=== PATIENT | male | born 1965 | race Caucasian/White ===

== ENCOUNTER 2017-03-25 09:40 | Emergency (ER) | payer OTHER ==
[2017-03-25] MEDS ORDERED: HYDROmorphone 1 MG/ML 1 ML SYRINGE IVP STA (10:18)
[2017-03-25] MEDS ORDERED: ACETAMINOPHEN TAB 500 MG TAB PO STA (10:18)
[2017-03-25] MEDS ORDERED: SODIUM CHLORIDE 0.9% 1,000 ML IV STA ×2 (10:18)
[2017-03-25] MEDS ORDERED: ONDANSETRON 4 MG/2 ML VIAL IVP STA (10:18)
[2017-03-25] MEDS ORDERED: AMPICILLIN-SULBACTAM 3 GM in SODIUM CHLORIDE 0.9% 100 ML IVPB STA (10:19)
[2017-03-25] MEDS ORDERED: KETOROLAC 30 MG/ML 1 ML VIAL IVP STA (10:19)
[2017-03-25] MEDS ORDERED: METOCLOPRAMIDE 5 MG/ML 2 ML VIAL IVP STA (10:25)
--- NOTE | 2017-03-25 10:25 | ED ---
General Adult HPI - General Chief complaint: Dental/Oral Stated complaint: Oral Pain Time Seen by Provider: 03/25/17 10:13 Source: patient Mode of arrival: ambulatory Limitations: no limitations - History of Present Illness Initial comments: This 21-year-old white male presents with a complaint of some right lower dental pain for 2 days. He states that his tooth rotted out and fell out 2 days ago. He also has had some chills but has not checked for any fevers. He complains of a headache as well as occasional neck pain. He has had a cough without production. He states that the pain is severe in nature. He denies any urinary symptoms. He denies any abdominal or flank pain. He states that he took an unknown antibiotic that was left over. He states that it started with an a and was 800 mg. He was nauseated yesterday and vomited. No other complaints or modifying factors. - Related Data Home Medications Medication Instructions Recorded Confirmed Lisinopril [Zestril] 5 mg PO DAILY 03/20/14 03/25/17 Atorvastatin [Lipitor] 20 mg PO HS 01/05/16 03/25/17 Insulin Glargine [Lantus] 25 unit SQ BID 01/05/16 03/25/17 Insulin Glulisine [Apidra Solostar] 15 unit SQ AC-TID 01/05/16 03/25/17 Albuterol Inhaler [Ventolin Hfa 2 puff INHALATION RT-QID 03/25/17 03/25/17 Inhaler] Mometasone/Formoterol [Dulera 100 2 puff INHALATION RT-BID 03/25/17 03/25/17 Mcg/5 Mcg Inhaler] Ranitidine HCl 150 mg PO DAILY PRN 03/25/17 03/25/17 Previous Rx's Medication Instructions Recorded Clindamycin [Cleocin] 300 mg PO Q6H #40 capsule 03/25/17 Ondansetron [Zofran ODT] 8 mg PO Q8HR PRN #12 tab 03/25/17 traMADol HCl [Ultram] 50 - 100 mg PO Q6H PRN #15 tab 03/25/17 Allergies Allergy/AdvReac Type Severity Reaction Status Date / Time cephalexin [From Keflex] AdvReac Nausea & Verified 03/25/17 10:27 Vomiting codeine AdvReac Abdominal Verified 03/25/17 10:27 Pain Review of Systems ROS Statement: Those systems with pertinent positive or pertinent negative responses have been documented in the HPI. ROS Other: All systems not noted in ROS Statement are negative. Past Medical History Past Medical History: Diabetes Mellitus, Hyperlipidemia, Hypertension Additional Past Medical History / Comment(s): migraines, closed head injury History of Any Multi-Drug Resistant Organisms: None Reported Past Surgical History: Orthopedic Surgery Additional Past Surgical History / Comment(s): right leg Past Psychological History: No Psychological Hx Reported Smoking Status: Current every day smoker Past Alcohol Use History: None Reported Past Drug Use History: None Reported General Exam - General Exam Comments Initial Comments: GENERAL: The patient is well nourished and well hydrated. VITAL SIGNS: Heart rate, blood pressure, respiratory rate reviewed as recorded in nurse's notes. EYES: Pupils are round and reactive. Extraocular movements are intact. No conjunctival / lid redness or swelling. ENT: There is significant dental decay throughout mouth. There is increased gingival swelling noted on the right lower dentition. There is no drainable abscess noted. There is some mild facial swelling in the right lower jaw. There is no evidence of Tito's angina or obvious abscess. Airway is patent. Throat is clear. NECK: There is some mild tenderness to the bilateral paracervical musculature. No meningeal signs. No swelling or evidence of injury. No subcutaneous emphysema. Trachea is midline. No thyroid mass. HEART: Regular rate and rhythm. Good peripheral pulses. LUNGS/CHEST: Breath sounds clear and equal bilaterally. No rales, rhonchi, or wheezes. No ecchymosis, subcutaneous emphysema, or tenderness. ABDOMEN: Abdomen soft without tenderness. No palpable masses or organomegaly. No peritoneal signs. No abdominal wall swelling or ecchymosis. EXTREMITIES: No extremity tenderness. Normal muscle tone and function. No thoracolumbar tenderness. NEUROLOGIC: Sensation is grossly intact. Cranial nerve exam reveals face is symmetrical, tongue is midline, speech is clear. SKIN: No abrasions or ecchymosis is noted. No induration or masses noted. PSYCHIATRIC: Alert and oriented. Appropriate behavior and judgment. Limitations: no limitations Course Vital Signs 03/25/17 03/25/17 10:06 11:02 Temperature 101.7 F H Pulse Rate 100 105 H Respiratory 20 18 Rate Blood Pressure 168/88 163/90 O2 Sat by Pulse 98 98 Oximetry Medical Decision Making - Medical Decision Making The patient is seen and examined. All diagnostics were reviewed. An IV is started and he is hydrated. He receives Toradol, Unasyn, Tylenol, and Dilaudid. He is feeling improved on recheck. His laboratory is reviewed and does show elevation of his blood sugar but he is a diabetic and takes insulin. He had a negative chest x-ray. This felt that he definitely has a right periapical abscess with some mild right facial swelling. This is likely the focus of his infection. He is not complaining of any further headaches or neck pain on recheck. It is felt as though he is stable for discharge. Return parameters are discussed. It is highly emphasized that he follow-up with a dentist as soon as possible. - Lab Data Result diagrams: 03/25/17 10:42 03/25/17 10:42 Lab Results 03/25/17 03/25/17 Range/Units 10:42 10:42 WBC 5.5 (3.8-10.6) k/uL RBC 4.44 (4.30-5.90) m/uL Hgb 14.1 (13.0-17.5) gm/dL Hct 40.8 (39.0-53.0) % MCV 92.0 (80.0-100.0) fL MCH 31.8 (25.0-35.0) pg MCHC 34.6 (31.0-37.0) g/dL RDW 13.1 (11.5-15.5) % Plt Count 164 (150-450) k/uL Neutrophils % 80 % Lymphocytes % 12 % Monocytes % 6 % Eosinophils % 1 % Basophils % 0 % Neutrophils # 4.4 (1.3-7.7) k/uL Lymphocytes # 0.7 L (1.0-4.8) k/uL Monocytes # 0.3 (0-1.0) k/uL Eosinophils # 0.1 (0-0.7) k/uL Basophils # 0.0 (0-0.2) k/uL Sodium 137 (137-145) mmol/L Potassium 4.7 (3.5-5.1) mmol/L Chloride 106 (98-107) mmol/L Carbon Dioxide 19 L (22-30) mmol/L Anion Gap 12 mmol/L BUN 17 (9-20) mg/dL Creatinine 0.91 (0.66-1.25) mg/dL Est GFR (MDRD) Af Amer >60 (>60 ml/min/1.73 sqM) Est GFR (MDRD) Non-Af >60 (>60 ml/min/1.73 sqM) Glucose 238 H (74-99) mg/dL Calcium 8.9 (8.4-10.2) mg/dL Disposition Clinical Impression: Fever, Hypertension, Dental caries, Dental abscess, Headache, Nausea and vomiting Disposition: HOME SELF-CARE Condition: Good Instructions: Dental Abscess (ED), Dental Caries (ED), Hypertension (ED) Additional Instructions: Please take Tylenol and/or Motrin as needed for pain or fever. Please follow- up with a dentist as soon as possible. Prescriptions: Clindamycin [Cleocin] 300 mg PO Q6H #40 capsule Ondansetron [Zofran ODT] 8 mg PO Q8HR PRN #12 tab PRN Reason: Nausea traMADol HCl [Ultram] 50 - 100 mg PO Q6H PRN #15 tab PRN Reason: Pain Referrals: Alexy Evangelista MD [Primary Care Provider] - 1-2 days Time of Disposition: 12:58
[2017-03-25 11:13] LABS: Basophils % (A) 0 %; CH 31.3; CHCM 34.2; Eosinophils # (A) 0.1 k/uL (0-0.7); Eosinophils % (A) 1 %; HCT 40.8 % (39.0-53.0); HDW 2.39; HGB 14.1 gm/dL (13.0-17.5); Luc # (Auto) 0.08; Luc % (Auto) 2; Lymphocytes # (A) 0.7 k/uL (1.0-4.8); Lymphocytes % (A) 12 %; MCH 31.8 pg (25.0-35.0); MCHC 34.6 g/dL (31.0-37.0); Mean Platelet Volume 7.8; Monocytes # (A) 0.3 k/uL (0-1.0); Monocytes % (A) 6 %; Neutrophils # (A) 4.4 k/uL (1.3-7.7); Neutrophils % (A) 80 %; RBC 4.44 m/uL (4.30-5.90); RDW 13.1 % (11.5-15.5); WBC 5.5 k/uL (3.8-10.6); WBC (Perox) 5.42
[2017-03-25 11:21] LABS: Anion Gap 12 mmol/L; Blood Urea Nitrogen 17 mg/dL (9-20); Calcium 8.9 mg/dL (8.4-10.2); Carbon Dioxide 19 mmol/L (22-30); Chloride 106 mmol/L (98-107); Glucose 238 mg/dL (74-99); Non-African American GFR(MDRD) >60 (>60 ml/min/1.73 sqM); Potassium 4.7 mmol/L (3.5-5.1); Sodium 137 mmol/L (137-145)
--- NOTE | 2017-03-25 11:31 | XR ---
EXAMINATION TYPE: XR chest 2V DATE OF EXAM: 03/25/2017 COMPARISON: Chest x-ray September 20, 2012 HISTORY: Weakness per order. New fever and lethargy. TECHNIQUE: Frontal and lateral views of the chest are obtained. FINDINGS: There is no focal air space opacity, pleural effusion, or pneumothorax seen. The cardiac silhouette size is within normal limits. Fracture deformity right posterior ninth rib is favored old. IMPRESSION: No suspicious acute pulmonary process.
[2017-03-25 13:25] VITALS: BP 114/62; PULSE 62; RESP 14; TEMP 97.7
== END 2017-03-25 13:31 | disposition home or self-care (01) ==
LOC: EC 09:40
DX: K02.9 Dental caries, unspecified (principal); K04.7 Periapical abscess without sinus; R51 Headache; R11.2 Nausea with vomiting, unspecified; I10 Essential (primary) hypertension; R50.9 Fever, unspecified; E11.9 Type 2 diabetes mellitus without complications; E78.5 Hyperlipidemia, unspecified; F17.200 Nicotine dependence, unspecified, uncomplicated; Z79.4 Long term (current) use of insulin; Z79.899 Other long term (current) drug therapy; Z88.1 Allergy status to other antibiotic agents; Z88.5 Allergy status to narcotic agent
CPT/HCPCS: 36415; 80048; 85025; 87040; 71020; 99283; 96365; 96375 ×3; 96361 ×2; J2765; J1885; J1170; J0295

== ENCOUNTER 2017-04-28 10:40 | Emergency (ER) | payer OTHER ==
[2017-04-28] MEDS ORDERED: SODIUM CHLORIDE 0.9% 500 ML IV ONE (11:18)
--- NOTE | 2017-04-28 11:24 | ED ---
General Adult HPI - General Chief complaint: Seizure Stated complaint: seizure Time Seen by Provider: 04/28/17 10:45 Source: patient, RN notes reviewed Mode of arrival: wheelchair Limitations: no limitations - History of Present Illness Initial comments: This is a 51-year-old male who presents to the emergency department because he woke up late for work. Patient states he might of had a seizure that wasn't witnessed. Patient states he has a history of seizures. Patient thinks he had a seizure because he never wakes up late for work. Patient denies any fever chills. Patient has a mild headache. Patient denies any neck pain. Patient denies chest pain palpitations difficulty breathing shortness breath per patient denies any abdominal pain patient denies nausea vomiting diarrhea. - Related Data Home Medications Medication Instructions Recorded Confirmed Lisinopril [Zestril] 5 mg PO DAILY 03/20/14 04/28/17 Atorvastatin [Lipitor] 20 mg PO HS 01/05/16 04/28/17 Insulin Glargine [Lantus] 35 unit SQ BID 01/05/16 04/28/17 Insulin Glulisine [Apidra Solostar] 15 unit SQ AC-TID 01/05/16 04/28/17 Albuterol Inhaler [Ventolin Hfa 2 puff INHALATION RT-QID 03/25/17 04/28/17 Inhaler] Mometasone/Formoterol [Dulera 100 2 puff INHALATION RT-BID 03/25/17 04/28/17 Mcg/5 Mcg Inhaler] Ranitidine HCl 150 mg PO DAILY PRN 03/25/17 04/28/17 Fluticasone Nasal [place] [Flonase 1 spray EA NOSTRIL DAILY PRN 04/28/17 04/28/17 Nasal [place]] Gabapentin [Neurontin] 800 mg PO TID 04/28/17 04/28/17 Phenytoin Sodium Extended 100 mg PO TID 04/28/17 04/28/17 [Dilantin] Previous Rx's Medication Instructions Recorded Ondansetron [Zofran ODT] 8 mg PO Q8HR PRN #12 tab 03/25/17 Allergies Allergy/AdvReac Type Severity Reaction Status Date / Time cephalexin [From Keflex] AdvReac Nausea & Verified 04/28/17 11:14 Vomiting codeine AdvReac Abdominal Verified 04/28/17 11:14 Pain Review of Systems ROS Statement: Those systems with pertinent positive or pertinent negative responses have been documented in the HPI. ROS Other: All systems not noted in ROS Statement are negative. Past Medical History Past Medical History: Diabetes Mellitus, Hyperlipidemia, Hypertension, Seizure Disorder Additional Past Medical History / Comment(s): migraines, closed head injury History of Any Multi-Drug Resistant Organisms: None Reported Past Surgical History: Orthopedic Surgery Additional Past Surgical History / Comment(s): right leg Past Psychological History: No Psychological Hx Reported Smoking Status: Current every day smoker Past Alcohol Use History: None Reported Past Drug Use History: None Reported General Exam - General Exam Comments Initial Comments: GENERAL: Patient is well-developed and well-nourished. Patient is nontoxic and well- hydrated and is in no acute distress. ENT: Neck is soft and supple. No significant lymphadenopathy is noted. Oropharynx is clear. Moist mucous membranes. Neck has full range of motion without eliciting any pain. EYES: The sclera were anicteric and conjunctiva were pink and moist. Extraocular movements were intact and pupils were equal round and reactive to light. Eyelids were unremarkable. PULMONARY: Unlabored respirations. Good breath sounds bilaterally. No audible rales rhonchi or wheezing was noted. CARDIOVASCULAR: There is a regular rate and rhythm without any murmurs gallops or rubs. ABDOMEN: Soft and nontender with normal bowel sounds. No palpable organomegaly was noted. There is no palpable pulsatile mass. SKIN: Skin is clear with no lesions or rashes and otherwise unremarkable. NEUROLOGIC: Patient is alert and oriented x3. Cranial nerves II through XII are grossly intact. Motor and sensory are also intact. Normal speech, volume and content. Symmetrical smile. MUSCULOSKELETAL: Normal extremities with adequate strength and full range of motion. No lower extremity swelling or edema. No calf tenderness. LYMPHATICS: No significant lymphadenopathy is noted PSYCHIATRIC: Normal psychiatric evaluation. Normal interpersonal interactions appears functionally intact in deals appropriately with others. Limitations: no limitations Course Vital Signs 04/28/17 10:42 Temperature 97.1 F L Pulse Rate 100 Respiratory 18 Rate Blood Pressure 130/81 O2 Sat by Pulse 100 Oximetry Medical Decision Making - Medical Decision Making When the patient's Dilantin came back 0 I confronted the patient about taking his Dilantin and he admitted he is not taking his Dilantin regularly - Lab Data Result diagrams: 04/28/17 11:30 04/28/17 11:30 Lab Results 04/28/17 04/28/17 Range/Units 11:30 11:30 WBC 5.4 (3.8-10.6) k/uL RBC 3.95 L (4.30-5.90) m/uL Hgb 13.6 (13.0-17.5) gm/dL Hct 38.2 L (39.0-53.0) % MCV 96.7 (80.0-100.0) fL MCH 34.5 (25.0-35.0) pg MCHC 35.7 (31.0-37.0) g/dL RDW 14.9 (11.5-15.5) % Plt Count 167 (150-450) k/uL Neutrophils % 74 % Lymphocytes % 20 % Monocytes % 5 % Eosinophils % 1 % Basophils % 0 % Neutrophils # 4.0 (1.3-7.7) k/uL Lymphocytes # 1.1 (1.0-4.8) k/uL Monocytes # 0.3 (0-1.0) k/uL Eosinophils # 0.0 (0-0.7) k/uL Basophils # 0.0 (0-0.2) k/uL Sodium 139 (137-145) mmol/L Potassium 4.9 (3.5-5.1) mmol/L Chloride 107 (98-107) mmol/L Carbon Dioxide 23 (22-30) mmol/L Anion Gap 9 mmol/L BUN 15 (9-20) mg/dL Creatinine 0.80 (0.66-1.25) mg/dL Est GFR (MDRD) Af Amer >60 (>60 ml/min/1.73 sqM) Est GFR (MDRD) Non-Af >60 (>60 ml/min/1.73 sqM) Glucose 120 H (74-99) mg/dL Calcium 8.8 (8.4-10.2) mg/dL Total Bilirubin 0.5 (0.2-1.3) mg/dL AST 33 (17-59) U/L ALT 39 (21-72) U/L Alkaline Phosphatase 97 (38-126) U/L Total Protein 6.6 (6.3-8.2) g/dL Albumin 3.9 (3.5-5.0) g/dL Phenytoin <3.0 ug/mL Disposition Clinical Impression: Drug noncompliance, Generalized seizure Disposition: HOME SELF-CARE Condition: Good Instructions: Recurrent Seizures in Adults (ED) Additional Instructions: Patient must take his Dilantin as it is prescribed. Referrals: Alexy Evangelista MD [Primary Care Provider] - 1-2 days Time of Disposition: 12:16
[2017-04-28 11:58] LABS: ALT 39 U/L (21-72); AST 33 U/L (17-59); Alkaline Phosphatase 97 U/L (38-126); Anion Gap 9 mmol/L; Blood Urea Nitrogen 15 mg/dL (9-20); Calcium 8.8 mg/dL (8.4-10.2); Carbon Dioxide 23 mmol/L (22-30); Chloride 107 mmol/L (98-107); Glucose 120 mg/dL (74-99); Non-African American GFR(MDRD) >60 (>60 ml/min/1.73 sqM); Potassium 4.9 mmol/L (3.5-5.1); Sodium 139 mmol/L (137-145); Total Bilirubin 0.5 mg/dL (0.2-1.3); Total Protein 6.6 g/dL (6.3-8.2)
[2017-04-28 12:01] LABS: Basophils % (A) 0 %; CH 32.4; CHCM 33.7; Eosinophils % (A) 1 %; HCT 38.2 % (39.0-53.0); HDW 2.46; HGB 13.6 gm/dL (13.0-17.5); Luc # (Auto) 0.06; Luc % (Auto) 1; Lymphocytes # (A) 1.1 k/uL (1.0-4.8); Lymphocytes % (A) 20 %; MCH 34.5 pg (25.0-35.0); MCHC 35.7 g/dL (31.0-37.0); MCV 96.7 fL (80.0-100.0); Monocytes # (A) 0.3 k/uL (0-1.0); Monocytes % (A) 5 %; Neutrophils % (A) 74 %; RBC 3.95 m/uL (4.30-5.90); RDW 14.9 % (11.5-15.5); WBC 5.4 k/uL (3.8-10.6); WBC (Perox) 5.45
[2017-04-28] MEDS ORDERED: PHENYTOIN SODIUM INJ 1,000 MG in SODIUM CHLORIDE 0.9% 100 ML IVPB STA (12:12)
[2017-04-28 13:03] VITALS: BP 147/88; PULSE 81; RESP 20; TEMP 98.1
== END 2017-04-28 13:17 | disposition home or self-care (01) ==
LOC: EC 10:40
DX: R56.9 Unspecified convulsions (principal); E11.9 Type 2 diabetes mellitus without complications; E78.5 Hyperlipidemia, unspecified; I10 Essential (primary) hypertension; F17.200 Nicotine dependence, unspecified, uncomplicated; Z79.4 Long term (current) use of insulin; Z79.51 Long term (current) use of inhaled steroids; Z79.899 Other long term (current) drug therapy; Z88.1 Allergy status to other antibiotic agents; Z88.5 Allergy status to narcotic agent; Z91.14 Patient's other noncompliance with medication regimen
CPT/HCPCS: 99284 ×2; 96365 ×2; 96361 ×2; 36415; 80053; 80185; 85025; J1165

== ENCOUNTER 2017-05-03 15:37 | Emergency (ER) | payer OTHER ==
[2017-05-03 16:25] LABS: Glucose,Whole Blood 85 mg/dL (75-99)
--- NOTE | 2017-05-03 16:33 | ED ---
Recheck HPI - General Chief Complaint: Recheck/Abnormal Lab/Rx Stated Complaint: Hypoglycemia Time Seen by Provider: 05/03/17 15:38 Source: patient, EMS, RN notes reviewed Mode of arrival: EMS Limitations: no limitations - History of Present Illness Initial Comments: This a 51-year-old male presents emergency Department chief complaint of hypoglycemia. Patient's girlfriend called EMS because patient was lethargic and less responsive than usual. He is on have a blood glucose of 38. Patient was given dextrose which his blood sugar was 212. Patient states that he feels completely normal this time. Patient states she's been having issues with this ever since his long-acting insulin was switched from Lantus. Patient states that his insulin was increased to 35 units twice daily. Patient is not sure because his long-acting or short-acting states he does not think he can insulin after lunch. Patient states this was recently increased because his A1c was elevated to 9. Patient states that he was also given generic long-acting because was cheaper for him. - Related Data Home Medications Medication Instructions Recorded Confirmed Lisinopril [Zestril] 5 mg PO DAILY 03/20/14 05/03/17 Atorvastatin [Lipitor] 20 mg PO HS 01/05/16 05/03/17 Insulin Glulisine [Apidra Solostar] 15 unit SQ AC-TID 01/05/16 05/03/17 Albuterol Inhaler [Ventolin Hfa 2 puff INHALATION RT-QID PRN 03/25/17 05/03/17 Inhaler] Mometasone/Formoterol [Dulera 100 2 puff INHALATION RT-BID 03/25/17 05/03/17 Mcg/5 Mcg Inhaler] Ranitidine HCl 150 mg PO DAILY PRN 03/25/17 05/03/17 Fluticasone Nasal [place] [Flonase 1 spray EA NOSTRIL DAILY PRN 04/28/17 05/03/17 Nasal [place]] Gabapentin [Neurontin] 800 mg PO TID 04/28/17 05/03/17 Phenytoin Sodium Extended 100 mg PO TID 04/28/17 05/03/17 [Dilantin] Insulin Glargine,Hum.rec.anlog 35 unit SQ BID 05/03/17 05/03/17 [Basaglar Kwikpen U-100] Previous Rx's Medication Instructions Recorded Ondansetron [Zofran ODT] 8 mg PO Q8HR PRN #12 tab 03/25/17 Allergies Allergy/AdvReac Type Severity Reaction Status Date / Time cephalexin [From Keflex] AdvReac Nausea & Verified 05/03/17 16:41 Vomiting codeine AdvReac Abdominal Verified 05/03/17 16:41 Pain Review of Systems ROS Statement: Those systems with pertinent positive or pertinent negative responses have been documented in the HPI. ROS Other: All systems not noted in ROS Statement are negative. Past Medical History Past Medical History: Diabetes Mellitus, Hyperlipidemia, Hypertension, Seizure Disorder Additional Past Medical History / Comment(s): migraines, closed head injury History of Any Multi-Drug Resistant Organisms: None Reported Past Surgical History: Orthopedic Surgery Additional Past Surgical History / Comment(s): right leg Past Psychological History: No Psychological Hx Reported Smoking Status: Current every day smoker Past Alcohol Use History: None Reported Past Drug Use History: None Reported General Exam Limitations: no limitations General appearance: alert, in no apparent distress Head exam: Present: atraumatic, normocephalic, normal inspection Eye exam: Present: normal appearance, PERRL, EOMI. Absent: scleral icterus, conjunctival injection, periorbital swelling ENT exam: Present: normal exam, normal oropharynx, mucous membranes moist, TM's normal bilaterally, normal external ear exam Neck exam: Present: normal inspection, full ROM. Absent: tenderness, meningismus, lymphadenopathy Respiratory exam: Present: normal lung sounds bilaterally. Absent: respiratory distress, wheezes, rales, rhonchi, stridor Cardiovascular Exam: Present: regular rate, normal rhythm, normal heart sounds. Absent: systolic murmur, diastolic murmur, rubs, gallop, clicks GI/Abdominal exam: Present: soft, normal bowel sounds. Absent: distended, tenderness, guarding, rebound, rigid Neurological exam: Present: alert, oriented X3, CN II-XII intact Skin exam: Present: warm, dry, intact, normal color. Absent: rash Course Vital Signs 05/03/17 05/03/17 15:41 18:30 Temperature 97.4 F L 98.1 F Pulse Rate 79 81 Respiratory 18 16 Rate Blood Pressure 129/80 136/73 O2 Sat by Pulse 98 100 Oximetry Medical Decision Making - Medical Decision Making 51-year-old male present emergency department for hypoglycemic event. Patient' s glucose has stabilized. I did a long discussion with him regarding his insulin use and pulse monitoring. Patient is advised he needs to monitor frequently tonight and keep something on him at this time. He needs follow-up for adjustment of his insulin and needs further education. Return parameters were discussed. - Lab Data Lab Results 05/03/17 05/03/17 05/03/17 Range/Units 16:22 17:06 17:46 POC Glucose (mg/dL) 85 102 H 91 (75-99) mg/dL POC Glu Reinforced Ironworker ID Helen Beard Megan Shuler, Cecelia 05/03/17 Range/Units 18:23 POC Glucose (mg/dL) 106 H (75-99) mg/dL POC Glu Reinforced Ironworker ID Gaviota Harris Disposition Clinical Impression: Hypoglycemia Disposition: HOME SELF-CARE Condition: Stable Instructions: Hypoglycemia in a Person with Diabetes (ED) Additional Instructions: Please return to the Emergency Department if symptoms worsen or any other concerns. Referrals: Alexy Evangelista MD [Primary Care Provider] - 1-2 days Time of Disposition: 18:36
[2017-05-03 17:09] LABS: Glucose,Whole Blood 102 mg/dL (75-99)
[2017-05-03 17:50] LABS: Glucose,Whole Blood 91 mg/dL (75-99)
[2017-05-03 18:26] LABS: Glucose,Whole Blood 106 mg/dL (75-99)
[2017-05-03 18:33] VITALS: BP 136/73; PULSE 81; RESP 16; TEMP 98.1
== END 2017-05-03 18:44 | disposition home or self-care (01) ==
LOC: EC 15:37
DX: E11.649 Type 2 diabetes mellitus with hypoglycemia without coma (principal); E78.5 Hyperlipidemia, unspecified; I10 Essential (primary) hypertension; G40.909 Epilepsy, unspecified, not intractable, without status epilepticus; F17.200 Nicotine dependence, unspecified, uncomplicated; Z79.4 Long term (current) use of insulin; Z79.51 Long term (current) use of inhaled steroids; Z79.899 Other long term (current) drug therapy; Z88.1 Allergy status to other antibiotic agents; Z88.5 Allergy status to narcotic agent
CPT/HCPCS: 36415; 99285

== ENCOUNTER 2017-05-10 16:54 | Emergency (ER) | payer OTHER ==
[2017-05-10 17:27] LABS: Glucose,Whole Blood 86 mg/dL (75-99)
--- NOTE | 2017-05-10 17:42 | ED ---
General Adult HPI - General Chief complaint: Recheck/Abnormal Lab/Rx Stated complaint: Low Blood Sugar Time Seen by Provider: 05/10/17 17:01 Source: patient, EMS, RN notes reviewed Mode of arrival: EMS Limitations: no limitations - History of Present Illness Initial comments: 51-year-old male presents emergency from via EMS chief complaint of a syncopal event. Patient states that he is not sure exactly what happened. Patient states he may have gotten into much insulin though he does state he's been having a lot of issues with new generic long-acting insulin. Patient states that he's had several events like this has been seen in the hospital. Patient states that today he woke up in the EMS and was confused. Patient states he feels completely normal at this time. Patient's girlfriend did call 911 because he was confused patient denies headache, dizziness, chest pain, shortness breath, nausea, vomiting diarrhea constipation. - Related Data Home Medications Medication Instructions Recorded Confirmed Lisinopril [Zestril] 5 mg PO DAILY 03/20/14 05/10/17 Atorvastatin [Lipitor] 20 mg PO HS 01/05/16 05/10/17 Insulin Glulisine [Apidra Solostar] 15 unit SQ AC-TID 01/05/16 05/10/17 Albuterol Inhaler [Ventolin Hfa 2 puff INHALATION RT-QID PRN 03/25/17 05/10/17 Inhaler] Mometasone/Formoterol [Dulera 100 2 puff INHALATION RT-BID 03/25/17 05/10/17 Mcg/5 Mcg Inhaler] Ranitidine HCl 150 mg PO DAILY PRN 03/25/17 05/10/17 Fluticasone Nasal [place] [Flonase 1 spray EA NOSTRIL DAILY PRN 04/28/17 05/10/17 Nasal [place]] Gabapentin [Neurontin] 800 mg PO TID 04/28/17 05/10/17 Phenytoin Sodium Extended 100 mg PO TID 04/28/17 05/10/17 [Dilantin] Insulin Glargine,Hum.rec.anlog 35 unit SQ BID 05/03/17 05/10/17 [Basaglar Kwikpen U-100] Previous Rx's Medication Instructions Recorded Ondansetron [Zofran ODT] 8 mg PO Q8HR PRN #12 tab 03/25/17 Allergies Allergy/AdvReac Type Severity Reaction Status Date / Time cephalexin [From Keflex] AdvReac Nausea & Verified 05/10/17 17:20 Vomiting codeine AdvReac Abdominal Verified 05/10/17 17:20 Pain Review of Systems ROS Statement: Those systems with pertinent positive or pertinent negative responses have been documented in the HPI. ROS Other: All systems not noted in ROS Statement are negative. Past Medical History Past Medical History: Diabetes Mellitus, Hyperlipidemia, Hypertension, Seizure Disorder Additional Past Medical History / Comment(s): migraines, closed head injury History of Any Multi-Drug Resistant Organisms: None Reported Past Surgical History: Orthopedic Surgery Additional Past Surgical History / Comment(s): right leg Past Psychological History: No Psychological Hx Reported Smoking Status: Current every day smoker Past Alcohol Use History: None Reported Past Drug Use History: None Reported General Exam Limitations: no limitations General appearance: alert, in no apparent distress Head exam: Present: atraumatic, normocephalic, normal inspection Eye exam: Present: normal appearance, PERRL, EOMI. Absent: scleral icterus, conjunctival injection, periorbital swelling ENT exam: Present: mucous membranes moist, TM's normal bilaterally, normal external ear exam. Absent: normal exam, normal oropharynx (Edentulous) Neck exam: Present: normal inspection, full ROM. Absent: tenderness, meningismus, lymphadenopathy Respiratory exam: Present: normal lung sounds bilaterally. Absent: respiratory distress, wheezes, rales, rhonchi, stridor Cardiovascular Exam: Present: regular rate, normal rhythm, normal heart sounds. Absent: systolic murmur, diastolic murmur, rubs, gallop, clicks GI/Abdominal exam: Present: soft, normal bowel sounds. Absent: distended, tenderness, guarding, rebound, rigid Neurological exam: Present: alert, oriented X3, CN II-XII intact, reflexes normal. Absent: motor sensory deficit Skin exam: Present: warm, dry, intact, normal color. Absent: rash Course Vital Signs 05/10/17 17:03 Temperature 98.6 F Pulse Rate 74 Respiratory 20 Rate Blood Pressure 122/56 O2 Sat by Pulse 99 Oximetry Medical Decision Making - Medical Decision Making 51-year-old male present emergency department for hypoglycemic event. Patient' s blood sugar has stabilized. Patient will be discharged with did discuss monitoring his blood sugar more often and he'll follow-up with his PCP. Return parameters were discussed. - Lab Data Lab Results 05/10/17 Range/Units 17:00 POC Glucose (mg/dL) 86 (75-99) mg/dL POC Glu Embroidery Finisher ID Disposition Clinical Impression: Hypoglycemia Disposition: HOME SELF-CARE Condition: Stable Instructions: Hypoglycemia in a Person with Diabetes (ED) Additional Instructions: Please return to the Emergency Department if symptoms worsen or any other concerns. Referrals: Alexy Evangelista MD [Primary Care Provider] - 1-2 days Time of Disposition: 18:10
[2017-05-10 18:13] LABS: Glucose,Whole Blood 228 mg/dL (75-99)
[2017-05-10 18:27] VITALS: BP 121/75; PULSE 85; RESP 18; TEMP 97.4
== END 2017-05-10 18:30 | disposition home or self-care (01) ==
LOC: EC 16:54
DX: E11.649 Type 2 diabetes mellitus with hypoglycemia without coma (principal); E78.5 Hyperlipidemia, unspecified; I10 Essential (primary) hypertension; G40.909 Epilepsy, unspecified, not intractable, without status epilepticus; F17.200 Nicotine dependence, unspecified, uncomplicated; Z79.4 Long term (current) use of insulin; Z79.51 Long term (current) use of inhaled steroids; Z79.899 Other long term (current) drug therapy; Z88.1 Allergy status to other antibiotic agents; Z88.5 Allergy status to narcotic agent
CPT/HCPCS: 36415; 99285

== ENCOUNTER 2017-05-25 15:55 | Emergency (ER) | payer OTHER ==
[2017-05-25] MEDS ORDERED: IBUPROFEN 600 MG TAB PO STA (17:43)
[2017-05-25] MEDS ORDERED: ACETAMINOPHEN TAB 500 MG TAB PO STA (17:43)
[2017-05-25] MEDS ORDERED: ONDANSETRON 4 MG/2 ML VIAL IVP STA (17:44)
[2017-05-25 17:45] VITALS: TEMP 101.2
[2017-05-25] MEDS ORDERED: IPRATROPIUM-ALBUTEROL 3 ML NEB INHALATION STA (17:46)
--- NOTE | 2017-05-25 17:48 | ED ---
Nausea/Vomiting/Diarrhea HPI - General Chief complaint: Nausea/Vomiting/Diarrhea Stated complaint: vomiting Time Seen by Provider: 05/25/17 17:25 Source: patient, RN notes reviewed, old records reviewed Mode of arrival: ambulatory Limitations: no limitations - History of Present Illness Initial comments: This is a 51-year-old male presents emergency Department chief complaint of cough for approximately one day, multiple also to vomiting. He denies any abdominal pain. He reports he is a heavy smoker smoking possibly a pack a day for many years. Patient states that he has been feeling very ill for the past day. He reports that he has had Tylenol 10 AM today. He is reports he feels very chilled. He denies any changes in bowel habits. Denies any changes in urination as well. Patient states that he has no history of sick contacts. Patient is history of high blood pressure, diabetes, neuropathy, hyperlipidemia. - Related Data Home Medications Medication Instructions Recorded Confirmed Lisinopril [Zestril] 5 mg PO DAILY 03/20/14 05/25/17 Atorvastatin [Lipitor] 20 mg PO HS 01/05/16 05/25/17 Insulin Glulisine [Apidra Solostar] 15 unit SQ AC-TID 01/05/16 05/25/17 Albuterol Inhaler [Ventolin Hfa 2 puff INHALATION RT-QID PRN 03/25/17 05/25/17 Inhaler] Mometasone/Formoterol [Dulera 100 2 puff INHALATION RT-BID 03/25/17 05/25/17 Mcg/5 Mcg Inhaler] Ranitidine HCl 150 mg PO DAILY PRN 03/25/17 05/25/17 Fluticasone Nasal [place] [Flonase 1 spray EA NOSTRIL DAILY PRN 04/28/17 05/25/17 Nasal [place]] Gabapentin [Neurontin] 800 mg PO TID 04/28/17 05/25/17 Phenytoin Sodium Extended 100 mg PO TID 04/28/17 05/25/17 [Dilantin] Insulin Glargine,Hum.rec.anlog 20 unit SQ HS 05/03/17 05/25/17 [Basaglar Kwikpen U-100] Baclofen 10 mg PO BID 05/25/17 05/25/17 Previous Rx's Medication Instructions Recorded Ondansetron [Zofran ODT] 8 mg PO Q8HR PRN #12 tab 03/25/17 Albuterol Inhaler [Ventolin Hfa 1 - 2 puff INHALATION Q6HR PRN #1 05/25/17 Inhaler] inhaler Levofloxacin [Levaquin] 750 mg PO DAILY #5 tab 05/25/17 Ondansetron Odt [Zofran Odt] 4 mg PO Q8HR PRN #12 tab 05/25/17 Promethazine/Dextromethorphan 5 ml PO TID #120 ml 05/25/17 [Phenergan DM Syrup] Allergies Allergy/AdvReac Type Severity Reaction Status Date / Time cephalexin [From Keflex] AdvReac Nausea & Verified 05/25/17 17:23 Vomiting codeine AdvReac Abdominal Verified 05/25/17 17:23 Pain Review of Systems ROS Statement: Those systems with pertinent positive or pertinent negative responses have been documented in the HPI. ROS Other: All systems not noted in ROS Statement are negative. Past Medical History Past Medical History: Diabetes Mellitus, Hyperlipidemia, Hypertension, Seizure Disorder Additional Past Medical History / Comment(s): migraines, closed head injury History of Any Multi-Drug Resistant Organisms: None Reported Past Surgical History: Orthopedic Surgery Additional Past Surgical History / Comment(s): right leg Past Psychological History: No Psychological Hx Reported Smoking Status: Current every day smoker Past Alcohol Use History: None Reported Past Drug Use History: None Reported General Exam - General Exam Comments Initial Comments: 51-year-old male. No acute distress. Limitations: no limitations General appearance: alert, in no apparent distress Head exam: Present: atraumatic, normocephalic, normal inspection Eye exam: Present: normal appearance, PERRL, EOMI. Absent: scleral icterus, conjunctival injection, periorbital swelling ENT exam: Present: normal exam, mucous membranes moist Neck exam: Present: normal inspection. Absent: tenderness, meningismus, lymphadenopathy Respiratory exam: Present: wheezes. Absent: normal lung sounds bilaterally, respiratory distress, rales, rhonchi, stridor Cardiovascular Exam: Present: regular rate, normal rhythm, normal heart sounds. Absent: systolic murmur, diastolic murmur, rubs, gallop, clicks GI/Abdominal exam: Present: soft, normal bowel sounds. Absent: distended, tenderness, guarding, rebound, rigid Extremities exam: Present: normal inspection, full ROM, normal capillary refill. Absent: tenderness, pedal edema, joint swelling, calf tenderness Back exam: Present: normal inspection Neurological exam: Present: alert, oriented X3, CN II-XII intact Psychiatric exam: Present: normal affect, normal mood Skin exam: Present: warm, dry, intact, normal color. Absent: rash Course Vital Signs 05/25/17 05/25/17 05/25/17 16:02 17:45 18:01 Temperature 99.0 F 101.2 F H Pulse Rate 108 H 90 Respiratory 20 Rate Blood Pressure 110/66 O2 Sat by Pulse 99 Oximetry 05/25/17 05/25/17 18:10 18:15 Temperature Pulse Rate 88 92 Respiratory 18 Rate Blood Pressure 120/71 O2 Sat by Pulse 98 Oximetry Medical Decision Making - Medical Decision Making Patient is a 51-year-old male chief complaint of cough, and multiple doses of vomiting for one day. Patient did have some significant wheezing on initial exam. He is a heavy smoker. Patient's labwork was reviewed. No significant leukocytosis. Negative lactic acid. He did arrive with a fever 101.2. Was given Tylenol and Motrin, given IV hydration. Blood cultures also obtained. Patient's chest x-ray was reviewed and showed a minimal development of left lower lobe compared to old exam. Patient is given initial dose of Levaquin emergency department. Reevaluated after breathing treatment and he has feeling somewhat better. Patient will be discharged at this time with close follow-up with primary care provider. Discussed with his negative lab work, and patient does appear to be clinically after breathing treatment patient is safe for discharge. Discussed the importance of very close follow-up with his primary care provider. Discussed that if these symptoms are continuing to worse despite being on a back patient should return. Patient agrees to treatment plan will comply. Return parameters were discussed. - Lab Data Result diagrams: 05/25/17 18:00 05/25/17 18:00 Lab Results 05/25/17 05/25/17 05/25/17 Range/Units 18:00 18:00 18:00 WBC 10.2 (3.8-10.6) k/uL RBC 4.16 L (4.30-5.90) m/uL Hgb 12.9 L (13.0-17.5) gm/dL Hct 39.3 (39.0-53.0) % MCV 94.3 (80.0-100.0) fL MCH 31.1 (25.0-35.0) pg MCHC 33.0 (31.0-37.0) g/dL RDW 13.0 (11.5-15.5) % Plt Count 173 (150-450) k/uL Neutrophils % 84 % Lymphocytes % 8 % Monocytes % 6 % Eosinophils % 1 % Basophils % 0 % Neutrophils # 8.6 H (1.3-7.7) k/uL Lymphocytes # 0.8 L (1.0-4.8) k/uL Monocytes # 0.6 (0-1.0) k/uL Eosinophils # 0.1 (0-0.7) k/uL Basophils # 0.0 (0-0.2) k/uL PT (9.0-12.0) sec INR (<1.2) APTT (22.0-30.0) sec Sodium 134 L (137-145) mmol/L Potassium 4.2 (3.5-5.1) mmol/L Chloride 104 (98-107) mmol/L Carbon Dioxide 22 (22-30) mmol/L Anion Gap 8 mmol/L BUN 20 (9-20) mg/dL Creatinine 0.90 (0.66-1.25) mg/dL Est GFR (MDRD) Af Amer >60 (>60 ml/min/1.73 sqM) Est GFR (MDRD) Non-Af >60 (>60 ml/min/1.73 sqM) Glucose 183 H (74-99) mg/dL Plasma Lactic Acid Otf 0.8 (0.7-2.0) mmol/L Calcium 9.1 (8.4-10.2) mg/dL Total Bilirubin 0.4 (0.2-1.3) mg/dL AST 26 (17-59) U/L ALT 38 (21-72) U/L Alkaline Phosphatase 100 (38-126) U/L Total Protein 6.7 (6.3-8.2) g/dL Albumin 3.8 (3.5-5.0) g/dL 05/25/17 Range/Units 18:00 WBC (3.8-10.6) k/uL RBC (4.30-5.90) m/uL Hgb (13.0-17.5) gm/dL Hct (39.0-53.0) % MCV (80.0-100.0) fL MCH (25.0-35.0) pg MCHC (31.0-37.0) g/dL RDW (11.5-15.5) % Plt Count (150-450) k/uL Neutrophils % % Lymphocytes % % Monocytes % % Eosinophils % % Basophils % % Neutrophils # (1.3-7.7) k/uL Lymphocytes # (1.0-4.8) k/uL Monocytes # (0-1.0) k/uL Eosinophils # (0-0.7) k/uL Basophils # (0-0.2) k/uL PT 10.1 (9.0-12.0) sec INR 1.0 (<1.2) APTT 23.5 (22.0-30.0) sec Sodium (137-145) mmol/L Potassium (3.5-5.1) mmol/L Chloride (98-107) mmol/L Carbon Dioxide (22-30) mmol/L Anion Gap mmol/L BUN (9-20) mg/dL Creatinine (0.66-1.25) mg/dL Est GFR (MDRD) Af Amer (>60 ml/min/1.73 sqM) Est GFR (MDRD) Non-Af (>60 ml/min/1.73 sqM) Glucose (74-99) mg/dL Plasma Lactic Acid Otf (0.7-2.0) mmol/L Calcium (8.4-10.2) mg/dL Total Bilirubin (0.2-1.3) mg/dL AST (17-59) U/L ALT (21-72) U/L Alkaline Phosphatase (38-126) U/L Total Protein (6.3-8.2) g/dL Albumin (3.5-5.0) g/dL - Radiology Data Radiology results: report reviewed There is evidence of minimal infiltrate in the left lower lobe compared to old exam. Disposition Clinical Impression: Left lower lobe pneumonia, Nausea & vomiting Disposition: HOME SELF-CARE Condition: Good Instructions: Pneumonia (ED) Additional Instructions: Patient is advised to rest, increase fluids. Take the medications as prescribed. Patient should have close follow-up with primary care provider. Use the inhaler as well. Return to the emergency department if symptoms continue to persist or any worsening signs or symptoms occur. Patient to take Motrin or Tylenol for fever or pain. Prescriptions: Albuterol Inhaler [Ventolin Hfa Inhaler] 1 - 2 puff INHALATION Q6HR PRN #1 inhaler PRN Reason: Cough Levofloxacin [Levaquin] 750 mg PO DAILY #5 tab Ondansetron Odt [Zofran Odt] 4 mg PO Q8HR PRN #12 tab PRN Reason: nausea Promethazine/Dextromethorphan [Phenergan DM Syrup] 5 ml PO TID #120 ml Referrals: Alexy Evangelista MD [Primary Care Provider] - 1-2 days Time of Disposition: 19:20
[2017-05-25 18:16] LABS: Basophils % (A) 0 %; CH 32.2; CHCM 34.3; Eosinophils # (A) 0.1 k/uL (0-0.7); Eosinophils % (A) 1 %; HCT 39.3 % (39.0-53.0); HDW 2.31; HGB 12.9 gm/dL (13.0-17.5); Luc % (Auto) 1; Lymphocytes # (A) 0.8 k/uL (1.0-4.8); Lymphocytes % (A) 8 %; MCH 31.1 pg (25.0-35.0); MCV 94.3 fL (80.0-100.0); Mean Platelet Volume 7.5; Monocytes # (A) 0.6 k/uL (0-1.0); Monocytes % (A) 6 %; Neutrophils # (A) 8.6 k/uL (1.3-7.7); Neutrophils % (A) 84 %; RBC 4.16 m/uL (4.30-5.90); WBC 10.2 k/uL (3.8-10.6); WBC (Perox) 10.03
[2017-05-25] MEDS: SODIUM CHLORIDE 0.9% 500 ML IV SCH ×4 (18:20→18:56)
[2017-05-25 18:24] LABS: Partial Thromboplastin Time 23.5 sec (22.0-30.0); Prothrombin Time 10.1 sec (9.0-12.0)
[2017-05-25 18:28] LABS: ALT 38 U/L (21-72); AST 26 U/L (17-59); Alkaline Phosphatase 100 U/L (38-126); Anion Gap 8 mmol/L; Blood Urea Nitrogen 20 mg/dL (9-20); Calcium 9.1 mg/dL (8.4-10.2); Carbon Dioxide 22 mmol/L (22-30); Chloride 104 mmol/L (98-107); Glucose 183 mg/dL (74-99); Non-African American GFR(MDRD) >60 (>60 ml/min/1.73 sqM); Potassium 4.2 mmol/L (3.5-5.1); Sodium 134 mmol/L (137-145); Total Bilirubin 0.4 mg/dL (0.2-1.3); Total Protein 6.7 g/dL (6.3-8.2)
--- NOTE | 2017-05-25 18:57 | XR ---
EXAMINATION TYPE: XR chest 2V DATE OF EXAM: 05/25/2017 COMPARISON: 03/25/2017 HISTORY: Vomiting and fever TECHNIQUE: Frontal and lateral views of the chest are obtained. FINDINGS: Heart and mediastinum are normal. There is evidence of a mild reticular nodular infiltrate in the superior segment left lower lobe. The other lung bhatia are clear. There is no pleural effusi on. Exam is limited by the arms over the heart on the lateral view. IMPRESSION: There is evidence of a new minimal infiltrate in the left lower lobe compared to old exa m.
[2017-05-25] MEDS ORDERED: LEVOFLOXACIN 750 MG TAB PO STA (19:22)
[2017-05-25] MEDS ORDERED: ONDANSETRON 4 MG ODT STARTER PACK 2 TAB BTL PO STA (19:23)
[2017-05-25 19:52] VITALS: BP 119/66; PULSE 90; RESP 16
== END 2017-05-25 19:51 | disposition home or self-care (01) ==
LOC: EC 15:55
DX: J18.9 Pneumonia, unspecified organism (principal); R11.2 Nausea with vomiting, unspecified; E11.9 Type 2 diabetes mellitus without complications; E78.5 Hyperlipidemia, unspecified; I10 Essential (primary) hypertension; G40.909 Epilepsy, unspecified, not intractable, without status epilepticus; F17.200 Nicotine dependence, unspecified, uncomplicated; Z79.4 Long term (current) use of insulin; Z79.51 Long term (current) use of inhaled steroids; Z79.899 Other long term (current) drug therapy; Z88.1 Allergy status to other antibiotic agents; Z88.5 Allergy status to narcotic agent
CPT/HCPCS: 36415; 94640; 80053; 83605; 85025; 85610; 85730; 87040; 87502; 71020; 99284; 96374; 96361; J2405; S0119

== ENCOUNTER 2017-08-10 14:43 | Emergency (ER) | payer OTHER ==
[2017-08-10 14:50] LABS: Glucose,Whole Blood 102 mg/dL (75-99)
[2017-08-10 14:51] VITALS: RESP 16
[2017-08-10 15:25] LABS: Glucose,Whole Blood 110 mg/dL (75-99)
[2017-08-10 15:29] LABS: Basophils % (A) 0 %; Eosinophils # (A) 0.1 k/uL (0-0.7); Eosinophils % (A) 2 %; HGB 13.2 gm/dL (13.0-17.5); Lymphocytes # (A) 1.9 k/uL (1.0-4.8); Lymphocytes % (A) 26 %; MCH 30.9 pg (25.0-35.0); MCHC 33.1 g/dL (31.0-37.0); MCV 93.5 fL (80.0-100.0); Mean Platelet Volume 7.3; Monocytes # (A) 0.4 k/uL (0-1.0); Monocytes % (A) 6 %; Neutrophils # (A) 4.7 k/uL (1.3-7.7); Neutrophils % (A) 65 %; Platelet Count 207 k/uL (150-450); RBC 4.28 m/uL (4.30-5.90); RDW 13.1 % (11.5-15.5); WBC 7.3 k/uL (3.8-10.6)
--- NOTE | 2017-08-10 15:36 | ED ---
General Adult HPI - General Chief complaint: Recheck/Abnormal Lab/Rx Stated complaint: Diabetic Time Seen by Provider: 08/10/17 14:45 Source: patient, RN notes reviewed Mode of arrival: EMS Limitations: no limitations - History of Present Illness Initial comments: This a 51-year-old male comes emergency Department because her sugar was 43 according the paramedics. He received a half amp of glucose and is now alert and oriented 3 and patient states he is without any complaints. Patient states prior to the event he had no complaint. Patient states he believes he took 15 Units of insulin at lunch mistakenly and he did not eat his full normal lunch. Patient denies any chest pain difficulty breathing shortest breath. Patient had a headache patient with numbness weakness. Patient denied abdominal pain patient denies nausea vomiting diarrhea. Patient any recent injury or fall. - Related Data Home Medications Medication Instructions Recorded Confirmed Lisinopril [Zestril] 5 mg PO DAILY 03/20/14 08/10/17 Atorvastatin [Lipitor] 20 mg PO HS 01/05/16 08/10/17 Insulin Glulisine [Apidra Solostar] 10 unit SQ AC-TID 01/05/16 08/10/17 Albuterol Inhaler [Ventolin Hfa 2 puff INHALATION RT-QID PRN 03/25/17 08/10/17 Inhaler] Mometasone/Formoterol [Dulera 100 2 puff INHALATION RT-BID 03/25/17 08/10/17 Mcg/5 Mcg Inhaler] Ranitidine HCl 150 mg PO DAILY PRN 03/25/17 08/10/17 Fluticasone Nasal [place] [Flonase 1 spray EA NOSTRIL DAILY PRN 04/28/17 08/10/17 Nasal [place]] Gabapentin [Neurontin] 800 mg PO TID 04/28/17 08/10/17 Phenytoin Sodium Extended 100 mg PO TID 04/28/17 08/10/17 [Dilantin] Baclofen 10 mg PO BID 05/25/17 08/10/17 Insulin Glargine [Lantus] 25 unit SQ DAILY 08/10/17 08/10/17 Promethazine/Dextromethorphan 5 ml PO TID PRN 08/10/17 08/10/17 [Phenergan DM Syrup] Previous Rx's Medication Instructions Recorded Ondansetron Odt [Zofran Odt] 4 mg PO Q8HR PRN #12 tab 05/25/17 Allergies Allergy/AdvReac Type Severity Reaction Status Date / Time cephalexin [From Keflex] AdvReac Nausea & Verified 08/10/17 15:24 Vomiting codeine AdvReac Abdominal Verified 08/10/17 15:24 Pain Review of Systems ROS Statement: Those systems with pertinent positive or pertinent negative responses have been documented in the HPI. ROS Other: All systems not noted in ROS Statement are negative. Past Medical History Past Medical History: Diabetes Mellitus, Hyperlipidemia, Hypertension, Seizure Disorder Additional Past Medical History / Comment(s): migraines, closed head injury History of Any Multi-Drug Resistant Organisms: None Reported Past Surgical History: Orthopedic Surgery Additional Past Surgical History / Comment(s): right leg Past Psychological History: No Psychological Hx Reported Smoking Status: Current every day smoker Past Alcohol Use History: None Reported Past Drug Use History: None Reported General Exam - General Exam Comments Initial Comments: GENERAL: Patient is well-developed and well-nourished. Patient is nontoxic and well- hydrated and is in mild distress. ENT: Neck is soft and supple. No significant lymphadenopathy is noted. Oropharynx is clear. Moist mucous membranes. Neck has full range of motion without eliciting any pain. EYES: The sclera were anicteric and conjunctiva were pink and moist. Extraocular movements were intact and pupils were equal round and reactive to light. Eyelids were unremarkable. PULMONARY: Unlabored respirations. Good breath sounds bilaterally. No audible rales rhonchi or wheezing was noted. CARDIOVASCULAR: There is a regular rate and rhythm without any murmurs gallops or rubs. ABDOMEN: Soft and nontender with normal bowel sounds. No palpable organomegaly was noted. There is no palpable pulsatile mass. SKIN: Skin is clear with no lesions or rashes and otherwise unremarkable. NEUROLOGIC: Patient is alert and oriented x3. Cranial nerves II through XII are grossly intact. Motor and sensory are also intact. Normal speech, volume and content. Symmetrical smile. MUSCULOSKELETAL: Normal extremities with adequate strength and full range of motion. No lower extremity swelling or edema. No calf tenderness. LYMPHATICS: No significant lymphadenopathy is noted PSYCHIATRIC: Normal psychiatric evaluation. Normal interpersonal interactions appears functionally intact in deals appropriately with others. No signs of depression. No signs of anxiety. Limitations: no limitations Course Vital Signs 08/10/17 14:45 Temperature 96.7 F L Pulse Rate 75 Respiratory 16 Rate Blood Pressure 142/91 O2 Sat by Pulse 99 Oximetry Medical Decision Making - Medical Decision Making EKG shows normal sinus rhythm at 72 bpm MN interval 186 QRS is 86 Q-T intervals 408 QTC is 446. Patient's EKG shows no ST segment elevation or depression or T wave abnormalities are noted. At this point time did not want to wait around for any more blood glucose tests. - Lab Data Result diagrams: 08/10/17 15:15 08/10/17 15:15 Lab Results 08/10/17 08/10/17 08/10/17 Range/Units 14:47 15:15 15:15 WBC 7.3 (3.8-10.6) k/uL RBC 4.28 L (4.30-5.90) m/uL Hgb 13.2 (13.0-17.5) gm/dL Hct 40.0 (39.0-53.0) % MCV 93.5 (80.0-100.0) fL MCH 30.9 (25.0-35.0) pg MCHC 33.1 (31.0-37.0) g/dL RDW 13.1 (11.5-15.5) % Plt Count 207 (150-450) k/uL Neutrophils % 65 % Lymphocytes % 26 % Monocytes % 6 % Eosinophils % 2 % Basophils % 0 % Neutrophils # 4.7 (1.3-7.7) k/uL Lymphocytes # 1.9 (1.0-4.8) k/uL Monocytes # 0.4 (0-1.0) k/uL Eosinophils # 0.1 (0-0.7) k/uL Basophils # 0.0 (0-0.2) k/uL Sodium 141 (137-145) mmol/L Potassium 4.2 (3.5-5.1) mmol/L Chloride 106 (98-107) mmol/L Carbon Dioxide 25 (22-30) mmol/L Anion Gap 10 mmol/L BUN 15 (9-20) mg/dL Creatinine 0.85 (0.66-1.25) mg/dL Est GFR (MDRD) Af Amer >60 (>60 ml/min/1.73 sqM) Est GFR (MDRD) Non-Af >60 (>60 ml/min/1.73 sqM) Glucose 101 H (74-99) mg/dL POC Glucose (mg/dL) 102 H (75-99) mg/dL POC Glu Orchid Grower ID Robinson Brandt Calcium 9.2 (8.4-10.2) mg/dL Total Bilirubin 0.4 (0.2-1.3) mg/dL AST 31 (17-59) U/L ALT 38 (21-72) U/L Alkaline Phosphatase 101 (38-126) U/L Total Protein 7.0 (6.3-8.2) g/dL Albumin 4.2 (3.5-5.0) g/dL 08/10/17 Range/Units 15:23 WBC (3.8-10.6) k/uL RBC (4.30-5.90) m/uL Hgb (13.0-17.5) gm/dL Hct (39.0-53.0) % MCV (80.0-100.0) fL MCH (25.0-35.0) pg MCHC (31.0-37.0) g/dL RDW (11.5-15.5) % Plt Count (150-450) k/uL Neutrophils % % Lymphocytes % % Monocytes % % Eosinophils % % Basophils % % Neutrophils # (1.3-7.7) k/uL Lymphocytes # (1.0-4.8) k/uL Monocytes # (0-1.0) k/uL Eosinophils # (0-0.7) k/uL Basophils # (0-0.2) k/uL Sodium (137-145) mmol/L Potassium (3.5-5.1) mmol/L Chloride (98-107) mmol/L Carbon Dioxide (22-30) mmol/L Anion Gap mmol/L BUN (9-20) mg/dL Creatinine (0.66-1.25) mg/dL Est GFR (MDRD) Af Amer (>60 ml/min/1.73 sqM) Est GFR (MDRD) Non-Af (>60 ml/min/1.73 sqM) Glucose (74-99) mg/dL POC Glucose (mg/dL) 110 H (75-99) mg/dL POC Glu Orchid Grower ID Ja Diaz Calcium (8.4-10.2) mg/dL Total Bilirubin (0.2-1.3) mg/dL AST (17-59) U/L ALT (21-72) U/L Alkaline Phosphatase (38-126) U/L Total Protein (6.3-8.2) g/dL Albumin (3.5-5.0) g/dL Disposition Clinical Impression: Hypoglycemia Disposition: HOME SELF-CARE Condition: Good Instructions: Hypoglycemia in a Person with Diabetes (ED) Referrals: Alexy Evangelista MD [Primary Care Provider] - 1-2 days Time of Disposition: 16:07
[2017-08-10 15:41] LABS: ALT 38 U/L (21-72); AST 31 U/L (17-59); Albumin 4.2 g/dL (3.5-5.0); Alkaline Phosphatase 101 U/L (38-126); Anion Gap 10 mmol/L; Blood Urea Nitrogen 15 mg/dL (9-20); Calcium 9.2 mg/dL (8.4-10.2); Carbon Dioxide 25 mmol/L (22-30); Chloride 106 mmol/L (98-107); Glucose 101 mg/dL (74-99); Potassium 4.2 mmol/L (3.5-5.1); Sodium 141 mmol/L (137-145); Total Bilirubin 0.4 mg/dL (0.2-1.3)
[2017-08-10 16:15] VITALS: BP 132/83; PULSE 71; TEMP 97.6
== END 2017-08-10 16:15 | disposition home or self-care (01) ==
LOC: EC 14:43
DX: E11.649 Type 2 diabetes mellitus with hypoglycemia without coma (principal); E78.5 Hyperlipidemia, unspecified; I10 Essential (primary) hypertension; F17.200 Nicotine dependence, unspecified, uncomplicated; Z86.69 Personal history of other diseases of the nervous system and sense organs; Z79.4 Long term (current) use of insulin; Z79.51 Long term (current) use of inhaled steroids; Z79.899 Other long term (current) drug therapy; Z88.1 Allergy status to other antibiotic agents; Z88.5 Allergy status to narcotic agent
CPT/HCPCS: 36415; 80053; 85025; 93005; 99285

== ENCOUNTER 2017-09-14 09:11 | Emergency (ER) | payer OTHER ==
[2017-09-14 09:16] VITALS: TEMP 96.8
[2017-09-14 09:18] LABS: Glucose,Whole Blood 162 mg/dL (75-99)
--- NOTE | 2017-09-14 09:30 | ED ---
General Adult HPI - General Chief complaint: Recheck/Abnormal Lab/Rx Stated complaint: Low Blood Sugar Time Seen by Provider: 09/14/17 09:26 Source: patient, EMS, RN notes reviewed Mode of arrival: EMS Limitations: no limitations - History of Present Illness Initial comments: Patient is a pleasant 52-year-old male presenting to the emergency Department with low blood sugar. Patient was acting abnormal this morning. EMS found low blood sugar and provided glucose. Blood sugar has improved. Patient feels normal at this time and has no complaints. No recent illness. Patient believes he may have taken too much extra Lantus last night. Patient did eat last night. Patient did not eat this morning. Patient states he has had similar problems multiple times previously. Patient is currently symptom-free. - Related Data Home Medications Medication Instructions Recorded Confirmed Lisinopril [Zestril] 5 mg PO DAILY 03/20/14 09/14/17 Atorvastatin [Lipitor] 20 mg PO HS 01/05/16 09/14/17 Insulin Glulisine [Apidra Solostar] 10 unit SQ AC-TID 01/05/16 09/14/17 Albuterol Inhaler [Ventolin Hfa 2 puff INHALATION RT-QID PRN 03/25/17 09/14/17 Inhaler] Mometasone/Formoterol [Dulera 100 2 puff INHALATION RT-BID 03/25/17 09/14/17 Mcg/5 Mcg Inhaler] Ranitidine HCl 150 mg PO DAILY PRN 03/25/17 09/14/17 Fluticasone Nasal [place] [Flonase 1 spray EA NOSTRIL DAILY PRN 04/28/17 09/14/17 Nasal [place]] Gabapentin [Neurontin] 800 mg PO TID 04/28/17 09/14/17 Phenytoin Sodium Extended 100 mg PO TID 04/28/17 09/14/17 [Dilantin] Baclofen 10 mg PO BID 05/25/17 09/14/17 Insulin Glargine [Lantus] 25 unit SQ DAILY 08/10/17 09/14/17 Promethazine/Dextromethorphan 5 ml PO TID PRN 08/10/17 09/14/17 [Phenergan DM Syrup] Previous Rx's Medication Instructions Recorded Ondansetron Odt [Zofran Odt] 4 mg PO Q8HR PRN #12 tab 05/25/17 Allergies Allergy/AdvReac Type Severity Reaction Status Date / Time cephalexin [From Keflex] AdvReac Nausea & Verified 09/14/17 09:47 Vomiting codeine AdvReac Abdominal Verified 09/14/17 09:47 Pain Review of Systems ROS Statement: Those systems with pertinent positive or pertinent negative responses have been documented in the HPI. ROS Other: All systems not noted in ROS Statement are negative. Constitutional: Denies: fever Eyes: Denies: eye pain ENT: Denies: ear pain Respiratory: Denies: cough Cardiovascular: Denies: chest pain Endocrine: Denies: fatigue Gastrointestinal: Denies: abdominal pain Genitourinary: Denies: dysuria Musculoskeletal: Denies: back pain Skin: Denies: rash Neurological: Denies: weakness Past Medical History Past Medical History: Diabetes Mellitus, Hyperlipidemia, Hypertension, Seizure Disorder Additional Past Medical History / Comment(s): migraines, closed head injury History of Any Multi-Drug Resistant Organisms: None Reported Past Surgical History: Orthopedic Surgery Additional Past Surgical History / Comment(s): right leg Past Psychological History: No Psychological Hx Reported Smoking Status: Current every day smoker Past Alcohol Use History: None Reported Past Drug Use History: None Reported General Exam Limitations: no limitations General appearance: alert, in no apparent distress Head exam: Present: atraumatic Eye exam: Present: normal appearance, PERRL ENT exam: Present: normal oropharynx Neck exam: Present: normal inspection Respiratory exam: Present: normal lung sounds bilaterally Cardiovascular Exam: Present: regular rate, normal rhythm GI/Abdominal exam: Present: soft. Absent: tenderness Extremities exam: Present: normal inspection Neurological exam: Present: alert, oriented X3, CN II-XII intact. Absent: motor sensory deficit Expanded Neurological exam: Present: protecting the airway Patient oriented to: Present: person, place, time Speech: Present: fluid speech Motor strength exam: RUE: 5, LUE: 5, RLE: 5, LLE: 5 Eye Response: (4) open spontaneously Motor Response: (6) obeys commands Verbal Response: (5) oriented Psychiatric exam: Present: normal affect, normal mood Skin exam: Present: normal color Course Vital Signs 09/14/17 09:12 Temperature 96.8 F L Pulse Rate 67 Respiratory 18 Rate Blood Pressure 144/68 O2 Sat by Pulse 100 Oximetry Medical Decision Making - Medical Decision Making Blood sugar 113. Patient awake and alert and appropriate and comfortable with discharge. - Lab Data Lab Results 09/14/17 Range/Units 09:16 POC Glucose (mg/dL) 162 H (75-99) mg/dL POC Glu Rink Rat ID Robinson Brandt Disposition Clinical Impression: Hypoglycemia Disposition: HOME SELF-CARE Condition: Stable Instructions: Hypoglycemia in a Person with Diabetes (ED) Additional Instructions: Please check your sugar several times today. Do not miss any meals. Please ensure that the appropriate dose of insulin is being given each time. Please follow-up with your doctor in the next day or 2 for recheck and further monitoring. Return for blood sugar running low, weakness or confusion, worsening symptoms or other concerns. Referrals: Alexy Evangelista MD [Primary Care Provider] - 1-2 days Time of Disposition: 10:28
[2017-09-14 10:28] LABS: Glucose,Whole Blood 133 mg/dL (75-99)
[2017-09-14 10:30] VITALS: BP 140/96; PULSE 78; RESP 16
== END 2017-09-14 10:35 | disposition home or self-care (01) ==
LOC: EC 09:11
DX: E11.649 Type 2 diabetes mellitus with hypoglycemia without coma (principal); E78.5 Hyperlipidemia, unspecified; I10 Essential (primary) hypertension; G40.909 Epilepsy, unspecified, not intractable, without status epilepticus; F17.200 Nicotine dependence, unspecified, uncomplicated; Z79.4 Long term (current) use of insulin; Z79.51 Long term (current) use of inhaled steroids; Z79.899 Other long term (current) drug therapy; Z88.1 Allergy status to other antibiotic agents; Z88.5 Allergy status to narcotic agent
CPT/HCPCS: 36415; 99284

== ENCOUNTER 2018-09-25 14:41 | Emergency (ER) | payer OTHER ==
[2018-09-25 14:49] VITALS: BP 111/76; PULSE 98; RESP 18; TEMP 98.4
--- NOTE | 2018-09-25 16:27 | XR ---
EXAMINATION TYPE: XR hand complete LT DATE OF EXAM: 09/25/2018 CLINICAL HISTORY: pain TECHNIQUE: Frontal, lateral and oblique images of the left hand are obtained. COMPARISON: None. FINDINGS: There is no acute fracture/dislocation evident. The joint spaces appear within normal limi ts. The overlying soft tissue appears unremarkable. IMPRESSION: There is no acute fracture or dislocation. ICD 10 NO FRACTURE, INITIAL EVALUATION
[2018-09-25] MEDS ORDERED: DIPH,PERTUS(ACELL)TETVAC-LF 0.5 ML VIAL IM ONE (16:53)
[2018-09-25] MEDS ORDERED: ONDANSETRON 4 MG TAB PO STA (16:53)
[2018-09-25] MEDS ORDERED: ONDANSETRON ODT 4 MG TAB PO STA (17:24)
--- NOTE | 2018-09-25 17:46 | ED ---
General Adult HPI - General Chief complaint: Wound/Laceration Stated complaint: Lt thumb lac Time Seen by Provider: 09/25/18 16:12 Source: patient, RN notes reviewed, old records reviewed Mode of arrival: ambulatory Limitations: no limitations - History of Present Illness Initial comments: 53-year-old male patient no pertinent past history presents ED after sustaining a laceration to the pad of his right distal thumb. Wound is superficial. Patient denies any other complaints. Patient has full active range of motion of hand. Patient denies any other complaints or injury. Systemic: Pt denies fatigue, myalgia, fever/chills, rash. Pt denies weakness, night sweats, weight loss. Neuro: Pt denies headache, visual disturbances, syncope or pre-syncope. HEENT: Pt denies ocular discharge or irritation, otalgia, rhinorrhea, pharyngitis or notable lymphadenopathy. Cardiopulmonary: Pt denies chest pain, SOB, heart palpitations, dyspnea on exertion. Abdominal/GI: Pt denies abdominal pain, n/v/d. : Pt denies dysuria, burning w/ urination, frequency/urgency. Denies new onset urinary or bowel incontinence. MSK: Pt denies myalgia, loss of strength or function in extremities. Neuro: Pt denies new onset weakness, paresthesias. - Related Data Home Medications Medication Instructions Recorded Confirmed Lisinopril [Zestril] 5 mg PO DAILY 03/20/14 09/14/17 Atorvastatin [Lipitor] 20 mg PO HS 01/05/16 09/14/17 Insulin Glulisine [Apidra Solostar] 10 unit SQ AC-TID 01/05/16 09/14/17 Albuterol Inhaler [Ventolin Hfa 2 puff INHALATION RT-QID PRN 03/25/17 09/14/17 Inhaler] Mometasone/Formoterol [Dulera 100 2 puff INHALATION RT-BID 03/25/17 09/14/17 Mcg/5 Mcg Inhaler] Ranitidine HCl 150 mg PO DAILY PRN 03/25/17 09/14/17 Fluticasone Nasal [place] [Flonase 1 spray EA NOSTRIL DAILY PRN 04/28/17 09/14/17 Nasal [place]] Gabapentin [Neurontin] 800 mg PO TID 04/28/17 09/14/17 Phenytoin Sodium Extended 100 mg PO TID 04/28/17 09/14/17 [Dilantin] Baclofen 10 mg PO BID 05/25/17 09/14/17 Insulin Glargine [Lantus] 25 unit SQ DAILY 08/10/17 09/14/17 Promethazine/Dextromethorphan 5 ml PO TID PRN 08/10/17 09/14/17 [Phenergan DM Syrup] Previous Rx's Medication Instructions Recorded Ondansetron Odt [Zofran Odt] 4 mg PO Q8HR PRN #12 tab 05/25/17 Sulfamethox-Tmp 800-160Mg [Bactrim 1 tab PO Q12HR #20 tab 09/25/18 DS 800-160 mg] Allergies Allergy/AdvReac Type Severity Reaction Status Date / Time cephalexin [From Keflex] AdvReac Nausea & Verified 09/25/18 14:49 Vomiting codeine AdvReac Abdominal Verified 09/25/18 14:49 Pain Review of Systems ROS Statement: Those systems with pertinent positive or pertinent negative responses have been documented in the HPI. ROS Other: All systems not noted in ROS Statement are negative. Past Medical History Past Medical History: Diabetes Mellitus, Hyperlipidemia, Hypertension, Seizure Disorder Additional Past Medical History / Comment(s): migraines, closed head injury History of Any Multi-Drug Resistant Organisms: None Reported Past Surgical History: Orthopedic Surgery Additional Past Surgical History / Comment(s): right leg Past Psychological History: No Psychological Hx Reported Smoking Status: Current every day smoker Past Alcohol Use History: None Reported Past Drug Use History: Marijuana General Exam - General Exam Comments Initial Comments: Constitutional: NAD, AOX3, Pt has pleasant affect. HEENT: NC/AT, trachea midline, neck supple, no lymphadenopathy. Posterior pharynx non erythematous, without exudates. External ears appear normal, without discharge. Mucous membranes moist. Eyes PERRLA, EOM intact. There is no scleral icterus. No pallor noted. Cardiopulmonary: RRR, no murmurs, rubs or gallops, no JVD noted. Lungs CTAB in anterior and posterior bhatia. No peripheral edema. Abdominal exam: Abdomen soft and non-distended. Abdomen non-tender to palpation in all 4 quadrants. Bowel sounds active in LLQ. No hepatosplenomegaly. No ecchymosis Neuro: CN II-XII grossly intact. No nuchal rigidity. MSK: Approximately 2 x 2 centimeter superficial laceration of pad of right thumb. Patient is full active range of motion of thumb flexion and extension intact at the interphalangeal joint, MCP joint. Rotation intact. Wound extensively irrigated with 1 L normal saline. Wound unable to be closed due to dimensions, hemostasis achieved with Gelfoam. No posterior calf tenderness bilaterally, homans sign negative bilaterally. Posterior tibialis and radial pulse +2 bilaterally. Sensation intact in upper and lower extremities. Full active ROM in upper and lower extremities, 5/5 stregnth. Limitations: no limitations Course Vital Signs 09/25/18 14:45 Temperature 98.4 F Pulse Rate 98 Respiratory 18 Rate Blood Pressure 111/76 O2 Sat by Pulse 100 Oximetry Medical Decision Making - Medical Decision Making 53-year-old male patient no pertinent past history presents ED after sustaining a laceration to the pad of his right distal thumb. Wound is superficial. Patient denies any other complaints. Patient has full active range of motion of hand. Patient denies any other complaints or injury patient vital signs stable. Physical exam displayed: Approximately 2 x 2 centimeter superficial laceration of pad of right thumb. Patient is full active range of motion of thumb flexion and extension intact at the interphalangeal joint, MCP joint. Rotation intact. Wound extensively irrigated with 1 L normal saline. Wound unable to be closed due to dimensions, hemostasis achieved with Gelfoam. No foreign bodies noted. Plain film of hand did not display any foreign body, acute fracture. Patient tetanus updated. Patient educated extensively on signs symptoms of infection, patient verbalized understanding. Patient discharged with 10 days of Bactrim. Patient to follow up with primary care provider in 1-2 days for continued evaluation. Patient to return to ER if condition worsens in any way or if signs or symptoms of infection develop. Case discussed with Dr. Nelson. Disposition Clinical Impression: Laceration Disposition: HOME SELF-CARE Condition: Stable Additional Instructions: Patient to adhere to previously discussed treatment plan and will take medication(s) as directed. Patient to follow up with PCP in 1-2 days. Patient to return to ED if symptoms do not improve. Please monitor for signs and symptoms of infection including: redness, warmth, drainage, discharge. Please return to ED if these signs or symptoms occur, new signs or symptoms develop or if condition worsens in anyway. Prescriptions: Sulfamethox-Tmp 800-160Mg [Bactrim DS 800-160 mg] 1 tab PO Q12HR #20 tab Is patient prescribed a controlled substance at d/c from ED?: No Referrals: Alexy Evangelista MD [Primary Care Provider] - 1-2 days Time of Disposition: 17:46
== END 2018-09-25 17:57 | disposition home or self-care (01) ==
LOC: EC 14:41
DX: S61.012A Laceration without foreign body of left thumb without damage to nail, initial encounter (principal); E11.9 Type 2 diabetes mellitus without complications; E78.5 Hyperlipidemia, unspecified; I10 Essential (primary) hypertension; G43.909 Migraine, unspecified, not intractable, without status migrainosus; F17.200 Nicotine dependence, unspecified, uncomplicated; Z88.1 Allergy status to other antibiotic agents; Z88.5 Allergy status to narcotic agent; Z79.4 Long term (current) use of insulin; Z79.51 Long term (current) use of inhaled steroids; Z79.899 Other long term (current) drug therapy; Z86.69 Personal history of other diseases of the nervous system and sense organs; Z23 Encounter for immunization; W45.8XXA Other foreign body or object entering through skin, initial encounter; Y92.69 Other specified industrial and construction area as the place of occurrence of the external cause
CPT/HCPCS: 90471; 90715; 99283

== ENCOUNTER 2018-11-17 18:38 | Inpatient (IN) | payer OTHER ==
[2018-11-17] MEDS ORDERED: KETOROLAC 30 MG/ML 1 ML VIAL IVP STA (19:53)
[2018-11-17] MEDS ORDERED: AMPICILLIN-SULBACTAM 3 GM in SODIUM CHLORIDE 0.9% 100 ML IVPB STA (19:54)
--- NOTE | 2018-11-17 20:28 | ED ---
Animal Bite HPI - General Source: patient Mode of arrival: ambulatory Limitations: no limitations <Hailey Shaffer - Last Filed: 11/18/18 00:55> <Golria Mendoza - Last Filed: 11/18/18 01:59> - General Chief Complaint: Animal Bite Stated Complaint: Cat bite on hand Time Seen by Provider: 11/17/18 18:47 - History of Present Illness Initial Comments: 53-year-old male patient presents to the emergency department today for evaluation of redness and swelling to the right hand. Patient states 3 days ago he broke up a fight between his cats and both cats bit and clawed his right hand. Patient states he did see his primary care physician was started on antibiotics but was concerned about side effects of he did not continue them. Patient states that over the last 24 hours the hand is become much more swollen, painful, and red. Denies any drainage from the wounds. States his cats are up to date on immunizations. Patient's last tetanus vaccine was one month ago. He denies any fevers or chills. Patient denies any recent rash, shortness breath, chest pain, abdominal pain, nausea, vomiting, diarrhea, constipation, back pain, numbness, tingling, dizziness, weakness, hematuria, dysuria, urinary urgency, urinary frequency, headache, visual changes, or any other complaints. Patient does report history of diabetes. (Hailey Shaffer) - Related Data Home Medications Medication Instructions Recorded Confirmed Lisinopril [Zestril] 5 mg PO DAILY 03/20/14 11/17/18 Atorvastatin [Lipitor] 20 mg PO HS 01/05/16 11/17/18 Insulin Glulisine [Apidra Solostar] 15 unit SQ AC-TID 01/05/16 11/17/18 Albuterol Inhaler [Ventolin Hfa 2 puff INHALATION RT-QID PRN 03/25/17 11/17/18 Inhaler] Ranitidine HCl 150 mg PO DAILY PRN 03/25/17 11/17/18 Fluticasone Nasal [place] [Flonase 1 spray EA NOSTRIL DAILY PRN 04/28/17 11/17/18 Nasal [place]] Gabapentin [Neurontin] 800 mg PO TID 04/28/17 11/17/18 Phenytoin Sodium Extended 100 mg PO TID 04/28/17 11/17/18 [Dilantin] Baclofen 10 mg PO BID 05/25/17 11/17/18 Insulin Glargine [Lantus] 10 unit SQ BID 08/10/17 11/17/18 Promethazine/Dextromethorphan 5 ml PO TID PRN 08/10/17 11/17/18 [Phenergan DM Syrup] Albuterol Nebulized [Ventolin 2.5 mg INHALATION RT-TID PRN 11/17/18 11/17/18 Nebulized] Ciprofloxacin HCl [Cipro] 750 mg PO BID 11/17/18 11/17/18 Ibuprofen [Motrin] 600 mg PO Q8HR PRN 11/17/18 11/17/18 Umeclidinium [place] [Incruse 1 puff INHALATION RT-DAILY 11/17/18 11/17/18 Ellipta] Allergies Allergy/AdvReac Type Severity Reaction Status Date / Time cephalexin [From Keflex] AdvReac Nausea & Verified 11/17/18 19:09 Vomiting codeine AdvReac Abdominal Verified 11/17/18 19:09 Pain Review of Systems ROS Other: All systems not noted in ROS Statement are negative. <Hailey Shaffer - Last Filed: 11/18/18 00:55> ROS Other: All systems not noted in ROS Statement are negative. <Gloria Mendoza - Last Filed: 11/18/18 01:59> ROS Statement: Those systems with pertinent positive or pertinent negative responses have been documented in the HPI. Past Medical History Past Medical History: Diabetes Mellitus, Hyperlipidemia, Hypertension, Seizure Disorder Additional Past Medical History / Comment(s): migraines, closed head injury History of Any Multi-Drug Resistant Organisms: None Reported Past Surgical History: Orthopedic Surgery Additional Past Surgical History / Comment(s): right leg Past Psychological History: No Psychological Hx Reported Smoking Status: Current every day smoker Past Alcohol Use History: None Reported Past Drug Use History: Marijuana <Hailey Shaffer - Last Filed: 11/18/18 00:55> General Exam Limitations: no limitations General appearance: alert, in no apparent distress, other (Social well- developed, well-nourished male male patient in no acute distress. Vital signs upon presentation are temperature 98.1F, pulse 106, respirations 20, blood pressure 121/83, pulse ox 100% on room air.) Eye exam: Present: normal appearance, PERRL, EOMI. Absent: scleral icterus, conjunctival injection, periorbital swelling ENT exam: Present: normal exam, normal oropharynx, mucous membranes moist Respiratory exam: Present: normal lung sounds bilaterally. Absent: respiratory distress, wheezes, rales, rhonchi, stridor Cardiovascular Exam: Present: regular rate, normal rhythm, normal heart sounds. Absent: systolic murmur, diastolic murmur, rubs, gallop, clicks Extremities exam: Present: full ROM, tenderness (Right dorsal hand), normal capillary refill, other (Erythema, swelling noted to the right dorsal hand and wrist, cellulitis extends up to the midforearm. No streaking noted.). Absent: normal inspection, pedal edema, joint swelling, calf tenderness Neurological exam: Present: alert, oriented X3, CN II-XII intact Psychiatric exam: Present: normal affect, normal mood Skin exam: Present: warm, dry, intact, normal color. Absent: rash <Hailey Shaffer - Last Filed: 11/18/18 00:55> Course Vital Signs 11/17/18 18:43 Temperature 98.1 F Pulse Rate 106 H Respiratory 20 Rate Blood Pressure 121/83 O2 Sat by Pulse 100 Oximetry Medical Decision Making - Lab Data Result diagrams: 11/17/18 20:05 11/17/18 20:05 - Radiology Data Radiology results: report reviewed, image reviewed <Hailey Shaffer M - Last Filed: 11/18/18 00:55> - Lab Data Result diagrams: 11/17/18 20:05 11/17/18 20:05 <Gloria Mendoza - Last Filed: 11/18/18 01:59> - Medical Decision Making 53-year-old male patient presents to emergency department today for evaluation of right hand swelling and redness after Bite injury on Tuesday. Physical examination did reveal erythema and swelling noted over the dorsal aspect of the right hand with the erythema extending up to about mid forearm. Patient had full range of motion of the fingers no finger tenderness was noted decreasing likelihood for flexor tenosynovitis. Labs reviewed and revealed normal white blood cell count. Patient is diabetic. Patient was started on antibiotics but decided to stop taking them due to side effects. It is felt he is unreliable to complete medication dosing so we'll admit to the hospital for IV antibiotics. Labs will be repeated in the morning. Patient is agreeable with this plan. (Hailey Shaffer) I was available for consultation in the emergency department. The history and physical exam were done by the midlevel provider. I was consulted for this patient's care. I reviewed the case with the midlevel provider and based on their presentation of the patient, I agree with the assessment, medical decision making and plan of care as documented. Chart was dictated using [employer] dictation software. Attempts were made to correct any dictation errors however some typographical errors may persist. (Gloria Mendoza) - Lab Data Lab Results 11/17/18 11/17/18 Range/Units 20:05 20:05 WBC 7.9 (3.8-10.6) k/uL RBC 3.97 L (4.30-5.90) m/uL Hgb 12.5 L (13.0-17.5) gm/dL Hct 37.1 L (39.0-53.0) % MCV 93.5 (80.0-100.0) fL MCH 31.6 (25.0-35.0) pg MCHC 33.8 (31.0-37.0) g/dL RDW 12.5 (11.5-15.5) % Plt Count 173 (150-450) k/uL Neutrophils % 74 % Lymphocytes % 15 % Monocytes % 7 % Eosinophils % 1 % Basophils % 0 % Neutrophils # 5.8 (1.3-7.7) k/uL Lymphocytes # 1.2 (1.0-4.8) k/uL Monocytes # 0.6 (0-1.0) k/uL Eosinophils # 0.1 (0-0.7) k/uL Basophils # 0.0 (0-0.2) k/uL Sodium 133 L (137-145) mmol/L Potassium 4.1 (3.5-5.1) mmol/L Chloride 102 (98-107) mmol/L Carbon Dioxide 23 (22-30) mmol/L Anion Gap 8 mmol/L BUN 22 H (9-20) mg/dL Creatinine 0.93 (0.66-1.25) mg/dL Est GFR (CKD-EPI)AfAm >90 (>60 ml/min/1.73 sqM) Est GFR (CKD-EPI)NonAf >90 (>60 ml/min/1.73 sqM) Glucose 360 H (74-99) mg/dL Calcium 9.3 (8.4-10.2) mg/dL Total Bilirubin 0.9 (0.2-1.3) mg/dL AST 20 (17-59) U/L ALT 35 (21-72) U/L Alkaline Phosphatase 139 H (38-126) U/L Total Protein 6.6 (6.3-8.2) g/dL Albumin 3.8 (3.5-5.0) g/dL - Radiology Data 3 views of the right hand are obtained. Report was reviewed in its entirety. Impression by Dr. Nguyen shows suboptimal due to incomplete extension of the phalanges. There is no acute fracture dislocation evident in the right hand. Mild to moderate narrowing and spurring at the PIP and DIP joints are felt present. Mild to moderate diffuse soft tissue swelling is seen without suspicious radiodense foreign body clearly identified. (Hailey Shaffer) Disposition Decision to Admit Reason: Admit from EC Decision Date: 11/17/18 Decision Time: 21:26 <Hailey Shaffer - Last Filed: 11/18/18 00:55> <Gloria Mendoza - Last Filed: 11/18/18 01:59> Clinical Impression: Cat bite, Cellulitis Disposition: ADMITTED IP TO THIS [facility] Condition: Serious
[2018-11-17 20:31] LABS: Basophils % (A) 0 %; Eosinophils # (A) 0.1 k/uL (0-0.7); Eosinophils % (A) 1 %; HCT 37.1 % (39.0-53.0); HGB 12.5 gm/dL (13.0-17.5); Lymphocytes # (A) 1.2 k/uL (1.0-4.8); Lymphocytes % (A) 15 %; MCH 31.6 pg (25.0-35.0); MCHC 33.8 g/dL (31.0-37.0); MCV 93.5 fL (80.0-100.0); Mean Platelet Volume 7.6; Monocytes # (A) 0.6 k/uL (0-1.0); Monocytes % (A) 7 %; Neutrophils # (A) 5.8 k/uL (1.3-7.7); Neutrophils % (A) 74 %; Platelet Count 173 k/uL (150-450); RBC 3.97 m/uL (4.30-5.90); RDW 12.5 % (11.5-15.5); WBC 7.9 k/uL (3.8-10.6)
[2018-11-17 20:45] LABS: ALT 35 U/L (21-72); AST 20 U/L (17-59); Albumin 3.8 g/dL (3.5-5.0); Alkaline Phosphatase 139 U/L (38-126); Anion Gap 8 mmol/L; Blood Urea Nitrogen 22 mg/dL (9-20); Calcium 9.3 mg/dL (8.4-10.2); Carbon Dioxide 23 mmol/L (22-30); Chloride 102 mmol/L (98-107); Glucose 360 mg/dL (74-99); Potassium 4.1 mmol/L (3.5-5.1); Sodium 133 mmol/L (137-145); Total Bilirubin 0.9 mg/dL (0.2-1.3); Total Protein 6.6 g/dL (6.3-8.2)
[2018-11-17] MEDS ORDERED: INSULIN ASPART (NovoLOG) 100 UNIT/ML VIAL SQ ONE (21:12)
[2018-11-17] MEDS ORDERED: NALOXONE 0.4 MG/ML 1 ML VIAL IV PRN (21:23)
--- NOTE | 2018-11-17 21:25 | XR ---
EXAMINATION TYPE: XR hand complete RT DATE OF EXAM: 11/17/2018 CLINICAL HISTORY: Cat bite injury with pain rule out foreign body TECHNIQUE: Frontal, lateral and oblique images of the right hand are obtained. COMPARISON: None. FINDINGS: And noted suboptimal due to incomplete extension of the phalanges There is no acute fractur e/dislocation evident in the right hand. Mild/moderate narrowing and spurring throughout the PIP and DIP joints are felt present. [id number] diffuse soft tissue swelling is seen without suspicious radiodense foreign body clearly identified. IMPRESSION: As above.
[2018-11-17] MEDS ORDERED: ALBUTEROL NEBULIZED 2.5 MG/3 ML INHALATION PRN ×2 (21:26)
[2018-11-17] MEDS ORDERED: IBUPROFEN 600 MG TAB PO PRN (21:26)
[2018-11-17] MEDS ORDERED: NON-FORMULARY DRUG (Promethazine/Dextromethorphan [Phenergan Dm Syrup] 5 ML) PO PRN (21:26)
[2018-11-17] MEDS: SODIUM CHLORIDE 0.9% 1,000 ML IV SCH (22:53)
[2018-11-17 23:16] LABS: Glucose,Whole Blood 277 mg/dL (75-99)
[2018-11-17] MEDS: PHENYTOIN SODIUM EXTENDED 100 MG CAP PO SCH (23:46)
[2018-11-17] MEDS: GABAPENTIN 400 MG CAP PO SCH (23:46)
[2018-11-17 23:58] VITALS: BMI 25.2
[2018-11-18] MEDS: HYDROcodone/APAP 5-325MG 1 EACH TAB PO PRN ×3 (00:04→20:32)
[2018-11-18] MEDS: AMPICILLIN-SULBACTAM 3 GM in SODIUM CHLORIDE 0.9% 100 ML IVPB SCH ×3 (04:19→20:32)
[2018-11-18 06:10] LABS: Basophils % (A) 0 %; Eosinophils # (A) 0.2 k/uL (0-0.7); Eosinophils % (A) 2 %; HGB 12.3 gm/dL (13.0-17.5); Lymphocytes # (A) 2.2 k/uL (1.0-4.8); Lymphocytes % (A) 29 %; MCH 32.2 pg (25.0-35.0); MCHC 34.2 g/dL (31.0-37.0); MCV 94.1 fL (80.0-100.0); Mean Platelet Volume 7.7; Monocytes # (A) 0.5 k/uL (0-1.0); Monocytes % (A) 6 %; Neutrophils # (A) 4.5 k/uL (1.3-7.7); Neutrophils % (A) 59 %; Platelet Count 160 k/uL (150-450); RBC 3.82 m/uL (4.30-5.90); RDW 12.5 % (11.5-15.5); WBC 7.6 k/uL (3.8-10.6)
[2018-11-18 06:56] LABS: Glucose,Whole Blood 342 mg/dL (75-99)
[2018-11-18] MEDS: IPRATROPIUM 0.5 MG/2.5 ML NEBU INHALATION SCH ×4 (07:03→19:38)
[2018-11-18] MEDS: BACLOFEN 10 MG TAB PO SCH ×2 (07:17→20:32)
[2018-11-18] MEDS: GABAPENTIN 400 MG CAP PO SCH ×3 (07:17→20:32)
[2018-11-18] MEDS: LISINOPRIL 5 MG TAB PO SCH (07:17)
[2018-11-18] MEDS: PHENYTOIN SODIUM EXTENDED 100 MG CAP PO SCH ×3 (07:18→20:32)
[2018-11-18] MEDS: INSULIN ASPART (NovoLOG) 100 UNIT/ML VIAL SQ SCH ×7 (07:21→20:33)
[2018-11-18] MEDS: INSULIN DETEMIR (LEVEMIR) 100 UNIT/ML SYR SQ SCH ×2 (08:51→20:33)
[2018-11-18] MEDS ORDERED: FAMOTIDINE 20 MG TAB PO PRN (09:00)
[2018-11-18] MEDS ORDERED: FLUTICASONE 50MCG/SPRAY NASAL 16GM EA NOSTRIL PRN (09:00)
[2018-11-18 11:46] LABS: Glucose,Whole Blood 205 mg/dL (75-99)
--- NOTE | 2018-11-18 12:49 | P.HPIM ---
History of Present Illness This is a pleasant 53 years old male with past medical history of diabetes mellitus, hypertension, hyperlipidemia, diabetes mellitus, seizure disorder. Epigastric because of animal bite. And last Tuesday when he got bit by his Cat s. We next day he starts having right hand swelling. He went to his primary care doctor who prescribed him antibiotics however patient stopped taking his antibiotics for concerns of side effects. This time he presents with worsening swelling in his right hand, with limitation of movement and pain from his proximal forearm and distally. On admission, Vitas looks stable. Patient is afebrile. Labs reviewed and they look unremarkable. And x-ray showing no acute fracture, mild to moderate diff use soft tissue swelling Review of Systems CONSTITUTIONAL: No fever, no malaise, no fatigue. HEENT: No recent visual problems or hearing problems. Denied any sore throat. CARDIOVASCULAR: No orthopnea, PND, no palpitations, no syncope. PULMONARY: No shortness of breath, no cough, no hemoptysis. GASTROINTESTINAL: No diarrhea, no nausea, no vomiting, no abdominal pain. Normoactive bowel sounds. NEUROLOGICAL: No headaches, no weakness, no numbness. HEMATOLOGICAL: Denies any bleeding or petechiae. GENITOURINARY: Denies any burning micturition, frequency, or urgency. MUSCULOSKELETAL/RHEUMATOLOGICAL: Denies any joint pain, swelling, or any muscle pain. ENDOCRINE: Denies any polyuria or polydipsia. Past Medical History Past Medical History: Diabetes Mellitus, Hyperlipidemia, Hypertension, Seizure Disorder Additional Past Medical History / Comment(s): migraines, closed head injury History of Any Multi-Drug Resistant Organisms: None Reported Past Surgical History: Orthopedic Surgery Additional Past Surgical History / Comment(s): right leg Past Psychological History: No Psychological Hx Reported Smoking Status: Current every day smoker Past Alcohol Use History: None Reported Past Drug Use History: Marijuana Medications and Allergies Home Medications Medication Instructions Recorded Confirmed Type Lisinopril [Zestril] 5 mg PO DAILY 03/20/14 11/17/18 History Atorvastatin [Lipitor] 20 mg PO HS 01/05/16 11/17/18 History Insulin Glulisine [Apidra Solostar] 15 unit SQ AC-TID 01/05/16 11/17/18 History Albuterol Inhaler [Ventolin Hfa 2 puff INHALATION RT-QID PRN 03/25/17 11/17/18 History Inhaler] Ranitidine HCl 150 mg PO DAILY PRN 03/25/17 11/17/18 History Fluticasone Nasal [place] [Flonase 1 spray EA NOSTRIL DAILY PRN 04/28/17 11/17/18 History Nasal [place]] Gabapentin [Neurontin] 800 mg PO TID 04/28/17 11/17/18 History Phenytoin Sodium Extended 100 mg PO TID 04/28/17 11/17/18 History [Dilantin] Baclofen 10 mg PO BID 05/25/17 11/17/18 History Insulin Glargine [Lantus] 10 unit SQ BID 08/10/17 11/17/18 History Promethazine/Dextromethorphan 5 ml PO TID PRN 08/10/17 11/17/18 History [Phenergan DM Syrup] Albuterol Nebulized [Ventolin 2.5 mg INHALATION RT-TID PRN 11/17/18 11/17/18 History Nebulized] Ciprofloxacin HCl [Cipro] 750 mg PO BID 11/17/18 11/17/18 History Ibuprofen [Motrin] 600 mg PO Q8HR PRN 11/17/18 11/17/18 History Umeclidinium [place] [Incruse 1 puff INHALATION RT-DAILY 11/17/18 11/17/18 History Ellipta] Allergies Allergy/AdvReac Type Severity Reaction Status Date / Time cephalexin [From Keflex] AdvReac Nausea & Verified 11/17/18 19:09 Vomiting codeine AdvReac Abdominal Verified 11/17/18 19:09 Pain Physical Exam Vitals: Vital Signs Temp Pulse Pulse Resp BP BP Pulse Ox 11/18/18 11:12 76 11/18/18 11:04 70 11/18/18 08:00 16 11/18/18 07:15 72 11/18/18 07:06 76 11/18/18 05:00 97.0 F L 76 14 136/80 99 11/17/18 23:13 97.9 F 88 16 119/86 99 11/17/18 18:43 98.1 F 106 H 20 121/83 100 Intake and Output 11/17/18 11/18/18 11/18/18 22:59 06:59 14:59 Other: # Voids 1 Weight 71.078 kg GENERAL: The patient is alert and oriented x3, not in any acute distress. Well developed, well nourished. HEENT: Pupils are round and equally reacting to light. EOMI. No scleral icterus. No conjunctival pallor. Normocephalic, atraumatic. No pharyngeal erythema. No thyromegaly. CARDIOVASCULAR: S1 and S2 present. No murmurs, rubs, or gallops. PULMONARY: Chest is clear to auscultation, no wheezing or crackles. ABDOMEN: Soft, nontender, nondistended, normoactive bowel sounds. No palpable organomegaly. MUSCULOSKELETAL: No joint swelling or deformity. EXTREMITIES: No cyanosis, clubbing, or pedal edema. NEUROLOGICAL: Gross neurological examination did not reveal any focal deficits. SKIN: No rashes. Results CBC & Chem 7: 11/18/18 05:37 11/17/18 20:05 Labs: Abnormal Lab Results - Last 24 Hours (Table) 11/17/18 11/17/18 11/17/18 Range/Units 20:05 20:05 23:13 RBC 3.97 L (4.30-5.90) m/uL Hgb 12.5 L (13.0-17.5) gm/dL Hct 37.1 L (39.0-53.0) % Sodium 133 L (137-145) mmol/L BUN 22 H (9-20) mg/dL Glucose 360 H (74-99) mg/dL POC Glucose (mg/dL) 277 H (75-99) mg/dL Alkaline Phosphatase 139 H (38-126) U/L 11/18/18 11/18/18 11/18/18 Range/Units 05:37 06:54 11:40 RBC 3.82 L (4.30-5.90) m/uL Hgb 12.3 L (13.0-17.5) gm/dL Hct 36.0 L (39.0-53.0) % Sodium (137-145) mmol/L BUN (9-20) mg/dL Glucose (74-99) mg/dL POC Glucose (mg/dL) 342 H 205 H (75-99) mg/dL Alkaline Phosphatase (38-126) U/L Thrombosis Risk Factor Assmnt - Choose All That Apply Any of the Below Risk Factors Present?: Yes Each Factor Represents 1 point: Age 41-60 years, Obesity (BMI >25) Other Risk Factors: No Thrombosis Risk Factor Assessment Total Risk Factor Score: 2 Thrombosis Risk Factor Assessment Level: Low Risk Assessment and Plan Assessment: Right hand swelling, tenderness and erythema, some small scratching gaitan on the dorsum of the hand. Minimal swelling on the forearm. Secondary to cat bite Nonadherence to treatment Diabetes mellitus Essential hypertension Hyperlipidemia History of seizure History of migraine Plan: This is a pleasant 53 years old male who presents with right hand swelling and impossible infection. Continue with antibiotics and adjusted as per infectious disease recommendation. Also will call orthopedic consult and we'll check Doppler of the upper extremity Labs and medication were reviewed.. Continue same treatment. Continue with symptomatic treatment. Resume home medication. Monitor lytes and vitals. DVT and GI prophylaxis. Further recommendations of the clinical course of the patient DVT prophylaxis: Subcutaneous heparin GI Prophylaxis: Pepcid PT/OT: Prognosis is guarded
[2018-11-18] MEDS ORDERED: SUMAtriptan SUCCINATE 50 MG TAB PO STA (14:40)
--- NOTE | 2018-11-18 15:01 | US ---
EXAMINATION TYPE: US venous doppler duplex UE RT DATE OF EXAM: 11/18/2018 COMPARISON: NONE CLINICAL HISTORY: right hand animal bite, edema. right swollen hand SIDE PERFORMED: Right Right Arm: Negative for DVT Enlarged node noted in right axilla, measures 2.4 cm with 0.4 cm cortex. IMPRESSION: No evidence of deep venous thrombosis in the right arm.
[2018-11-18] MEDS ORDERED: SUMAtriptan SUCCINATE 50 MG TAB PO PRN (15:39)
[2018-11-18] MEDS: MULTIVITAMINS, THERA 1 EACH TAB PO SCH (16:15)
--- NOTE | 2018-11-18 16:49 | P.CONS ---
History of Present Illness - Reason for Consult Consult date: 11/18/18 - Chief Complaint cat-bite - History of Present Illness 53 -year-old gentleman who has a history of a closed head injury and works at [employer] relates that they have 5 cats in the home. He relates they're all vaccinated against rabies in routine vaccines. The patient relates that to the cats were fighting he try to separate them. His right hand didn't subtle arm were between the 2 animals when he appears to have had multiple scratches and bites onto the hand and distal arm. He relates now 5 days after the event that he started to have increasing amounts of swelling to the hand and lower part of the arm. There is some mild erythematous ascending the arm. He started to feel poorly with what appears to be some low-grade fever no vinh chills or rigors. because he was having worsening center presented to the emergency center in counseling is admitted because cellulitis to the right hand. He was seen in the outpatient setting it appears that he was placed on ciprofloxacin and with that he was concerned about the many side effects including it appears to be psychiatric in musculoskeletal side effects. He constantly was not taking the antibiotic any further when his hand started to worsen. He now relates since coming to Hospital he's feeling just slightly better but not significantly better as of yet. He does not recall prior injury to the hand. Review of Systems 53 -year-old male complaining of right hand pain and swelling HEENT:Denies headache or acute visual change. Denies sinus or mouth discomforts. Denies neck stiffness or pain. Denies significant oral cavity pain. Denies difficulty on swallowing. Lungs: Denies significant shortness of breath, cough, sputum production, or hemoptysis. Cardiovascular: Denies significant shortness of breath, chest pain, chest wall pain, orthopnea, dyspnea on exertion, syncope Gastrointestinal:Denies nausea, vomiting, diarrhea, constipation, hematemesis, melena, hematochezia. No no significant change of bowel habit noticed. Musculoskeletal: as per the HPI hand pain and swelling Skin: Denies new rash or lesions. No new ulcers or wounds are related.. Neuro: Denies headache or visual change. Denies any new onset weakness or difficulty with ambulation. Denies falls or seizures. Psychiatric:Denies anxiety or depression. Endocrine: Denies significant fatigue, denies significant weight loss or weight gain. Past Medical History Past Medical History: Diabetes Mellitus, Hyperlipidemia, Hypertension, Seizure Disorder Additional Past Medical History / Comment(s): Closed Head Injury, migraines, History of Any Multi-Drug Resistant Organisms: None Reported Past Surgical History: Orthopedic Surgery Additional Past Surgical History / Comment(s): right leg Past Psychological History: No Psychological Hx Reported Additional Psychological History / Comment(s): single. Lives with family. No travel Smoking Status: Current every day smoker Past Alcohol Use History: None Reported Past Drug Use History: Marijuana Medications and Allergies Home Medications and Allergies Comment(s): Current Medications Hydrocodone Bitart/Acetaminophen ([place] 5-325) 1 each PO Q4HR PRN PRN Reason: Pain Last Admin: 11/18/18 08:16 Dose: 1 each Documented by: Albuterol Sulfate (Ventolin Nebulized) 2.5 mg INHALATION RT-QID PRN PRN Reason: Shortness Of Breath Albuterol Sulfate (Ventolin Nebulized) 2.5 mg INHALATION RT-TID PRN PRN Reason: Shortness Of Breath Atorvastatin Calcium (Lipitor) 20 mg PO HS [facility] Baclofen (Lioresal) 10 mg PO BID [facility] Last Admin: 11/18/18 07:17 Dose: 10 mg Documented by: Famotidine (Pepcid) 20 mg PO DAILY PRN PRN Reason: Heartburn Fluticasone Propionate (Flonase Nasal [place]) 1 spray EA NOSTRIL DAILY PRN PRN Reason: Allergy Symptoms Gabapentin (Neurontin) 800 mg PO TID [facility] Last Admin: 11/18/18 15:07 Dose: 800 mg Documented by: Sodium Chloride (Saline 0.9%) 1,000 mls @ 50 mls/hr IV .Q20H [facility] Last Admin: 11/17/18 22:53 Dose: 50 mls/hr Documented by: Ampicillin Sodium/Sulbactam (Sodium 3 gm/ Sodium Chloride) 100 mls @ 200 mls/hr IVPB Q8H [facility] Last Admin: 11/18/18 11:21 Dose: 200 mls/hr Documented by: Insulin Aspart (Novolog) 0 unit SQ ACHS [facility]; Protocol Last Admin: 11/18/18 12:50 Dose: 3 unit Documented by: Insulin Aspart (Novolog) 15 unit SQ AC-TID [facility] Last Admin: 11/18/18 12:50 Dose: 15 unit Documented by: Insulin Detemir (Levemir) 10 unit SQ BID [facility] Last Admin: 11/18/18 08:51 Dose: 10 unit Documented by: Ipratropium [place] (Atrovent Nebulized) 0.5 mg INHALATION RT-QID [facility] Last Admin: 11/18/18 15:35 Dose: 0.5 mg Documented by: Ketorolac Tromethamine (Toradol) 30 mg IVP Q6HR [facility] Stop: 11/22/18 15:31 Lisinopril (Zestril) 5 mg PO DAILY [facility] Last Admin: 11/18/18 07:17 Dose: 5 mg Documented by: Multivitamins (Theragran) 1 each PO DAILY@1200 [facility] Last Admin: 11/18/18 16:15 Dose: 1 each Documented by: Naloxone HCl (Narcan) 0.2 mg IV Q2M PRN PRN Reason: Opioid Reversal Phenytoin Sodium (Dilantin) 100 mg PO TID [facility] Last Admin: 11/18/18 15:07 Dose: 100 mg Documented by: Silver Sulfadiazine (Silvadene Cream) 1 applic TOPICAL DAILY [facility] Last Admin: 11/18/18 16:15 Dose: 1 applic Documented by: Sumatriptan Succinate (Imitrex) 50 mg PO DAILY PRN PRN Reason: Headache Home Medications Medication Instructions Recorded Confirmed Type Lisinopril [Zestril] 5 mg PO DAILY 03/20/14 11/17/18 History Atorvastatin [Lipitor] 20 mg PO HS 01/05/16 11/17/18 History Insulin Glulisine [Apidra Solostar] 15 unit SQ AC-TID 01/05/16 11/17/18 History Albuterol Inhaler [Ventolin Hfa 2 puff INHALATION RT-QID PRN 03/25/17 11/17/18 History Inhaler] Ranitidine HCl 150 mg PO DAILY PRN 03/25/17 11/17/18 History Fluticasone Nasal [place] [Flonase 1 spray EA NOSTRIL DAILY PRN 04/28/17 11/17/18 History Nasal [place]] Gabapentin [Neurontin] 800 mg PO TID 04/28/17 11/17/18 History Phenytoin Sodium Extended 100 mg PO TID 04/28/17 11/17/18 History [Dilantin] Baclofen 10 mg PO BID 05/25/17 11/17/18 History Insulin Glargine [Lantus] 10 unit SQ BID 08/10/17 11/17/18 History Promethazine/Dextromethorphan 5 ml PO TID PRN 08/10/17 11/17/18 History [Phenergan DM Syrup] Albuterol Nebulized [Ventolin 2.5 mg INHALATION RT-TID PRN 11/17/18 11/17/18 History Nebulized] Ciprofloxacin HCl [Cipro] 750 mg PO BID 11/17/18 11/17/18 History Ibuprofen [Motrin] 600 mg PO Q8HR PRN 11/17/18 11/17/18 History Umeclidinium [place] [Incruse 1 puff INHALATION RT-DAILY 11/17/18 11/17/18 History Ellipta] SUMAtriptan SUCCINATE [Imitrex] 50 mg PO DIRECTED 11/18/18 11/18/18 History Allergies Allergy/AdvReac Type Severity Reaction Status Date / Time cephalexin [From Keflex] AdvReac Nausea & Verified 11/17/18 19:09 Vomiting codeine AdvReac Abdominal Verified 11/17/18 19:09 Pain Physical Exam Vitals: Vital Signs Temp Pulse Pulse Resp BP BP Pulse Ox 11/18/18 15:47 70 11/18/18 15:33 70 11/18/18 15:11 16 11/18/18 13:33 97.4 F L 70 16 106/66 98 11/18/18 11:12 76 11/18/18 11:04 70 11/18/18 08:00 16 11/18/18 07:15 72 11/18/18 07:06 76 11/18/18 05:00 97.0 F L 76 14 136/80 99 11/17/18 23:13 97.9 F 88 16 119/86 99 11/17/18 18:43 98.1 F 106 H 20 121/83 100 Intake and Output 11/18/18 11/18/18 11/18/18 06:59 14:59 22:59 Other: # Voids 1 3 53-year-old male distress HEENT: Anicteric conjunctiva are pink and moist nasal mucosa grossly intact without significant lesions, there is no thrush.very poor dentition fractured carious teeth Neck: The neck is supple without significant lymphadenopathy or thyromegaly. Lungs: Good bilateral air entry without significant crackles or wheezing. There is no significant bronchial sounds. There is no egophony or dullness. Heart: Regular rate and rhythm with an audible S1-S2, no S3 no S4. There is no significant murmur click or rub, PMI was nondisplaced. Abdomen: Positive bowel sounds soft and nontender without palpable masses or organomegaly. There was no guarding or rebound. Extremities: The upper extremities are muscular, evidence of significant swelling and erythema to the right hand to proximal to the wrist. Left arm without acute abnormality No splinter hemorrhages were noted. The lower extr emities are free from significant edema. The peripheral pulses were 2+ and symmetric. Neuro: Awake alert oriented to person place and time. There are no acute new gross focal sensory motor deficits. Results CBC & Chem 7: 11/18/18 05:37 11/17/18 20:05 Labs: Abnormal Lab Results - Last 24 Hours (Table) 11/17/18 11/17/18 11/17/18 Range/Units 20:05 20:05 23:13 RBC 3.97 L (4.30-5.90) m/uL Hgb 12.5 L (13.0-17.5) gm/dL Hct 37.1 L (39.0-53.0) % Sodium 133 L (137-145) mmol/L BUN 22 H (9-20) mg/dL Glucose 360 H (74-99) mg/dL POC Glucose (mg/dL) 277 H (75-99) mg/dL Alkaline Phosphatase 139 H (38-126) U/L 11/18/18 11/18/18 11/18/18 Range/Units 05:37 06:54 11:40 RBC 3.82 L (4.30-5.90) m/uL Hgb 12.3 L (13.0-17.5) gm/dL Hct 36.0 L (39.0-53.0) % Sodium (137-145) mmol/L BUN (9-20) mg/dL Glucose (74-99) mg/dL POC Glucose (mg/dL) 342 H 205 H (75-99) mg/dL Alkaline Phosphatase (38-126) U/L Laboratory Results WBC 7.6 k/uL (3.8-10.6) 11/18/18 05:37 RBC 3.82 m/uL (4.30-5.90) L 11/18/18 05:37 Hgb 12.3 gm/dL (13.0-17.5) L 11/18/18 05:37 Hct 36.0 % (39.0-53.0) L 11/18/18 05:37 MCV 94.1 fL (80.0-100.0) 11/18/18 05:37 MCH 32.2 pg (25.0-35.0) 11/18/18 05:37 MCHC 34.2 g/dL (31.0-37.0) 11/18/18 05:37 RDW 12.5 % (11.5-15.5) 11/18/18 05:37 Plt Count 160 k/uL (150-450) 11/18/18 05:37 Neutrophils % 59 % 11/18/18 05:37 Lymphocytes % 29 % 11/18/18 05:37 Monocytes % 6 % 11/18/18 05:37 Eosinophils % 2 % 11/18/18 05:37 Basophils % 0 % 11/18/18 05:37 Neutrophils # 4.5 k/uL (1.3-7.7) 11/18/18 05:37 Lymphocytes # 2.2 k/uL (1.0-4.8) 11/18/18 05:37 Monocytes # 0.5 k/uL (0-1.0) 11/18/18 05:37 Eosinophils # 0.2 k/uL (0-0.7) 11/18/18 05:37 Basophils # 0.0 k/uL (0-0.2) 11/18/18 05:37 Sodium 133 mmol/L (137-145) L 11/17/18 20:05 Potassium 4.1 mmol/L (3.5-5.1) 11/17/18 20:05 Chloride 102 mmol/L (98-107) 11/17/18 20:05 Carbon Dioxide 23 mmol/L (22-30) 11/17/18 20:05 Anion Gap 8 mmol/L 11/17/18 20:05 BUN 22 mg/dL (9-20) H 11/17/18 20:05 Creatinine 0.93 mg/dL (0.66-1.25) 11/17/18 20:05 Est GFR (CKD-EPI)AfAm >90 (>60 ml/min/1.73 sqM) 11/17/18 20:05 Est GFR (CKD-EPI)NonAf >90 (>60 ml/min/1.73 sqM) 11/17/18 20:05 Glucose 360 mg/dL (74-99) H 11/17/18 20:05 POC Glucose (mg/dL) 205 mg/dL (75-99) H 11/18/18 11:40 POC Glu Receiving Lead ID Janell Forman 11/18/18 11:40 Calcium 9.3 mg/dL (8.4-10.2) 11/17/18 20:05 Total Bilirubin 0.9 mg/dL (0.2-1.3) 11/17/18 20:05 AST 20 U/L (17-59) 11/17/18 20:05 ALT 35 U/L (21-72) 11/17/18 20:05 Alkaline Phosphatase 139 U/L (38-126) H 11/17/18 20:05 Total Protein 6.6 g/dL (6.3-8.2) 11/17/18 20:05 Albumin 3.8 g/dL (3.5-5.0) 11/17/18 20:05 Assessment and Plan (1) Cat bite Narrative/Plan: 53-year-old male who has multiple cats at the home that they stay are vaccinated for rabies. The patient relates that his right hand lower arm became injured when he tried to separate 2 cats. Multiple scratches and bites occurred. He had some swelling and discomfort and eventually went to his primary care physician and was given ciprofloxacin. However given the many potential side effects from the medication and the fact first dose did not make him feel well he stopped taking it. They can continue to swell become more painful was able to make a fist and had redness ascending the arm and constantly presented to the emergency center. The patient's Keflex ALLERGY is noted to be nausea and constantly Unasyn has been started these are starting to have in improvement. Silvadene with rolled gauze and ASIS being requested as well as a couple of pillows to elevate the hand while he is resting to bring down the edema. Tetanus vaccine was Ar[place] updated. Multivitamin is added. Smoking cessation is discussed. Toradol is added for pain control. Current Visit: Yes Status: Acute Code(s): W55.01XA - BITTEN BY CAT, INITIAL ENCOUNTER SNOMED Code(s): 114598373 (2) Cellulitis Current Visit: Yes Status: Acute Code(s): L03.90 - CELLULITIS, UNSPECIFIED SNOMED Code(s): 701488453
[2018-11-18 16:52] LABS: Glucose,Whole Blood 62 mg/dL (75-99)
[2018-11-18 17:05] LABS: Glucose,Whole Blood 70 mg/dL (75-99)
[2018-11-18] MEDS: SODIUM CHLORIDE 0.9% 1,000 ML IV SCH (17:33)
[2018-11-18] MEDS: KETOROLAC 30 MG/ML 1 ML VIAL IVP SCH ×2 (17:33→23:44)
[2018-11-18 20:19] LABS: Glucose,Whole Blood 416 mg/dL (75-99)
[2018-11-18] MEDS: ATORVASTATIN 20 MG TAB PO SCH (20:32)
[2018-11-18 23:16] LABS: Hemoglobin A1C 11.1 % (4.0-6.0)
[2018-11-19 01:51] LABS: Glucose,Whole Blood 164 mg/dL (75-99)
[2018-11-19 05:01] LABS: Glucose,Whole Blood 145 mg/dL (75-99)
[2018-11-19] MEDS: AMPICILLIN-SULBACTAM 3 GM in SODIUM CHLORIDE 0.9% 100 ML IVPB SCH ×3 (05:13→20:35)
[2018-11-19] MEDS: KETOROLAC 30 MG/ML 1 ML VIAL IVP SCH ×4 (05:13→23:02)
[2018-11-19] MEDS: IPRATROPIUM 0.5 MG/2.5 ML NEBU INHALATION SCH ×4 (06:58→19:23)
[2018-11-19 07:16] LABS: Glucose,Whole Blood 131 mg/dL (75-99)
[2018-11-19] MEDS: INSULIN ASPART (NovoLOG) 100 UNIT/ML VIAL SQ SCH ×7 (07:24→21:27)
[2018-11-19] MEDS: LISINOPRIL 5 MG TAB PO SCH (07:25)
[2018-11-19] MEDS: GABAPENTIN 400 MG CAP PO SCH ×3 (07:25→20:34)
[2018-11-19] MEDS: BACLOFEN 10 MG TAB PO SCH ×2 (07:25→20:35)
[2018-11-19] MEDS: PHENYTOIN SODIUM EXTENDED 100 MG CAP PO SCH ×3 (07:26→20:34)
[2018-11-19] MEDS: INSULIN DETEMIR (LEVEMIR) 100 UNIT/ML SYR SQ SCH ×2 (07:54→21:31)
[2018-11-19 08:24] LABS: Basophils % (A) 0 %; Eosinophils # (A) 0.2 k/uL (0-0.7); Eosinophils % (A) 3 %; HCT 34.8 % (39.0-53.0); HGB 11.5 gm/dL (13.0-17.5); Lymphocytes % (A) 34 %; MCH 31.3 pg (25.0-35.0); MCHC 33.2 g/dL (31.0-37.0); MCV 94.4 fL (80.0-100.0); Mean Platelet Volume 7.4; Monocytes # (A) 0.3 k/uL (0-1.0); Monocytes % (A) 6 %; Neutrophils # (A) 3.3 k/uL (1.3-7.7); Neutrophils % (A) 56 %; Platelet Count 184 k/uL (150-450); RBC 3.68 m/uL (4.30-5.90); RDW 12.6 % (11.5-15.5)
[2018-11-19 08:32] LABS: Anion Gap 7 mmol/L; Blood Urea Nitrogen 19 mg/dL (9-20); Calcium 8.3 mg/dL (8.4-10.2); Carbon Dioxide 25 mmol/L (22-30); Chloride 105 mmol/L (98-107); Glucose 132 mg/dL (74-99); Potassium 4.5 mmol/L (3.5-5.1); Sodium 137 mmol/L (137-145)
--- NOTE | 2018-11-19 11:07 | P.CNOR ---
History of Present Illness - HPI Consult date: 11/19/18 History of present illness: This is a 53-year-old gentleman with history of closed head injury. He states that he has 5 cath in his home and broke up a fight between 2 of the cats last week and sustaining multiple small scratches and bites. He developed redness and swelling to the hand. He was placed on Cipro by his primary care physician. The patient states that he was really all the potential side effects and decided he did not want to take the medication. His redness and swelling progressed in the right hand. He presented for evaluation in the emergency department. He is admitted to internal medicine for IV antibiotics and we are consulted for orthopedic evaluation. He is currently on IV Unasyn. Past Medical History Past Medical History: Diabetes Mellitus, Hyperlipidemia, Hypertension, Seizure Disorder Additional Past Medical History / Comment(s): Closed Head Injury, migraines, History of Any Multi-Drug Resistant Organisms: None Reported Past Surgical History: Orthopedic Surgery Additional Past Surgical History / Comment(s): right leg Past Psychological History: No Psychological Hx Reported Additional Psychological History / Comment(s): single. Lives with family. No travel Smoking Status: Current every day smoker Past Alcohol Use History: None Reported Past Drug Use History: Marijuana Medications and Allergies Home Medications Medication Instructions Recorded Confirmed Type Lisinopril [Zestril] 5 mg PO DAILY 03/20/14 11/17/18 History Atorvastatin [Lipitor] 20 mg PO HS 01/05/16 11/17/18 History Insulin Glulisine [Apidra Solostar] 15 unit SQ AC-TID 01/05/16 11/17/18 History Albuterol Inhaler [Ventolin Hfa 2 puff INHALATION RT-QID PRN 03/25/17 11/17/18 History Inhaler] Ranitidine HCl 150 mg PO DAILY PRN 03/25/17 11/17/18 History Fluticasone Nasal [place] [Flonase 1 spray EA NOSTRIL DAILY PRN 04/28/17 11/17/18 History Nasal [place]] Gabapentin [Neurontin] 800 mg PO TID 04/28/17 11/17/18 History Phenytoin Sodium Extended 100 mg PO TID 04/28/17 11/17/18 History [Dilantin] Baclofen 10 mg PO BID 05/25/17 11/17/18 History Insulin Glargine [Lantus] 10 unit SQ BID 08/10/17 11/17/18 History Promethazine/Dextromethorphan 5 ml PO TID PRN 08/10/17 11/17/18 History [Phenergan DM Syrup] Albuterol Nebulized [Ventolin 2.5 mg INHALATION RT-TID PRN 11/17/18 11/17/18 History Nebulized] Ciprofloxacin HCl [Cipro] 750 mg PO BID 11/17/18 11/17/18 History Ibuprofen [Motrin] 600 mg PO Q8HR PRN 11/17/18 11/17/18 History Umeclidinium [place] [Incruse 1 puff INHALATION RT-DAILY 11/17/18 11/17/18 History Ellipta] SUMAtriptan SUCCINATE [Imitrex] 50 mg PO DIRECTED 11/18/18 11/18/18 History Allergies Allergy/AdvReac Type Severity Reaction Status Date / Time cephalexin [From Keflex] AdvReac Nausea & Verified 11/17/18 19:09 Vomiting codeine AdvReac Abdominal Verified 11/17/18 19:09 Pain Physical Examination This is a pleasant 53-year-old gentleman in no acute distress. He is alert and oriented 3. Exam of the right upper extremity reveals that his swelling and erythema is resolving. There is evidence of all puncture wounds about the dorsum of the hand. His finger motion is improving. He can almost make a full fist. He can fully extend the fingers. There is no tenderness about the palmar aspect of the hand. Capillary refills less than 3 seconds. Neurovascular status to the lower extremity is intact. Results X-rays of the right hand reveal no bony abnormality or foreign body. Soft tissue swelling noted on x-ray. - Labs Labs: Abnormal Lab Results - Last 24 Hours (Table) 11/18/18 11/18/18 11/18/18 Range/Units 05:37 11:40 16:47 RBC (4.30-5.90) m/uL Hgb (13.0-17.5) gm/dL Hct (39.0-53.0) % Glucose (74-99) mg/dL POC Glucose (mg/dL) 205 H 62 L (75-99) mg/dL Hemoglobin A1c 11.1 H (4.0-6.0) % Calcium (8.4-10.2) mg/dL 11/18/18 11/18/18 11/19/18 Range/Units 17:03 20:16 01:49 RBC (4.30-5.90) m/uL Hgb (13.0-17.5) gm/dL Hct (39.0-53.0) % Glucose (74-99) mg/dL POC Glucose (mg/dL) 70 L 416 H 164 H (75-99) mg/dL Hemoglobin A1c (4.0-6.0) % Calcium (8.4-10.2) mg/dL 11/19/18 11/19/18 11/19/18 Range/Units 04:47 07:04 07:51 RBC 3.68 L (4.30-5.90) m/uL Hgb 11.5 L (13.0-17.5) gm/dL Hct 34.8 L (39.0-53.0) % Glucose (74-99) mg/dL POC Glucose (mg/dL) 145 H 131 H (75-99) mg/dL Hemoglobin A1c (4.0-6.0) % Calcium (8.4-10.2) mg/dL 11/19/18 Range/Units 07:51 RBC (4.30-5.90) m/uL Hgb (13.0-17.5) gm/dL Hct (39.0-53.0) % Glucose 132 H (74-99) mg/dL POC Glucose (mg/dL) (75-99) mg/dL Hemoglobin A1c (4.0-6.0) % Calcium 8.3 L (8.4-10.2) mg/dL Microbiology - Last 24 Hours (Table) 11/17/18 20:05 Blood Culture - Preliminary Blood No Growth after 24 hours H & H 11/17/18 11/18/18 11/19/18 Range/Units 20:05 05:37 07:51 Hgb 12.5 L 12.3 L 11.5 L (13.0-17.5) gm/dL Hct 37.1 L 36.0 L 34.8 L (39.0-53.0) % Result Diagrams: 11/19/18 07:51 11/19/18 07:51 Assessment and Plan (1) Cat bite Current Visit: Yes Status: Acute Code(s): W55.01XA - BITTEN BY CAT, INITIAL ENCOUNTER SNOMED Code(s): 451630919 (2) Cellulitis Current Visit: Yes Status: Acute Code(s): L03.90 - CELLULITIS, UNSPECIFIED SNOMED Code(s): 269576965 Plan: The clinical and x-ray findings are discussed the patient. I have reviewed the case with Dr. Barrientos who agrees that there is no surgical indication at this time. He is to continue with the Silvadene cream and compressive dressing to the right hand. Home oral antibiotics per infectious disease. He may follow-up in our office as needed.
[2018-11-19] MEDS: MULTIVITAMINS, THERA 1 EACH TAB PO SCH (11:08)
[2018-11-19 11:39] LABS: Glucose,Whole Blood 115 mg/dL (75-99)
--- NOTE | 2018-11-19 14:03 | P.PN ---
Subjective Progress Note Date: 11/19/18 53 -year-old gentleman who has a history of a closed head injury and works at [employer] relates that they have 5 cats in the home. He relates they're all vaccinated against rabies in routine vaccines. The patient relates that to the cats were fighting he try to separate them. His right hand didn't subtle arm were between the 2 animals when he appears to have had multiple scratches and bites onto the hand and distal arm. He relates now 5 days after the event that he started to have increasing amounts of swelling to the hand and lower part of the arm. There is some mild erythematous ascending the arm. He started to feel poorly with what appears to be some low-grade fever no vinh chills or rigors. because he was having worsening center presented to the emergency center in counseling is admitted because cellulitis to the right hand. He was seen in the outpatient setting it appears that he was placed on ciprofloxacin and with that he was concerned about the many side effects including it appears to be psychiatric in musculoskeletal side effects. He constantly was not taking the antibiotic any further when his hand started to worsen. He now relates since coming to Hospital he's feeling just slightly better but not significantly better as of yet. He does not recall prior injury to the hand. 11/19/2018 patient started to feel little bit better today. The patient has swelling to the hand is improved. Debility using it is improved. Still has swelling erythema and discomfort at this time. Is denying fevers or chills. Objective - Vital Signs Vital signs: Vital Signs Temp 97.4 F L 11/19/18 05:00 Pulse 72 11/19/18 11:04 Resp 18 11/19/18 08:00 BP 125/73 11/19/18 05:00 Pulse Ox 98 11/19/18 05:00 Intake & Output 11/18/18 11/19/18 11/19/18 18:59 06:59 18:59 Intake Total 200 Balance 200 Weight 71.078 kg Intake: Oral 200 Other: Voiding Method Toilet # Voids 3 1 - Exam 53-year-old male distress HEENT: Anicteric conjunctiva are pink and moist nasal mucosa grossly intact without significant lesions, there is no thrush.very poor dentition fractured carious teeth Neck: The neck is supple without significant lymphadenopathy or thyromegaly. Lungs: Good bilateral air entry without significant crackles or wheezing. There is no significant bronchial sounds. There is no egophony or dullness. Heart: Regular rate and rhythm with an audible S1-S2, no S3 no S4. There is no significant murmur click or rub, PMI was nondisplaced. Abdomen: Positive bowel sounds soft and nontender without palpable masses or organomegaly. There was no guarding or rebound. Extremities: The upper extremities are muscular, evidence of improvement of the swelling and erythema to the right hand to proximal to the wrist. Left arm without acute abnormality No splinter hemorrhages were noted. The lower extremities are free from significant edema. The peripheral pulses were 2+ and symmetric. Neuro: Awake alert oriented to person place and time. There are no acute new gross focal sensory motor deficits. - Labs CBC & Chem 7: 11/19/18 07:51 11/19/18 07:51 Labs: Abnormal Lab Results - Last 24 Hours (Table) 11/18/18 11/18/18 11/18/18 Range/Units 05:37 16:47 17:03 RBC (4.30-5.90) m/uL Hgb (13.0-17.5) gm/dL Hct (39.0-53.0) % Glucose (74-99) mg/dL POC Glucose (mg/dL) 62 L 70 L (75-99) mg/dL Hemoglobin A1c 11.1 H (4.0-6.0) % Calcium (8.4-10.2) mg/dL 11/18/18 11/19/18 11/19/18 Range/Units 20:16 01:49 04:47 RBC (4.30-5.90) m/uL Hgb (13.0-17.5) gm/dL Hct (39.0-53.0) % Glucose (74-99) mg/dL POC Glucose (mg/dL) 416 H 164 H 145 H (75-99) mg/dL Hemoglobin A1c (4.0-6.0) % Calcium (8.4-10.2) mg/dL 11/19/18 11/19/18 11/19/18 Range/Units 07:04 07:51 07:51 RBC 3.68 L (4.30-5.90) m/uL Hgb 11.5 L (13.0-17.5) gm/dL Hct 34.8 L (39.0-53.0) % Glucose 132 H (74-99) mg/dL POC Glucose (mg/dL) 131 H (75-99) mg/dL Hemoglobin A1c (4.0-6.0) % Calcium 8.3 L (8.4-10.2) mg/dL 11/19/18 Range/Units 11:36 RBC (4.30-5.90) m/uL Hgb (13.0-17.5) gm/dL Hct (39.0-53.0) % Glucose (74-99) mg/dL POC Glucose (mg/dL) 115 H (75-99) mg/dL Hemoglobin A1c (4.0-6.0) % Calcium (8.4-10.2) mg/dL Microbiology - Last 24 Hours (Table) 11/17/18 20:05 Blood Culture - Preliminary Blood No Growth after 24 hours Laboratory Results WBC 6.0 k/uL (3.8-10.6) 11/19/18 07:51 RBC 3.68 m/uL (4.30-5.90) L 11/19/18 07:51 Hgb 11.5 gm/dL (13.0-17.5) L 11/19/18 07:51 Hct 34.8 % (39.0-53.0) L 11/19/18 07:51 MCV 94.4 fL (80.0-100.0) 11/19/18 07:51 MCH 31.3 pg (25.0-35.0) 11/19/18 07:51 MCHC 33.2 g/dL (31.0-37.0) 11/19/18 07:51 RDW 12.6 % (11.5-15.5) 11/19/18 07:51 Plt Count 184 k/uL (150-450) 11/19/18 07:51 Neutrophils % 56 % 11/19/18 07:51 Lymphocytes % 34 % 11/19/18 07:51 Monocytes % 6 % 11/19/18 07:51 Eosinophils % 3 % 11/19/18 07:51 Basophils % 0 % 11/19/18 07:51 Neutrophils # 3.3 k/uL (1.3-7.7) 11/19/18 07:51 Lymphocytes # 2.0 k/uL (1.0-4.8) 11/19/18 07:51 Monocytes # 0.3 k/uL (0-1.0) 11/19/18 07:51 Eosinophils # 0.2 k/uL (0-0.7) 11/19/18 07:51 Basophils # 0.0 k/uL (0-0.2) 11/19/18 07:51 Sodium 137 mmol/L (137-145) 11/19/18 07:51 Potassium 4.5 mmol/L (3.5-5.1) 11/19/18 07:51 Chloride 105 mmol/L (98-107) 11/19/18 07:51 Carbon Dioxide 25 mmol/L (22-30) 11/19/18 07:51 Anion Gap 7 mmol/L 11/19/18 07:51 BUN 19 mg/dL (9-20) 11/19/18 07:51 Creatinine 0.77 mg/dL (0.66-1.25) 11/19/18 07:51 Est GFR (CKD-EPI)AfAm >90 (>60 ml/min/1.73 sqM) 11/19/18 07:51 Est GFR (CKD-EPI)NonAf >90 (>60 ml/min/1.73 sqM) 11/19/18 07:51 Glucose 132 mg/dL (74-99) H 11/19/18 07:51 POC Glucose (mg/dL) 115 mg/dL (75-99) H 11/19/18 11:36 POC Glu Senior Electrical Project Manager ROCKY Lilly Roche 11/19/18 11:[address] Glu mg/dL 272 11/18/18 05:37 Hemoglobin A1c 11.1 % (4.0-6.0) H 11/18/18 05:37 Calcium 8.3 mg/dL (8.4-10.2) L 11/19/18 07:51 Total Bilirubin 0.9 mg/dL (0.2-1.3) 11/17/18 20:05 AST 20 U/L (17-59) 11/17/18 20:05 ALT 35 U/L (21-72) 11/17/18 20:05 Alkaline Phosphatase 139 U/L (38-126) H 11/17/18 20:05 Total Protein 6.6 g/dL (6.3-8.2) 11/17/18 20:05 Albumin 3.8 g/dL (3.5-5.0) 11/17/18 20:05 Microbiology 11/17/18 20:05 Blood Blood Culture - Preliminary No Growth after 24 hours Assessment and Plan (1) Cat bite Narrative/Plan: 53-year-old male who has multiple cats at the home that they stay are vaccinated for rabies. The patient relates that his right hand lower arm became injured when he tried to separate 2 cats. Multiple scratches and bites occurred. He had some swelling and discomfort and eventually went to his primary care ankita hardy and was given ciprofloxacin. However given the many potential side effects from the medication and the fact first dose did not make him feel well he stopped taking it. They can continue to swell become more painful was able to make a fist and had redness ascending the arm and constantly presented to the emergency center. The patient's Keflex ALLERGY is noted to be nausea and constantly Unasyn has been started these are starting to have in improvement. Silvadene with rolled gauze and ASIS being requested as well as a couple of pillows to elevate the hand while he is resting to bring down the edema. Tetanus vaccine was already updated. Multivitamin is added. Smoking cessation is discussed. Toradol is added for pain control. 11/19/2018 patient has improved significantly in the last day. Is still some erythema and swelling tenderness and decreased use of the hand. Portioning is showing good improvement at this time. We'll continue with current Silvadene wrap elevation and anti-inflammatories. Antibiotic therapies with Unasyn with adequate response at this time. Current Visit: Yes Status: Acute Code(s): W55.01XA - BITTEN BY CAT, INITIAL ENCOUNTER SNOMED Code(s): 740544185 (2) Cellulitis Current Visit: Yes Status: Acute Code(s): L03.90 - CELLULITIS, UNSPECIFIED SNOMED Code(s): 441680813
--- NOTE | 2018-11-19 14:16 | P.PN ---
Subjective This is a pleasant 53 years old male with past medical history of diabetes mellitus, hypertension, hyperlipidemia, diabetes mellitus, seizure disorder. Epigastric because of animal bite. And last Tuesday when he got bit by his Cats. We next day he starts having right hand swelling. He went to his primary care doctor who prescribed him antibiotics however patient stopped taking his antibiotics for concerns of side effects. This time he presents with worsening swelling in his right hand, with limitation of movement and pain from his proxi mal forearm and distally. On admission, Vitas looks stable. Patient is afebrile. Labs reviewed and they look unremarkable. And x-ray showing no acute fracture, mild to moderate diffuse soft tissue swelling 11/19/2018 Patient today feels better, he says that he can move his finger better than yes terday and the swelling is coming down. His hand is wrapped with Abdelrahman bandage. His been having no fever. No leukocytosis and creatinine 0.7. Sugar is controlled. He remains on Unasyn and infectious disease team are following. Orthopedic consult is appreciated as well, no need for surgical intervention currently. Objective - Vital Signs Vital signs: Vital Signs Temp 97.4 F L 11/19/18 05:00 Pulse 72 11/19/18 11:04 Resp 18 11/19/18 08:00 BP 125/73 11/19/18 05:00 Pulse Ox 98 11/19/18 05:00 Intake & Output 11/18/18 11/19/18 11/19/18 18:59 06:59 18:59 Intake Total 200 Balance 200 Weight 71.078 kg Intake: Oral 200 Other: Voiding Method Toilet # Voids 3 1 - Exam GENERAL: The patient is alert and oriented x3, not in any acute distress. Well developed, well nourished. HEENT: Pupils are round and equally reacting to light. EOMI. No scleral icterus. No conjunctival pallor. Normocephalic, atraumatic. No pharyngeal erythema. No thyromegaly. CARDIOVASCULAR: S1 and S2 present. No murmurs, rubs, or gallops. PULMONARY: Chest is clear to auscultation, no wheezing or crackles. ABDOMEN: Soft, nontender, nondistended, normoactive bowel sounds. No palpable organomegaly. MUSCULOSKELETAL: No joint swelling or deformity. Right hand exam, right hand is swollen, redness are improving, he is able to only flex his fingers more . He has sensation. He has multiple stretch gaitan on the dorsum of the hand. The swelling extends up to the proximal part of his forearm to a lesser degree . improving EXTREMITIES: No cyanosis, clubbing, or pedal edema. NEUROLOGICAL: Gross neurological examination did not reveal any focal deficits. SKIN: No rashes. - Labs CBC & Chem 7: 11/19/18 07:51 11/19/18 07:51 Labs: Abnormal Lab Results - Last 24 Hours (Table) 11/18/18 11/18/18 11/18/18 Range/Units 05:37 16:47 17:03 RBC (4.30-5.90) m/uL Hgb (13.0-17.5) gm/dL Hct (39.0-53.0) % Glucose (74-99) mg/dL POC Glucose (mg/dL) 62 L 70 L (75-99) mg/dL Hemoglobin A1c 11.1 H (4.0-6.0) % Calcium (8.4-10.2) mg/dL 11/18/18 11/19/18 11/19/18 Range/Units 20:16 01:49 04:47 RBC (4.30-5.90) m/uL Hgb (13.0-17.5) gm/dL Hct (39.0-53.0) % Glucose (74-99) mg/dL POC Glucose (mg/dL) 416 H 164 H 145 H (75-99) mg/dL Hemoglobin A1c (4.0-6.0) % Calcium (8.4-10.2) mg/dL 11/19/18 11/19/18 11/19/18 Range/Units 07:04 07:51 07:51 RBC 3.68 L (4.30-5.90) m/uL Hgb 11.5 L (13.0-17.5) gm/dL Hct 34.8 L (39.0-53.0) % Glucose 132 H (74-99) mg/dL POC Glucose (mg/dL) 131 H (75-99) mg/dL Hemoglobin A1c (4.0-6.0) % Calcium 8.3 L (8.4-10.2) mg/dL 11/19/18 Range/Units 11:36 RBC (4.30-5.90) m/uL Hgb (13.0-17.5) gm/dL Hct (39.0-53.0) % Glucose (74-99) mg/dL POC Glucose (mg/dL) 115 H (75-99) mg/dL Hemoglobin A1c (4.0-6.0) % Calcium (8.4-10.2) mg/dL Microbiology - Last 24 Hours (Table) 11/17/18 20:05 Blood Culture - Preliminary Blood No Growth after 24 hours Assessment and Plan Assessment: Right hand swelling, tenderness and erythema, some small scratching gaitan on the dorsum of the hand. Minimal swelling on the forearm. Secondary to cat bite Nonadherence to treatment Diabetes mellitus Essential hypertension Hyperlipidemia History of seizure History of migraine Plan: This is a pleasant 53 years old male who presents with right hand swelling and impossible infection. Continue with antibiotics and adjusted as per infectious disease recommendation. Appreciated orthopedic consult, no need for surgical intervention and Doppler of the upper extremity is negative for DVT Labs and medication were reviewed.. Continue same treatment. Continue with symptomatic treatment. Resume home medication. Monitor lytes and vitals. DVT and GI prophylaxis. Further recommendations of the clinical course of the patient DVT prophylaxis: Subcutaneous heparin GI Prophylaxis: Pepcid PT/OT: Prognosis is guarded
[2018-11-19 17:18] LABS: Glucose,Whole Blood 190 mg/dL (75-99)
[2018-11-19 20:16] LABS: Glucose,Whole Blood 66 mg/dL (75-99)
[2018-11-19 20:16] LABS: Glucose,Whole Blood 60 mg/dL (75-99)
[2018-11-19] MEDS: ATORVASTATIN 20 MG TAB PO SCH (20:34)
[2018-11-19 20:50] LABS: Glucose,Whole Blood 89 mg/dL (75-99)
[2018-11-19 21:25] LABS: Glucose,Whole Blood 129 mg/dL (75-99)
[2018-11-20 02:54] LABS: Glucose,Whole Blood 134 mg/dL (75-99)
[2018-11-20] MEDS: AMPICILLIN-SULBACTAM 3 GM in SODIUM CHLORIDE 0.9% 100 ML IVPB SCH ×3 (05:23→20:55)
[2018-11-20] MEDS: KETOROLAC 30 MG/ML 1 ML VIAL IVP SCH ×4 (05:23→23:27)
[2018-11-20] MEDS: IPRATROPIUM 0.5 MG/2.5 ML NEBU INHALATION SCH ×4 (07:05→18:52)
[2018-11-20 07:21] LABS: Glucose,Whole Blood 122 mg/dL (75-99)
[2018-11-20] MEDS: INSULIN ASPART (NovoLOG) 100 UNIT/ML VIAL SQ SCH ×7 (07:30→22:14)
[2018-11-20] MEDS: MULTIVITAMINS, THERA 1 EACH TAB PO SCH (08:03)
[2018-11-20] MEDS: BACLOFEN 10 MG TAB PO SCH ×2 (08:03→20:56)
[2018-11-20] MEDS: LISINOPRIL 5 MG TAB PO SCH (08:03)
[2018-11-20] MEDS: INSULIN DETEMIR (LEVEMIR) 100 UNIT/ML SYR SQ SCH ×2 (08:03→23:27)
[2018-11-20] MEDS: PHENYTOIN SODIUM EXTENDED 100 MG CAP PO SCH ×3 (08:04→20:56)
[2018-11-20] MEDS: HYDROcodone/APAP 5-325MG 1 EACH TAB PO PRN (08:08)
[2018-11-20] MEDS: GABAPENTIN 400 MG CAP PO SCH ×3 (08:08→20:56)
--- NOTE | 2018-11-20 09:05 | P.PN ---
Subjective Progress Note Date: 11/20/18 This is a 53-year-old male who is admitted for cellulitis from a cat bite of the right hand. Patient states that he has noticed a lot of improvement in pain and swelling. Patient states that he is now able to move the fingers of the right hand and he could not do this before. Patient denies any new symptoms or complaints. Objective - Vital Signs Vital signs: Vital Signs Temp 97.7 F 11/20/18 05:10 Pulse 80 11/20/18 07:16 Resp 16 11/20/18 05:10 BP 137/75 11/20/18 05:10 Pulse Ox 98 11/20/18 05:10 Intake & Output 11/19/18 11/20/18 11/20/18 18:59 06:59 18:59 Intake Total 320 Output Total 1500 Balance -1180 Weight 71.078 kg Intake: Oral 320 Output: Urine 1500 Other: Voiding Method Toilet # Voids 4 2 - Exam On exam there is mild swelling to the dorsal aspect of the right hand. Patient has good range of motion of the fingers of the right hand without pain or difficulty. Sensation is intact. There is minimal erythema. Patient has full range of motion of the right wrist. Neurovascular status and circulatory status are intact. - Labs CBC & Chem 7: 11/19/18 07:51 11/19/18 07:51 Labs: Abnormal Lab Results - Last 24 Hours (Table) 11/19/18 11/19/18 11/19/18 Range/Units 11:36 17:12 20:10 POC Glucose (mg/dL) 115 H 190 H 66 L (75-99) mg/dL 11/19/18 11/19/18 11/20/18 Range/Units 20:13 21:22 02:52 POC Glucose (mg/dL) 60 L 129 H 134 H (75-99) mg/dL 11/20/18 Range/Units 07:10 POC Glucose (mg/dL) 122 H (75-99) mg/dL Microbiology - Last 24 Hours (Table) 11/17/18 20:05 Blood Culture - Preliminary Blood No Growth after 48 hours Assessment and Plan (1) Cat bite Current Visit: Yes Status: Acute Code(s): W55.01XA - BITTEN BY CAT, INITIAL ENCOUNTER SNOMED Code(s): 134470906 (2) Cellulitis Current Visit: Yes Status: Acute Code(s): L03.90 - CELLULITIS, UNSPECIFIED SNOMED Code(s): 012266858 Plan: #1.Continue IV antibiotics per infectious disease. #2. Warm compresses to the right hand as needed. #3. Elevate the right hand for swelling. #4. No surgical intervention planned. Will continue to follow.
[2018-11-20 09:58] LABS: Basophils % (A) 0 %; Eosinophils # (A) 0.2 k/uL (0-0.7); Eosinophils % (A) 2 %; HCT 36.3 % (39.0-53.0); HGB 12.1 gm/dL (13.0-17.5); Lymphocytes # (A) 1.7 k/uL (1.0-4.8); Lymphocytes % (A) 23 %; MCH 32.2 pg (25.0-35.0); MCHC 33.4 g/dL (31.0-37.0); MCV 96.6 fL (80.0-100.0); Mean Platelet Volume 7.6; Monocytes # (A) 0.6 k/uL (0-1.0); Monocytes % (A) 8 %; Neutrophils # (A) 4.9 k/uL (1.3-7.7); Neutrophils % (A) 65 %; Platelet Count 227 k/uL (150-450); RBC 3.75 m/uL (4.30-5.90); RDW 13.2 % (11.5-15.5); WBC 7.5 k/uL (3.8-10.6)
[2018-11-20 10:13] LABS: Anion Gap 7 mmol/L; Blood Urea Nitrogen 14 mg/dL (9-20); Calcium 8.5 mg/dL (8.4-10.2); Carbon Dioxide 23 mmol/L (22-30); Chloride 107 mmol/L (98-107); Glucose 130 mg/dL (74-99); Potassium 4.4 mmol/L (3.5-5.1); Sodium 137 mmol/L (137-145)
[2018-11-20 12:14] LABS: Glucose,Whole Blood 156 mg/dL (75-99)
[2018-11-20 15:39] VITALS: RESP 18
[2018-11-20 16:41] LABS: Glucose,Whole Blood 154 mg/dL (75-99)
--- NOTE | 2018-11-20 20:47 | P.PN ---
Subjective This is a pleasant 53 years old male with past medical history of diabetes mellitus, hypertension, hyperlipidemia, diabetes mellitus, seizure disorder. Epigastric because of animal bite. And last Tuesday when he got bit by his Cats. We next day he starts having right hand swelling. He went to his primary care doctor who prescribed him antibiotics however patient stopped taking his antibiotics for concerns of side effects. This time he presents with worsening swelling in his right hand, with limitation of movement and pain from his proxi mal forearm and distally. On admission, Vitas looks stable. Patient is afebrile. Labs reviewed and they look unremarkable. And x-ray showing no acute fracture, mild to moderate diffuse soft tissue swelling 11/19/2018 Patient today feels better, he says that he can move his finger better than yes terday and the swelling is coming down. His hand is wrapped with Abdelrahman bandage. His been having no fever. No leukocytosis and creatinine 0.7. Sugar is controlled. He remains on Unasyn and infectious disease team are following. Orthopedic consult is appreciated as well, no need for surgical intervention currently. 11/20/2018 pt is still improving and he was happy he can do, better fist which he could not do when he first came in. surgery follow up is appreciated , no surgery is indicated . continue to elevate hand at night , and pt is aware and is doing it, his swelling is down .his sugar is better controlled today , Objective - Vital Signs Vital signs: Vital Signs Temp 97.1 F L 11/20/18 15:00 Pulse 76 11/20/18 19:00 Resp 18 11/20/18 15:37 BP 124/80 11/20/18 15:00 Pulse Ox 100 11/20/18 15:00 Intake & Output 11/20/18 11/20/18 11/21/18 06:59 18:59 06:59 Intake Total 640 Output Total 1500 Balance -860 Intake: Oral 640 Output: Urine 1500 Other: # Voids 2 3 - Exam GENERAL: The patient is alert and oriented x3, not in any acute distress. Well developed, well nourished. HEENT: Pupils are round and equally reacting to light. EOMI. No scleral icterus. No conjunctival pallor. Normocephalic, atraumatic. No pharyngeal erythema. No thyromegaly. CARDIOVASCULAR: S1 and S2 present. No murmurs, rubs, or gallops. PULMONARY: Chest is clear to auscultation, no wheezing or crackles. ABDOMEN: Soft, nontender, nondistended, normoactive bowel sounds. No palpable organomegaly. MUSCULOSKELETAL: No joint swelling or deformity. Right hand exam, right hand is swollen, redness are improving, he is able to only flex his fingers more . He has sensation. He has multiple stretch gaitan on the dorsum of the hand. The swelling extends up to the proximal part of his forearm to a lesser degree . improving EXTREMITIES: No cyanosis, clubbing, or pedal edema. NEUROLOGICAL: Gross neurological examination did not reveal any focal deficits. SKIN: No rashes. - Labs CBC & Chem 7: 11/20/18 09:42 11/20/18 09:42 Labs: Abnormal Lab Results - Last 24 Hours (Table) 11/19/18 11/20/18 11/20/18 Range/Units 21:22 02:52 07:10 RBC (4.30-5.90) m/uL Hgb (13.0-17.5) gm/dL Hct (39.0-53.0) % Glucose (74-99) mg/dL POC Glucose (mg/dL) 129 H 134 H 122 H (75-99) mg/dL 11/20/18 11/20/18 11/20/18 Range/Units 09:42 09:42 11:50 RBC 3.75 L (4.30-5.90) m/uL Hgb 12.1 L (13.0-17.5) gm/dL Hct 36.3 L (39.0-53.0) % Glucose 130 H (74-99) mg/dL POC Glucose (mg/dL) 156 H (75-99) mg/dL 11/20/18 Range/Units 16:34 RBC (4.30-5.90) m/uL Hgb (13.0-17.5) gm/dL Hct (39.0-53.0) % Glucose (74-99) mg/dL POC Glucose (mg/dL) 154 H (75-99) mg/dL Microbiology - Last 24 Hours (Table) 11/17/18 20:05 Blood Culture - Preliminary Blood No Growth after 48 hours Assessment and Plan Assessment: Right hand swelling, tenderness and erythema, some small scratching gaitan on the dorsum of the hand. Minimal swelling on the forearm. Secondary to cat bite Nonadherence to treatment Diabetes mellitus Essential hypertension Hyperlipidemia History of seizure History of migraine Plan: This is a pleasant 53 years old male who presents with right hand swelling and impossible infection. Continue with antibiotics and adjusted as per infectious disease recommendation. Appreciated orthopedic consult, no need for surgical intervention and Doppler of the upper extremity is negative for DVT Labs and medication were reviewed.. Continue same treatment. Continue with symptomatic treatment. Resume home medication. Monitor lytes and vitals. DVT and GI prophylaxis. Further recommendations of the clinical course of the patient DVT prophylaxis: Subcutaneous heparin GI Prophylaxis: Pepcid PT/OT: Prognosis is guarded
[2018-11-20] MEDS: ATORVASTATIN 20 MG TAB PO SCH (20:56)
[2018-11-20 20:59] LABS: Glucose,Whole Blood 114 mg/dL (75-99)
[2018-11-20 22:53] LABS: Glucose,Whole Blood 209 mg/dL (75-99)
--- NOTE | 2018-11-20 23:21 | P.PN ---
Subjective Progress Note Date: 11/20/18 53 -year-old gentleman who has a history of a closed head injury and works at [employer] relates that they have 5 cats in the home. He relates they're all vaccinated against rabies in routine vaccines. The patient relates that to the cats were fighting he try to separate them. His right hand didn't subtle arm were between the 2 animals when he appears to have had multiple scratches and bites onto the hand and distal arm. He relates now 5 days after the event that he started to have increasing amounts of swelling to the hand and lower part of the arm. There is some mild erythematous ascending the arm. He started to feel poorly with what appears to be some low-grade fever no vinh chills or rigors. because he was having worsening center presented to the emergency center in counseling is admitted because cellulitis to the right hand. He was seen in the outpatient setting it appears that he was placed on ciprofloxacin and with that he was concerned about the many side effects including it appears to be psychiatric in musculoskeletal side effects. He constantly was not taking the antibiotic any further when his hand started to worsen. He now relates since coming to Hospital he's feeling just slightly better but not significantly better as of yet. He does not recall prior injury to the hand. 11/19/2018 patient started to feel little bit better today. The patient has swelling to the hand is improved. Debility using it is improved. Still has swelling erythema and discomfort at this time. Is denying fevers or chills. 11/20/2018 patient has had further improvement. With rapid elevation antibiotic therapy he is feeling considerably better. Toradol has help pain and swelling also and his had further improvement in the last day. Objective - Vital Signs Vital signs: Vital Signs Temp 98.5 F 11/20/18 20:30 Pulse 86 11/20/18 20:30 Resp 18 11/20/18 20:30 BP 137/87 11/20/18 20:30 Pulse Ox 100 11/20/18 20:30 Intake & Output 11/20/18 11/20/18 11/21/18 06:59 18:59 06:59 Intake Total 640 Output Total 1500 Balance -860 Intake: Oral 640 Output: Urine 1500 Other: # Voids 2 3 1 - Exam 53-year-old male distress HEENT: Anicteric conjunctiva are pink and moist nasal mucosa grossly intact without significant lesions, there is no thrush.very poor dentition fractured carious teeth Neck: The neck is supple without significant lymphadenopathy or thyromegaly. Lungs: Good bilateral air entry without significant crackles or wheezing. There is no significant bronchial sounds. There is no egophony or dullness. Heart: Regular rate and rhythm with an audible S1-S2, no S3 no S4. There is no significant murmur click or rub, PMI was nondisplaced. Abdomen: Positive bowel sounds soft and nontender without palpable masses or organomegaly. There was no guarding or rebound. Extremities: The upper extremities are muscular, evidence of improvement of the swelling and erythema to the right hand to proximal to the wrist. Left arm without acute abnormality No splinter hemorrhages were noted. The lower extre mities are free from significant edema. The peripheral pulses were 2+ and symmetric. Neuro: Awake alert oriented to person place and time. There are no acute new gross focal sensory motor deficits. - Labs CBC & Chem 7: 11/20/18 09:42 11/20/18 09:42 Labs: Abnormal Lab Results - Last 24 Hours (Table) 11/20/18 11/20/18 11/20/18 Range/Units 02:52 07:10 09:42 RBC 3.75 L (4.30-5.90) m/uL Hgb 12.1 L (13.0-17.5) gm/dL Hct 36.3 L (39.0-53.0) % Glucose (74-99) mg/dL POC Glucose (mg/dL) 134 H 122 H (75-99) mg/dL 11/20/18 11/20/18 11/20/18 Range/Units 09:42 11:50 16:34 RBC (4.30-5.90) m/uL Hgb (13.0-17.5) gm/dL Hct (39.0-53.0) % Glucose 130 H (74-99) mg/dL POC Glucose (mg/dL) 156 H 154 H (75-99) mg/dL 11/20/18 11/20/18 Range/Units 20:58 22:52 RBC (4.30-5.90) m/uL Hgb (13.0-17.5) gm/dL Hct (39.0-53.0) % Glucose (74-99) mg/dL POC Glucose (mg/dL) 114 H 209 H (75-99) mg/dL Microbiology - Last 24 Hours (Table) 11/17/18 20:05 Blood Culture - Preliminary Blood No Growth after 72 hours Laboratory Results WBC 7.5 k/uL (3.8-10.6) 11/20/18 09:42 RBC 3.75 m/uL (4.30-5.90) L 11/20/18 09:42 Hgb 12.1 gm/dL (13.0-17.5) L 11/20/18 09:42 Hct 36.3 % (39.0-53.0) L 11/20/18 09:42 MCV 96.6 fL (80.0-100.0) 11/20/18 09:42 MCH 32.2 pg (25.0-35.0) 11/20/18 09:42 MCHC 33.4 g/dL (31.0-37.0) 11/20/18 09:42 RDW 13.2 % (11.5-15.5) 11/20/18 09:42 Plt Count 227 k/uL (150-450) 11/20/18 09:42 Neutrophils % 65 % 11/20/18 09:42 Lymphocytes % 23 % 11/20/18 09:42 Monocytes % 8 % 11/20/18 09:42 Eosinophils % 2 % 11/20/18 09:42 Basophils % 0 % 11/20/18 09:42 Neutrophils # 4.9 k/uL (1.3-7.7) 11/20/18 09:42 Lymphocytes # 1.7 k/uL (1.0-4.8) 11/20/18 09:42 Monocytes # 0.6 k/uL (0-1.0) 11/20/18 09:42 Eosinophils # 0.2 k/uL (0-0.7) 11/20/18 09:42 Basophils # 0.0 k/uL (0-0.2) 11/20/18 09:42 Sodium 137 mmol/L (137-145) 11/20/18 09:42 Potassium 4.4 mmol/L (3.5-5.1) 11/20/18 09:42 Chloride 107 mmol/L (98-107) 11/20/18 09:42 Carbon Dioxide 23 mmol/L (22-30) 11/20/18 09:42 Anion Gap 7 mmol/L 11/20/18 09:42 BUN 14 mg/dL (9-20) 11/20/18 09:42 Creatinine 0.74 mg/dL (0.66-1.25) 11/20/18 09:42 Est GFR (CKD-EPI)AfAm >90 (>60 ml/min/1.73 sqM) 11/20/18 09:42 Est GFR (CKD-EPI)NonAf >90 (>60 ml/min/1.73 sqM) 11/20/18 09:42 Glucose 130 mg/dL (74-99) H 11/20/18 09:42 POC Glucose (mg/dL) 209 mg/dL (75-99) H 11/20/18 22:52 POC Glu [place] Hand ID Belen Brown 11/20/18 22:[address] Glu mg/dL 272 11/18/18 05:37 Hemoglobin A1c 11.1 % (4.0-6.0) H 11/18/18 05:37 Calcium 8.5 mg/dL (8.4-10.2) 11/20/18 09:42 Total Bilirubin 0.9 mg/dL (0.2-1.3) 11/17/18 20:05 AST 20 U/L (17-59) 11/17/18 20:05 ALT 35 U/L (21-72) 11/17/18 20:05 Alkaline Phosphatase 139 U/L (38-126) H 11/17/18 20:05 Total Protein 6.6 g/dL (6.3-8.2) 11/17/18 20:05 Albumin 3.8 g/dL (3.5-5.0) 11/17/18 20:05 Microbiology 11/17/18 20:05 Blood Blood Culture - Preliminary No Growth after 72 hours Assessment and Plan (1) Cat bite Narrative/Plan: 53-year-old male who has multiple cats at the home that they stay are vaccinated for rabies. The patient relates that his right hand lower arm became injured when he tried to separate 2 cats. Multiple scratches and bites occurred. He had some swelling and discomfort and eventually went to his primary care physician and was given ciprofloxacin. However given the many potential side effects from the medication and the fact first dose did not make him feel well he stopped taking it. They can continue to swell become more painful was able to make a fist and had redness ascending the arm and constantly presented to the emergency center. The patient's Keflex ALLERGY is noted to be nausea and constantly Unasyn has been started these are starting to have in improvement. Silvadene with rolled gauze and ASIS being requested as well as a couple of pillows to elevate the hand while he is resting to bring down the edema. Tetanus vaccine was already updated. Multivitamin is added. Smoking cessation is discussed. Toradol is added for pain control. 11/19/2018 patient has improved significantly in the last day. Is still some erythema and swelling tenderness and decreased use of the hand. Portioning is showing good improvement at this time. We'll continue with current Silvadene wrap elevation and anti-inflammatories. Antibiotic therapies with Unasyn with adequate response at this time. 11/20/2018 patient is had further improvement in the last 24 hours. If continues to improve will be ready for discharge home tomorrow. Unasyn will be changed to Augmentin. We continue to wrap the hand for a day or 2 after discharge. Current Visit: Yes Status: Acute Code(s): W55.01XA - BITTEN BY CAT, INITIAL ENCOUNTER SNOMED Code(s): 187672979 (2) Cellulitis Current Visit: Yes Status: Acute Code(s): L03.90 - CELLULITIS, UNSPECIFIED SNOMED Code(s): 694664540
[2018-11-21] MEDS: AMPICILLIN-SULBACTAM 3 GM in SODIUM CHLORIDE 0.9% 100 ML IVPB SCH ×2 (04:04→13:21)
[2018-11-21] MEDS: KETOROLAC 30 MG/ML 1 ML VIAL IVP SCH ×2 (06:23→13:21)
[2018-11-21 07:00] LABS: Glucose,Whole Blood 350 mg/dL (75-99)
[2018-11-21] MEDS: IPRATROPIUM 0.5 MG/2.5 ML NEBU INHALATION SCH ×3 (07:31→15:30)
[2018-11-21] MEDS: INSULIN ASPART (NovoLOG) 100 UNIT/ML VIAL SQ SCH ×4 (07:54→13:32)
[2018-11-21] MEDS: INSULIN DETEMIR (LEVEMIR) 100 UNIT/ML SYR SQ SCH (07:54)
[2018-11-21] MEDS: MULTIVITAMINS, THERA 1 EACH TAB PO SCH (07:55)
[2018-11-21] MEDS: BACLOFEN 10 MG TAB PO SCH (07:55)
[2018-11-21] MEDS: GABAPENTIN 400 MG CAP PO SCH (07:55)
[2018-11-21] MEDS: PHENYTOIN SODIUM EXTENDED 100 MG CAP PO SCH (07:56)
[2018-11-21] MEDS: LISINOPRIL 5 MG TAB PO SCH (07:56)
[2018-11-21 11:24] VITALS: PULSE 76
[2018-11-21 11:34] LABS: Glucose,Whole Blood 144 mg/dL (75-99)
--- NOTE | 2018-11-21 12:15 | P.PN ---
Subjective Progress Note Date: 11/21/18 This is a 53-year-old male who is admitted for cellulitis from a cat bite of the right hand. Patient states that he has noticed some increase in swelling of the right hand, but attributes this to not elevating right hand. Patient states that he is otherwise doing well. Objective - Vital Signs Vital signs: Vital Signs Temp 98.1 F 11/21/18 04:35 Pulse 76 11/21/18 11:35 Resp 18 11/21/18 04:35 BP 141/88 11/21/18 04:35 Pulse Ox 100 11/21/18 04:35 Intake & Output 11/20/18 11/21/18 11/21/18 18:59 06:59 18:59 Intake Total 640 Output Total 1500 Balance -860 Intake: Oral 640 Output: Urine 1500 Other: Voiding Method Toilet # Voids 3 5 - Exam On exam there is mild swelling to the dorsal aspect of the right hand. Patient has good range of motion of the fingers of the right hand without pain or difficulty. Sensation is intact. There is minimal erythema. Patient has full range of motion of the right wrist. Neurovascular status and circulatory status are intact. - Labs CBC & Chem 7: 11/20/18 09:42 11/20/18 09:42 Labs: Abnormal Lab Results - Last 24 Hours (Table) 11/20/18 11/20/18 11/20/18 Range/Units 11:50 16:34 20:58 POC Glucose (mg/dL) 156 H 154 H 114 H (75-99) mg/dL 11/20/18 11/21/18 11/21/18 Range/Units 22:52 06:58 11:14 POC Glucose (mg/dL) 209 H 350 H 144 H (75-99) mg/dL Microbiology - Last 24 Hours (Table) 11/17/18 20:05 Blood Culture - Preliminary Blood No Growth after 72 hours Assessment and Plan (1) Cat bite Current Visit: Yes Status: Acute Code(s): W55.01XA - BITTEN BY CAT, INITIAL ENCOUNTER SNOMED Code(s): 263652813 (2) Cellulitis Current Visit: Yes Status: Acute Code(s): L03.90 - CELLULITIS, UNSPECIFIED SNOMED Code(s): 997738229 Plan: #1.Continue IV antibiotics per infectious disease. #2. Warm compresses to the right hand as needed. #3. Elevate the right hand for swelling. #4. No surgical intervention planned. Patient may follow up as an outpatient as needed.
[2018-11-21] MEDS: HYDROcodone/APAP 5-325MG 1 EACH TAB PO PRN (13:32)
[2018-11-21 13:37] VITALS: BP 132/86; TEMP 97.4
== END 2018-11-21 15:36 | disposition home or self-care (01) | DRG 603 ==
LOC: EC 18:38 → 4MS4W 21:21
PROVIDERS: ADMIT Hospitalist; ATTEND Hospitalist
PROC: 3E0234Z Introduction of Serum, Toxoid and Vaccine into Muscle, Percutaneous Approach (ICD-10-PCS; principal; 2018-11-17)
DX: L03.113 Cellulitis of right upper limb (principal); S61.451A Open bite of right hand, initial encounter; W55.01XA Bitten by cat, initial encounter; E11.9 Type 2 diabetes mellitus without complications; E78.5 Hyperlipidemia, unspecified; Z71.6 Tobacco abuse counseling; F17.210 Nicotine dependence, cigarettes, uncomplicated; G40.909 Epilepsy, unspecified, not intractable, without status epilepticus; I10 Essential (primary) hypertension; Z79.4 Long term (current) use of insulin; Z79.899 Other long term (current) drug therapy; Z88.1 Allergy status to other antibiotic agents; Z88.5 Allergy status to narcotic agent; T36.96XA Underdosing of unspecified systemic antibiotic, initial encounter; Z91.128 Patient's intentional underdosing of medication regimen for other reason; Z87.820 Personal history of traumatic brain injury; G43.909 Migraine, unspecified, not intractable, without status migrainosus; Z23 Encounter for immunization
CPT/HCPCS: 36415; 80048; 80053; 83036; 85025; 87040; 94640; 96365; 96366; 96375; 99284

== ENCOUNTER 2018-12-01 18:02 | Emergency (ER) | payer OTHER ==
[2018-12-01 18:17] VITALS: BP 130/76; PULSE 93; RESP 18; TEMP 97.6
[2018-12-01] MEDS ORDERED: AMOXIC-POT CLAV 875MG STARTER 2 EACH TABLET PO STA (19:12)
[2018-12-01] MEDS ORDERED: AMOXIC-POT CLAV 875-125MG 1 EACH TAB PO STA (19:12)
[2018-12-01] MEDS ORDERED: DEXAMETHASONE 4 MG TAB PO STA (19:12)
--- NOTE | 2018-12-01 19:14 | ED ---
Extremity Problem HPI - General Chief complaint: Extremity Problem,Nontraumatic Stated complaint: Infection in hand Time Seen by Provider: 12/01/18 18:24 Source: patient, RN notes reviewed, old records reviewed Limitations: no limitations - History of Present Illness Initial comments: This is a 33-year-old male the ER for evaluation. Patient resents today for evaluation of hand pain. Recent diagnosis of Bite with infection, patient had inpatient hospitalization and was improving. Patient states she's been home and the pain started to Come back and decreased range of motion. Patient denies fevers. No new or recent illness. No redness is noted to the area MD Complaint: extremity pain, extremity swelling -: days(s) Location: right, upper extremity (Hand) History of Same: Yes Radiation: none Severity scale (1-10): 5 Quality: aching Consistency: constant Improves with: nothing Worsens with: nothing Associated Symptoms: denies other symptoms - Related Data Home Medications Medication Instructions Recorded Confirmed Lisinopril [Zestril] 5 mg PO DAILY 03/20/14 11/17/18 Atorvastatin [Lipitor] 20 mg PO HS 01/05/16 11/17/18 Insulin Glulisine [Apidra Solostar] 15 unit SQ AC-TID 01/05/16 11/17/18 Albuterol Inhaler [Ventolin Hfa 2 puff INHALATION RT-QID PRN 03/25/17 11/17/18 Inhaler] Ranitidine HCl 150 mg PO DAILY PRN 03/25/17 11/17/18 Fluticasone Nasal [place] [Flonase 1 spray EA NOSTRIL DAILY PRN 04/28/17 11/17/18 Nasal [place]] Gabapentin [Neurontin] 800 mg PO TID 04/28/17 11/17/18 Phenytoin Sodium Extended 100 mg PO TID 04/28/17 11/17/18 [Dilantin] Baclofen 10 mg PO BID 05/25/17 11/17/18 Insulin Glargine [Lantus] 10 unit SQ BID 08/10/17 11/17/18 Promethazine/Dextromethorphan 5 ml PO TID PRN 08/10/17 11/17/18 [Phenergan DM Syrup] Albuterol Nebulized [Ventolin 2.5 mg INHALATION RT-TID PRN 11/17/18 11/17/18 Nebulized] Umeclidinium [place] [Incruse 1 puff INHALATION RT-DAILY 11/17/18 11/17/18 Ellipta] SUMAtriptan SUCCINATE [Imitrex] 50 mg PO DIRECTED 11/18/18 11/18/18 Previous Rx's Medication Instructions Recorded Amoxic-Pot Clav 875-125Mg 1 tab PO Q12HR #14 tablet 11/20/18 [Augmentin 875-125] HYDROcodone/APAP 5-325MG [[place] 1 each PO DAILY PRN 3 Days #3 tab 11/21/18 5-325] Amoxic-Pot Clav 875-125Mg 1 tab PO Q12HR #20 tablet 12/01/18 [Augmentin 875-125] Allergies Allergy/AdvReac Type Severity Reaction Status Date / Time cephalexin [From Keflex] AdvReac Nausea & Verified 12/01/18 18:58 Vomiting codeine AdvReac Abdominal Verified 12/01/18 18:58 Pain Review of Systems ROS Statement: Those systems with pertinent positive or pertinent negative responses have been documented in the HPI. ROS Other: All systems not noted in ROS Statement are negative. Past Medical History Past Medical History: Diabetes Mellitus, Hyperlipidemia, Hypertension, Seizure Disorder Additional Past Medical History / Comment(s): Closed Head Injury, migraines, History of Any Multi-Drug Resistant Organisms: None Reported Past Surgical History: Orthopedic Surgery Additional Past Surgical History / Comment(s): right leg Past Psychological History: No Psychological Hx Reported Smoking Status: Current every day smoker Past Alcohol Use History: None Reported Past Drug Use History: Marijuana General Exam - General Exam Comments Initial Comments: Patient does have mild swelling to right hand, dorsal surface, no significant erythema noted, full range of motion with no erythema spreading proximally Limitations: no limitations General appearance: alert, in no apparent distress Head exam: Present: atraumatic, normocephalic, normal inspection Eye exam: Present: normal appearance, PERRL, EOMI. Absent: scleral icterus, conjunctival injection, periorbital swelling ENT exam: Present: normal exam, mucous membranes moist Neck exam: Present: normal inspection. Absent: tenderness, meningismus, lymphadenopathy Respiratory exam: Present: normal lung sounds bilaterally. Absent: respiratory distress, wheezes, rales, rhonchi, stridor Cardiovascular Exam: Present: regular rate, normal rhythm, normal heart sounds. Absent: systolic murmur, diastolic murmur, rubs, gallop, clicks GI/Abdominal exam: Present: soft, normal bowel sounds. Absent: distended, tenderness, guarding, rebound, rigid Extremities exam: Present: normal inspection, full ROM, normal capillary refill. Absent: tenderness, pedal edema, joint swelling, calf tenderness Back exam: Present: normal inspection Neurological exam: Present: alert, oriented X3, CN II-XII intact Psychiatric exam: Present: normal affect, normal mood Skin exam: Present: warm, dry, intact, normal color. Absent: rash Course Vital Signs 12/01/18 18:13 Temperature 97.6 F Pulse Rate 93 Respiratory 18 Rate Blood Pressure 130/76 O2 Sat by Pulse 100 Oximetry Medical Decision Making - Medical Decision Making 50 female the ER for evaluation, patient coming in with what he believes is a recurrent cellulitis from [place]. Patient does not want inpatient admission currently, will follow-up as an outpatient, patient is asking and requesting and antibiotic Disposition Clinical Impression: Cat bite, Cellulitis, Swelling of right hand Disposition: HOME SELF-CARE Condition: Good Instructions (If sedation given, give patient instructions): Animal Bite (ED) Prescriptions: Amoxic-Pot Clav 875-125Mg [Augmentin 875-125] 1 tab PO Q12HR #20 tablet Is patient prescribed a controlled substance at d/c from ED?: No Referrals: Cy White DO [Doctor of Osteopathic Medicine] - 1-2 days
== END 2018-12-01 19:27 | disposition home or self-care (01) ==
LOC: EC 18:02
DX: S61.451A Open bite of right hand, initial encounter (principal); L03.113 Cellulitis of right upper limb; W55.01XA Bitten by cat, initial encounter; E11.9 Type 2 diabetes mellitus without complications; E78.5 Hyperlipidemia, unspecified; I10 Essential (primary) hypertension; G40.909 Epilepsy, unspecified, not intractable, without status epilepticus; G43.909 Migraine, unspecified, not intractable, without status migrainosus; F17.200 Nicotine dependence, unspecified, uncomplicated; Z79.4 Long term (current) use of insulin; Z79.51 Long term (current) use of inhaled steroids; Z79.899 Other long term (current) drug therapy; Z88.1 Allergy status to other antibiotic agents; Z88.5 Allergy status to narcotic agent
CPT/HCPCS: 99283; J8540

== ENCOUNTER 2018-12-13 15:04 | Emergency (ER) | payer OTHER ==
[2018-12-13] MEDS ORDERED: SODIUM CHLORIDE 0.9% 1,000 ML IV ONE ×2 (15:28)
[2018-12-13 15:34] VITALS: PULSE 90; RESP 18
[2018-12-13 15:52] LABS: Basophils % (A) 0 %; Eosinophils # (A) 0.2 k/uL (0-0.7); Eosinophils % (A) 3 %; HCT 35.7 % (39.0-53.0); HGB 11.7 gm/dL (13.0-17.5); Lymphocytes # (A) 1.2 k/uL (1.0-4.8); Lymphocytes % (A) 22 %; MCH 31.1 pg (25.0-35.0); MCHC 32.9 g/dL (31.0-37.0); MCV 94.6 fL (80.0-100.0); Monocytes # (A) 0.4 k/uL (0-1.0); Monocytes % (A) 7 %; Neutrophils # (A) 3.6 k/uL (1.3-7.7); Neutrophils % (A) 66 %; Platelet Count 240 k/uL (150-450); RBC 3.77 m/uL (4.30-5.90); RDW 13.4 % (11.5-15.5); WBC 5.5 k/uL (3.8-10.6)
[2018-12-13 15:57] LABS: INR 0.9 (<1.2); Partial Thromboplastin Time 23.6 sec (22.0-30.0); Prothrombin Time 9.8 sec (9.0-12.0)
[2018-12-13 15:58] LABS: ALT 46 U/L (21-72); AST 55 U/L (17-59); Albumin 3.7 g/dL (3.5-5.0); Alkaline Phosphatase 120 U/L (38-126); Anion Gap 5 mmol/L; Blood Urea Nitrogen 17 mg/dL (9-20); Calcium 8.6 mg/dL (8.4-10.2); Carbon Dioxide 28 mmol/L (22-30); Chloride 106 mmol/L (98-107); Glucose 88 mg/dL (74-99); Potassium 3.4 mmol/L (3.5-5.1); Sodium 139 mmol/L (137-145); Total Bilirubin 0.2 mg/dL (0.2-1.3); Total Protein 6.2 g/dL (6.3-8.2)
[2018-12-13 16:04] LABS: Glucose,Whole Blood 49 mg/dL (75-99)
[2018-12-13] MEDS ORDERED: DEXTROSE 5%-0.45% NACL 1,000 ML IV ONE (16:04)
[2018-12-13 16:08] LABS: Glucose,Whole Blood 353 mg/dL (75-99)
--- NOTE | 2018-12-13 16:29 | ED ---
General Adult HPI - General Chief complaint: Dizziness Stated complaint: Low blood sugar Time Seen by Provider: 12/13/18 15:27 Source: patient, EMS, RN notes reviewed Mode of arrival: EMS Limitations: no limitations - History of Present Illness Initial comments: Patient is a 53-year-old male present emergency department today for evaluation complaint of unresponsive episode. Upon EMS arrival Patient was found be hypoglycemic blood sugar 49. An amp of D50 was given. Patient complains the headache upon arrival. When he did arrive he still was lethargic and unresponsive. He did arouse to painful stimuli. Patient reports that he could not remember anything that happened before after 1 PM today when he was at work. He does not remove her coming home. The Patient had the episode of low blood sugar and was unresponsive he was at home and family called. He does not know. His head. Patient denies any other significant pains or complaints at this time said a headache. - Related Data Home Medications Medication Instructions Recorded Confirmed Lisinopril [Zestril] 5 mg PO DAILY 03/20/14 12/13/18 Atorvastatin [Lipitor] 20 mg PO HS 01/05/16 12/13/18 Albuterol Inhaler [Ventolin Hfa 2 puff INHALATION RT-QID PRN 03/25/17 12/13/18 Inhaler] Ranitidine HCl 150 mg PO BID 03/25/17 12/13/18 Fluticasone Nasal [place] [Flonase 1 spray EA NOSTRIL DAILY PRN 04/28/17 12/13/18 Nasal [place]] Phenytoin Sodium Extended 100 mg PO TID 04/28/17 12/13/18 [Dilantin] Baclofen 10 mg PO BID 05/25/17 12/13/18 Insulin Glargine [Lantus] 10 unit SQ BID 08/10/17 12/13/18 Albuterol Nebulized [Ventolin 2.5 mg INHALATION RT-TID PRN 11/17/18 12/13/18 Nebulized] Umeclidinium [place] [Incruse 1 puff INHALATION RT-DAILY 11/17/18 12/13/18 Ellipta] SUMAtriptan SUCCINATE [Imitrex] 50 mg PO BID PRN 11/18/18 12/13/18 Fluticasone/Salmeterol 2 puff INHALATION RT-BID 12/13/18 12/13/18 [Fluticasone-Salmeterol 113-14] Ibuprofen [Motrin] 600 mg PO Q8H PRN 12/13/18 12/13/18 Insulin Lispro [Admelog] 15 unit SQ AC-TID 12/13/18 12/13/18 Loratadine 10 mg PO DAILY 12/13/18 12/13/18 Ondansetron [Zofran] 4 mg PO BID PRN 12/13/18 12/13/18 Previous Rx's Medication Instructions Recorded Amoxic-Pot Clav 875-125Mg 1 tab PO Q12HR #20 tablet 12/01/18 [Augmentin 875-125] Allergies Allergy/AdvReac Type Severity Reaction Status Date / Time cephalexin [From Keflex] AdvReac Nausea & Verified 12/13/18 16:33 Vomiting codeine AdvReac Abdominal Verified 12/13/18 16:33 Pain Review of Systems ROS Statement: Those systems with pertinent positive or pertinent negative responses have been documented in the HPI. ROS Other: All systems not noted in ROS Statement are negative. Past Medical History Past Medical History: Diabetes Mellitus, Hyperlipidemia, Hypertension, Seizure Disorder Additional Past Medical History / Comment(s): Closed Head Injury, migraines, History of Any Multi-Drug Resistant Organisms: None Reported Past Surgical History: Orthopedic Surgery Additional Past Surgical History / Comment(s): right leg Past Psychological History: No Psychological Hx Reported Smoking Status: Current every day smoker Past Alcohol Use History: None Reported Past Drug Use History: Marijuana General Exam - General Exam Comments Initial Comments: 53-year-old male. Initial evaluation Patient was somnolent, arousable to painful stimuli. General: Well appearing, well nourished, in no distress. Ambulating without difficulty. Skin: Good turgor, no rash, unusual bruising or prominent lesions Hair: Normal texture and distribution. HEENT: Head: Normocephalic, atraumatic, no visible or palpable masses, depressions, or scaring. Eyes: Visual acuity intact, conjunctiva clear, sclera non-icteric, EOM intact, PERRL. Ears: EACs clear, TMs translucent & cone of light visualized. hearing intact. Nose: No external lesions, mucosa non-inflamed, septum and turbinates normal Mouth: Mucous membranes moist, no mucosal lesions. Teeth/Gums: No obvious caries or periodontal disease. No gingival inflammation or significant resorption. Pharynx: Mucosa non-inflamed, no tonsillar hypertrophy or exudate Neck: Supple, without lesions, bruits, or adenopathy, thyroid non-enlarged and non-tender Heart: No cardiomegaly or thrills; regular rate and rhythm, no murmur or gallop Lungs: Clear to auscultation and percussion Abdomen: Bowel sounds normal, no tenderness, organomegaly, masses, or hernia Back: Spine normal without deformity or tenderness, no CVA tenderness Extremities: No amputations or deformities, cyanosis, edema or varicosities, peripheral pulses intact Musculoskeletal: Normal gait and station. No misalignment, asymmetry, crepitation, defects, tenderness, masses, effusions, decreased range of motion, instability, atrophy or abnormal strength or tone in the head, neck, spine, ribs, pelvis or extremities. Neurologic: CN 2-12 normal. Sensation to pain, touch, and proprioception normal. DTRs normal in upper and lower extremities. No pathologic reflexes. Psychiatric: Oriented X3, intact recent and remote memory, judgment and insight, normal mood and affect. Limitations: no limitations Course Vital Signs 12/13/18 15:27 Temperature 97.9 F Pulse Rate 90 Respiratory 18 Rate Blood Pressure 166/90 O2 Sat by Pulse 100 Oximetry - Reevaluation(s) Reevaluation #1: 12/13/18 16:29 Patient had another unresponsive episode blood sugar was checked and was 43 after receiving an amp of D50. Started on D5 for 5. EKG Findings - EKG Comments: EKG Findings:: EKG performed at 1556 shows an essentially normal EKG. Ventric ular rate of 80 beats were minute. Pulse 192 ms. QS duration 80 ms. QT QTc is 4/465 ms. No evidence of ST elevation or T-wave inversions. Medical Decision Making - Medical Decision Making 53-year-old male presents for his pharmacy today for concerns for syncopal episodes and unarousable. Patient fell and hit his head. He arrives complaini ng of a headache. Upon EMS arrival Patient had a low blood sugar 43. Patient had ample D50. Upon arrival to the ED blood sugar to be well and he was unarousable. He was did respond to painful stimuli, is given amp D50. Afterward Patient appeared well alert and oriented. QT and platelet headache. CT of the brain was completed for conservative possibly fallen continued headache. This is negative for any acute disease. Patient's labwork was reviewed and unremarkable. Patient will be discharged at this time after eating and drinking and blood sugar remained stable. Discussed that he needs follow up with endocrinology about appropriate dosing of his insulin. Patient agrees treatment plan will comply. - Lab Data Result diagrams: 12/13/18 15:38 12/13/18 15:38 Lab Results 12/13/18 12/13/18 12/13/18 Range/Units 15:21 15:38 15:38 WBC 5.5 (3.8-10.6) k/uL RBC 3.77 L (4.30-5.90) m/uL Hgb 11.7 L (13.0-17.5) gm/dL Hct 35.7 L (39.0-53.0) % MCV 94.6 (80.0-100.0) fL MCH 31.1 (25.0-35.0) pg MCHC 32.9 (31.0-37.0) g/dL RDW 13.4 (11.5-15.5) % Plt Count 240 (150-450) k/uL Neutrophils % 66 % Lymphocytes % 22 % Monocytes % 7 % Eosinophils % 3 % Basophils % 0 % Neutrophils # 3.6 (1.3-7.7) k/uL Lymphocytes # 1.2 (1.0-4.8) k/uL Monocytes # 0.4 (0-1.0) k/uL Eosinophils # 0.2 (0-0.7) k/uL Basophils # 0.0 (0-0.2) k/uL PT (9.0-12.0) sec INR (<1.2) APTT (22.0-30.0) sec Sodium 139 (137-145) mmol/L Potassium 3.4 L (3.5-5.1) mmol/L Chloride 106 (98-107) mmol/L Carbon Dioxide 28 (22-30) mmol/L Anion Gap 5 mmol/L BUN 17 (9-20) mg/dL Creatinine 0.92 (0.66-1.25) mg/dL Est GFR (CKD-EPI)AfAm >90 (>60 ml/min/1.73 sqM) Est GFR (CKD-EPI)NonAf >90 (>60 ml/min/1.73 sqM) Glucose 88 (74-99) mg/dL POC Glucose (mg/dL) 353 H (75-99) mg/dL POC Glu [employer] Manager ID Margarita Quinn Calcium 8.6 (8.4-10.2) mg/dL Total Bilirubin 0.2 (0.2-1.3) mg/dL AST 55 (17-59) U/L ALT 46 (21-72) U/L Alkaline Phosphatase 120 (38-126) U/L Troponin I (0.000-0.034) ng/mL Total Protein 6.2 L (6.3-8.2) g/dL Albumin 3.7 (3.5-5.0) g/dL Urine Color Urine Appearance (Clear) Urine pH (5.0-8.0) Ur Specific [place] (1.001-1.035) Urine Protein (Negative) Urine Glucose (UA) (Negative) Urine Ketones (Negative) Urine Blood (Negative) Urine Nitrite (Negative) Urine Bilirubin (Negative) Urine Urobilinogen (<2.0) mg/dL Ur Leukocyte Esterase (Negative) Urine Opiates Screen (NotDetected) Ur Oxycodone Screen (NotDetected) Urine Methadone Screen (NotDetected) Ur Propoxyphene Screen (NotDetected) Ur Barbiturates Screen (NotDetected) U Tricyclic Antidepress (NotDetected) Ur Phencyclidine Scrn (NotDetected) Ur Amphetamines Screen (NotDetected) U Methamphetamines Scrn (NotDetected) U Benzodiazepines Scrn (NotDetected) Urine Cocaine Screen (NotDetected) U Marijuana (THC) Screen (NotDetected) 12/13/18 12/13/18 12/13/18 Range/Units 15:38 15:38 15:59 WBC (3.8-10.6) k/uL RBC (4.30-5.90) m/uL Hgb (13.0-17.5) gm/dL Hct (39.0-53.0) % MCV (80.0-100.0) fL MCH (25.0-35.0) pg MCHC (31.0-37.0) g/dL RDW (11.5-15.5) % Plt Count (150-450) k/uL Neutrophils % % Lymphocytes % % Monocytes % % Eosinophils % % Basophils % % Neutrophils # (1.3-7.7) k/uL Lymphocytes # (1.0-4.8) k/uL Monocytes # (0-1.0) k/uL Eosinophils # (0-0.7) k/uL Basophils # (0-0.2) k/uL PT 9.8 (9.0-12.0) sec INR 0.9 (<1.2) APTT 23.6 (22.0-30.0) sec Sodium (137-145) mmol/L Potassium (3.5-5.1) mmol/L Chloride (98-107) mmol/L Carbon Dioxide (22-30) mmol/L Anion Gap mmol/L BUN (9-20) mg/dL Creatinine (0.66-1.25) mg/dL Est GFR (CKD-EPI)AfAm (>60 ml/min/1.73 sqM) Est GFR (CKD-EPI)NonAf (>60 ml/min/1.73 sqM) Glucose (74-99) mg/dL POC Glucose (mg/dL) 49 L (75-99) mg/dL POC Glu [employer] ID Margarita Quinn Calcium (8.4-10.2) mg/dL Total Bilirubin (0.2-1.3) mg/dL AST (17-59) U/L ALT (21-72) U/L Alkaline Phosphatase (38-126) U/L Troponin I <0.012 (0.000-0.034) ng/mL Total Protein (6.3-8.2) g/dL Albumin (3.5-5.0) g/dL Urine Color Urine Appearance (Clear) Urine pH (5.0-8.0) Ur Specific [place] (1.001-1.035) Urine Protein (Negative) Urine Glucose (UA) (Negative) Urine Ketones (Negative) Urine Blood (Negative) Urine Nitrite (Negative) Urine Bilirubin (Negative) Urine Urobilinogen (<2.0) mg/dL Ur Leukocyte Esterase (Negative) Urine Opiates Screen (NotDetected) Ur Oxycodone Screen (NotDetected) Urine Methadone Screen (NotDetected) Ur Propoxyphene Screen (NotDetected) Ur Barbiturates Screen (NotDetected) U Tricyclic Antidepress (NotDetected) Ur Phencyclidine Scrn (NotDetected) Ur Amphetamines Screen (NotDetected) U Methamphetamines Scrn (NotDetected) U Benzodiazepines Scrn (NotDetected) Urine Cocaine Screen (NotDetected) U Marijuana (THC) Screen (NotDetected) 12/13/18 12/13/18 12/13/18 Range/Units 16:44 17:30 18:12 WBC (3.8-10.6) k/uL RBC (4.30-5.90) m/uL Hgb (13.0-17.5) gm/dL Hct (39.0-53.0) % MCV (80.0-100.0) fL MCH (25.0-35.0) pg MCHC (31.0-37.0) g/dL RDW (11.5-15.5) % Plt Count (150-450) k/uL Neutrophils % % Lymphocytes % % Monocytes % % Eosinophils % % Basophils % % Neutrophils # (1.3-7.7) k/uL Lymphocytes # (1.0-4.8) k/uL Monocytes # (0-1.0) k/uL Eosinophils # (0-0.7) k/uL Basophils # (0-0.2) k/uL PT (9.0-12.0) sec INR (<1.2) APTT (22.0-30.0) sec Sodium (137-145) mmol/L Potassium (3.5-5.1) mmol/L Chloride (98-107) mmol/L Carbon Dioxide (22-30) mmol/L Anion Gap mmol/L BUN (9-20) mg/dL Creatinine (0.66-1.25) mg/dL Est GFR (CKD-EPI)AfAm (>60 ml/min/1.73 sqM) Est GFR (CKD-EPI)NonAf (>60 ml/min/1.73 sqM) Glucose (74-99) mg/dL POC Glucose (mg/dL) 57 L 90 (75-99) mg/dL POC Glu [employer] Manager ID Margarita Quinn [place] Calcium (8.4-10.2) mg/dL Total Bilirubin (0.2-1.3) mg/dL AST (17-59) U/L ALT (21-72) U/L Alkaline Phosphatase (38-126) U/L Troponin I (0.000-0.034) ng/mL Total Protein (6.3-8.2) g/dL Albumin (3.5-5.0) g/dL Urine Color Light Yellow Urine Appearance Clear (Clear) Urine pH 6.5 (5.0-8.0) Ur Specific [place] 1.013 (1.001-1.035) Urine Protein Negative (Negative) Urine Glucose (UA) 2+ H (Negative) Urine Ketones Negative (Negative) Urine Blood Negative (Negative) Urine Nitrite Negative (Negative) Urine Bilirubin Negative (Negative) Urine Urobilinogen <2.0 (<2.0) mg/dL Ur Leukocyte Esterase Negative (Negative) Urine Opiates Screen Not Detected (NotDetected) Ur Oxycodone Screen Not Detected (NotDetected) Urine Methadone Screen Not Detected (NotDetected) Ur Propoxyphene Screen Not Detected (NotDetected) Ur Barbiturates Screen Detected H (NotDetected) U Tricyclic Antidepress Not Detected (NotDetected) Ur Phencyclidine Scrn Not Detected (NotDetected) Ur Amphetamines Screen Not Detected (NotDetected) U Methamphetamines Scrn Not Detected (NotDetected) U Benzodiazepines Scrn Not Detected (NotDetected) Urine Cocaine Screen Not Detected (NotDetected) U Marijuana (THC) Screen Not Detected (NotDetected) 12/13/18 Range/Units 18:28 WBC (3.8-10.6) k/uL RBC (4.30-5.90) m/uL Hgb (13.0-17.5) gm/dL Hct (39.0-53.0) % MCV (80.0-100.0) fL MCH (25.0-35.0) pg MCHC (31.0-37.0) g/dL RDW (11.5-15.5) % Plt Count (150-450) k/uL Neutrophils % % Lymphocytes % % Monocytes % % Eosinophils % % Basophils % % Neutrophils # (1.3-7.7) k/uL Lymphocytes # (1.0-4.8) k/uL Monocytes # (0-1.0) k/uL Eosinophils # (0-0.7) k/uL Basophils # (0-0.2) k/uL PT (9.0-12.0) sec INR (<1.2) APTT (22.0-30.0) sec Sodium (137-145) mmol/L Potassium (3.5-5.1) mmol/L Chloride (98-107) mmol/L Carbon Dioxide (22-30) mmol/L Anion Gap mmol/L BUN (9-20) mg/dL Creatinine (0.66-1.25) mg/dL Est GFR (CKD-EPI)AfAm (>60 ml/min/1.73 sqM) Est GFR (CKD-EPI)NonAf (>60 ml/min/1.73 sqM) Glucose (74-99) mg/dL POC Glucose (mg/dL) 108 H (75-99) mg/dL POC Glu Casino Manager ID Isabell Marino Calcium (8.4-10.2) mg/dL Total Bilirubin (0.2-1.3) mg/dL AST (17-59) U/L ALT (21-72) U/L Alkaline Phosphatase (38-126) U/L Troponin I (0.000-0.034) ng/mL Total Protein (6.3-8.2) g/dL Albumin (3.5-5.0) g/dL Urine Color Urine Appearance (Clear) Urine pH (5.0-8.0) Ur Specific [place] (1.001-1.035) Urine Protein (Negative) Urine Glucose (UA) (Negative) Urine Ketones (Negative) Urine Blood (Negative) Urine Nitrite (Negative) Urine Bilirubin (Negative) Urine Urobilinogen (<2.0) mg/dL Ur Leukocyte Esterase (Negative) Urine Opiates Screen (NotDetected) Ur Oxycodone Screen (NotDetected) Urine Methadone Screen (NotDetected) Ur Propoxyphene Screen (NotDetected) Ur Barbiturates Screen (NotDetected) U Tricyclic Antidepress (NotDetected) Ur Phencyclidine Scrn (NotDetected) Ur Amphetamines Screen (NotDetected) U Methamphetamines Scrn (NotDetected) U Benzodiazepines Scrn (NotDetected) Urine Cocaine Screen (NotDetected) U Marijuana (THC) Screen (NotDetected) - Radiology Data Radiology results: report reviewed CT of the brain is negative for any acute process. Disposition Clinical Impression: Hypoglycemia Disposition: HOME SELF-CARE Condition: Good Instructions (If sedation given, give patient instructions): Hypoglycemia in a Person with Diabetes (ED) Additional Instructions: Follow-up with your primary care doctor and endocrinology.. Return to emergency department if any alarming signs or symptoms occur. Is patient prescribed a controlled substance at d/c from ED?: No Referrals: Alexy Evangelista MD [Primary Care Provider] - 1-2 days Amelia Tavares MD [STAFF PHYSICIAN] - 1-2 days Time of Disposition: 18:33
[2018-12-13 16:46] LABS: Glucose,Whole Blood 57 mg/dL (75-99)
--- NOTE | 2018-12-13 16:52 | XR ---
EXAMINATION: XR chest 2V DATE AND TIME: 12/13/2018 4:39 PM CLINICAL INDICATION: PHH; altered mental status TECHNIQUE: Departmental protocol COMPARISON: 05/25/2017 FINDINGS: The lungs are clear. The pleural spaces are negative. The cardiac silhouette is not enlarged. The remainder of the mediastinal silhouette is unremarkable. The skeletal structures and soft tissues are negative for acute findings. IMPRESSION: NO ACUTE PROCESS.
--- NOTE | 2018-12-13 16:55 | CT ---
EXAMINATION: CT brain wo con DATE AND TIME: 12/13/2018 4:37 PM CLINICAL INDICATION: PHH; altered mental status TECHNIQUE: Standard departmental protocol. COMPARISON: CT 09/20/2012 FINDINGS: The calvarium is intact. There is no intracranial hemorrhage. There is no intracranial mass or mass effect. No definite new intra-axial or extra-axial attenuation defect. The paranasal sinuses, middle ear cavities, and mastoid sinus air cells are clear. The orbits are unremarkable. IMPRESSION: NO ACUTE PROCESS.
[2018-12-13 18:09] LABS: Appearance,Urine Clear (Clear); Bilirubin,Urine Negative (Negative); Blood,Urine Negative (Negative); Color,Urine Light Yellow; Glucose,Urine (UA) 2+ (Negative); Ketones,Urine Negative (Negative); Leukocyte Esterase,Urine Negative (Negative); Nitrite,Urine Negative (Negative); PH, Urine 6.5 (5.0-8.0); Protein,Urine Negative (Negative); Specific Gravity,Urine 1.013 (1.001-1.035); Urobilinogen,Urine <2.0 mg/dL (<2.0)
[2018-12-13 18:23] LABS: Glucose,Whole Blood 90 mg/dL (75-99)
[2018-12-13 18:27] LABS: Amphetamine Screen,Urine Not Detected (NotDetected); Barbiturate Screen,Urine Detected (NotDetected); Benzodiazepines Screen,Urine Not Detected (NotDetected); Cocaine Screen,Urine Not Detected (NotDetected); Methadone Screen, Urine Not Detected (NotDetected); Opiate Screen,Urine Not Detected (NotDetected); Oxycodone Screen, Urine Not Detected (NotDetected); Phencyclidine Screen,Urine Not Detected (NotDetected); Tricyclic Antidepressant,Urine Not Detected (NotDetected); Urn Cannabinoid Scrn Not Detected (NotDetected)
[2018-12-13 18:29] LABS: Glucose,Whole Blood 108 mg/dL (75-99)
[2018-12-13 19:40] VITALS: BP 131/84; TEMP 98
== END 2018-12-13 19:41 | disposition home or self-care (01) ==
LOC: EC 15:04
DX: E11.649 Type 2 diabetes mellitus with hypoglycemia without coma (principal); R51 Headache; E78.5 Hyperlipidemia, unspecified; I10 Essential (primary) hypertension; G40.909 Epilepsy, unspecified, not intractable, without status epilepticus; F17.200 Nicotine dependence, unspecified, uncomplicated; Z79.51 Long term (current) use of inhaled steroids; Z79.4 Long term (current) use of insulin; Z79.899 Other long term (current) drug therapy; Z88.1 Allergy status to other antibiotic agents; Z88.5 Allergy status to narcotic agent
CPT/HCPCS: 36415; 70450; 71046; 80053; 80306; 81003; 84484; 85025; 85610; 85730; 93005; 96360; 96361; 99285

== ENCOUNTER 2019-06-18 11:58 | Inpatient (IN) | payer OTHER ==
[2019-06-18] MEDS ORDERED: KETOROLAC 30 MG/ML 1 ML VIAL IVP STA (12:34)
[2019-06-18] MEDS ORDERED: ASPIRIN 81 MG PO STA (12:34)
[2019-06-18] MEDS ORDERED: IPRATROPIUM-ALBUTEROL 3 ML NEB INHALATION STA (12:34)
[2019-06-18] MEDS ORDERED: ONDANSETRON 4 MG/2 ML VIAL IVP STA (12:34)
[2019-06-18] MEDS ORDERED: diphenhydrAMINE 50 MG/ML 1 ML VIAL IVP STA (12:34)
[2019-06-18] MEDS ORDERED: SODIUM CHLORIDE 0.9% 500 ML 500 ML IV STA (12:34)
[2019-06-18 12:57] LABS: Basophils % (A) 0 %; Eosinophils # (A) 0.1 k/uL (0-0.7); Eosinophils % (A) 1 %; HGB 12.5 gm/dL (13.0-17.5); Lymphocytes # (A) 1.2 k/uL (1.0-4.8); Lymphocytes % (A) 11 %; MCHC 33.8 g/dL (31.0-37.0); MCV 94.6 fL (80.0-100.0); Mean Platelet Volume 8.1; Monocytes # (A) 0.4 k/uL (0-1.0); Monocytes % (A) 4 %; Neutrophils # (A) 8.5 k/uL (1.3-7.7); Neutrophils % (A) 83 %; Platelet Count 136 k/uL (150-450); RBC 3.91 m/uL (4.30-5.90); RDW 12.4 % (11.5-15.5); WBC 10.3 k/uL (3.8-10.6)
[2019-06-18 13:11] LABS: ALT 28 U/L (21-72); AST 23 U/L (17-59); African American GFR (CKD) >90 (>60 ml/min/1.73 sqM); Albumin 3.5 g/dL (3.5-5.0); Alkaline Phosphatase 101 U/L (38-126); Anion Gap 5 mmol/L; Blood Urea Nitrogen 17 mg/dL (9-20); Calcium 8.7 mg/dL (8.4-10.2); Carbon Dioxide 23 mmol/L (22-30); Chloride 104 mmol/L (98-107); Glucose 329 mg/dL (74-99); INR 0.9 (<1.2); Magnesium 1.8 mg/dL (1.6-2.3); Non-African American GFR(CKD) >90 (>60 ml/min/1.73 sqM); Partial Thromboplastin Time 24.4 sec (22.0-30.0); Potassium 4.2 mmol/L (3.5-5.1); Prothrombin Time 9.7 sec (9.0-12.0); Sodium 132 mmol/L (137-145); Total Protein 6.3 g/dL (6.3-8.2)
--- NOTE | 2019-06-18 13:11 | XR ---
EXAMINATION TYPE: XR chest 2V DATE OF EXAM: 06/18/2019 COMPARISON: 12/13/2018 HISTORY: Chest pain and shortness of breath TECHNIQUE: Frontal and lateral views of the chest are obtained. FINDINGS: New peribronchial cuffing is seen as well as a masslike right infrahilar consolidation on the frontal view. This was not seen on the prior 12/13/2018 and given its short-term interval developm ent could represent pneumonia although underlying nodule is a consideration. Cardia mediastinal silho uette is within normal limits. Osseous structures appear intact. No pleural effusion or pneumothorax seen. IMPRESSION: Findings suggesting bronchitis and masslike right infrahilar consolidation that was not s een on the exam of 12/13/2018 and therefore could represent developing pneumonia. Follow-up is recomme nded to ensure no underlying nodule given the masslike configuration.
--- NOTE | 2019-06-18 13:26 | ED ---
Chest Pain HPI - General Chief Complaint: Chest Pain Stated Complaint: headache, vomiting Time Seen by Provider: 06/18/19 12:10 Source: patient, RN notes reviewed Mode of arrival: ambulatory Limitations: no limitations - History of Present Illness Initial Comments: This a 53-year-old male presents emergency Department with chief complaint of chest pain. Patient states pain started Tuesday last night worsened today. Patient suffered chest pain. He states he feels short of breath at times. Patient states that he has hyperlipidemia, hypertension, diabetes and is a smoker. Patient's had no prior heart attack. Patient also mentioned states that slight nausea and vomiting no diarrhea no constipation. Chills. Patient states with this he's developed a migraine in which he was unable take his normal medications. Patient denies any focal weakness no neck pain or neck stiffness. - Related Data Home Medications Medication Instructions Recorded Confirmed Lisinopril [Zestril] 5 mg PO DAILY 03/20/14 12/13/18 Atorvastatin [Lipitor] 20 mg PO HS 01/05/16 12/13/18 Albuterol Inhaler [Ventolin Hfa 2 puff INHALATION RT-QID PRN 03/25/17 12/13/18 Inhaler] Ranitidine HCl 150 mg PO BID 03/25/17 12/13/18 Fluticasone Nasal [place] [Flonase 1 spray EA NOSTRIL DAILY PRN 04/28/17 12/13/18 Nasal [place]] Phenytoin Sodium Extended 100 mg PO TID 04/28/17 12/13/18 [Dilantin] Baclofen 10 mg PO BID 05/25/17 12/13/18 Insulin Glargine [Lantus] 10 unit SQ BID 08/10/17 12/13/18 Albuterol Nebulized [Ventolin 2.5 mg INHALATION RT-TID PRN 11/17/18 12/13/18 Nebulized] Umeclidinium [place] [Incruse 1 puff INHALATION RT-DAILY 11/17/18 12/13/18 Ellipta] SUMAtriptan SUCCINATE [Imitrex] 50 mg PO BID PRN 11/18/18 12/13/18 Fluticasone/Salmeterol 2 puff INHALATION RT-BID 12/13/18 12/13/18 [Fluticasone-Salmeterol 113-14] Ibuprofen [Motrin] 600 mg PO Q8H PRN 12/13/18 12/13/18 Insulin Lispro [Admelog] 15 unit SQ AC-TID 12/13/18 12/13/18 Loratadine 10 mg PO DAILY 12/13/18 12/13/18 Ondansetron [Zofran] 4 mg PO BID PRN 12/13/18 12/13/18 Previous Rx's Medication Instructions Recorded Amoxic-Pot Clav 875-125Mg 1 tab PO Q12HR #20 tablet 12/01/18 [Augmentin 875-125] Allergies Allergy/AdvReac Type Severity Reaction Status Date / Time cephalexin [From Keflex] AdvReac Nausea & Verified 06/18/19 12:01 Vomiting codeine AdvReac Abdominal Verified 06/18/19 12:01 Pain Review of Systems ROS Statement: Those systems with pertinent positive or pertinent negative responses have been documented in the HPI. ROS Other: All systems not noted in ROS Statement are negative. EKG Findings - EKG Comments: EKG Findings:: EKG performed at 12:23 normal sinus rhythm rate of 79 [place] 162 QRS 88 QT/QTC 400/458 Past Medical History Past Medical History: Diabetes Mellitus, Hyperlipidemia, Hypertension, Seizure Disorder Additional Past Medical History / Comment(s): Closed Head Injury, migraines, History of Any Multi-Drug Resistant Organisms: MRSA Date of last positivie culture/infection: 1999 MDRO Source:: R hip Past Surgical History: Orthopedic Surgery Additional Past Surgical History / Comment(s): right leg Past Psychological History: No Psychological Hx Reported Smoking Status: Current every day smoker Past Alcohol Use History: None Reported Past Drug Use History: Marijuana General Exam Limitations: no limitations General appearance: alert, in no apparent distress Head exam: Present: atraumatic, normocephalic, normal inspection Eye exam: Present: normal appearance, PERRL, EOMI. Absent: scleral icterus, conjunctival injection, periorbital swelling ENT exam: Present: normal exam, normal oropharynx, mucous membranes moist Neck exam: Present: normal inspection, full ROM. Absent: tenderness, meningismus, lymphadenopathy Respiratory exam: Present: wheezes (Mild). Absent: normal lung sounds bilaterally, respiratory distress, rales, rhonchi, stridor Cardiovascular Exam: Present: regular rate, normal rhythm, normal heart sounds. Absent: systolic murmur, diastolic murmur, rubs, gallop, clicks GI/Abdominal exam: Present: soft, normal bowel sounds. Absent: distended, tenderness, guarding, rebound, rigid Neurological exam: Present: alert, oriented X3, CN II-XII intact, reflexes normal. Absent: motor sensory deficit Skin exam: Present: warm, dry, intact, normal color. Absent: rash Course Vital Signs 06/18/19 06/18/19 06/18/19 12:02 13:10 13:20 Temperature 97.6 F Pulse Rate 96 71 80 Respiratory 18 18 Rate Blood Pressure 112/71 120/79 O2 Sat by Pulse 98 100 Oximetry 06/18/19 13:24 Temperature Pulse Rate 82 Respiratory Rate Blood Pressure O2 Sat by Pulse Oximetry Chest Pain MDM - MDM Patient is workup reveals mild hyperglycemia, chest x-ray showed possibility of mass in which CT was reported at this time shows multifocal pneumonia. Patient does have history of hyperlipidemia hypertension diabetes and a smoker with chest pain. Patient be admitted for antibiotics and further evaluation. Disposition Clinical Impression: Chest pain, Multifocal pneumonia Disposition: ADMITTED IP TO THIS HOSP Condition: Fair Referrals: Alexy Evangelista MD [Primary Care Provider] - 1-2 days
--- NOTE | 2019-06-18 14:09 | CT ---
EXAMINATION TYPE: CT chest angio for PE DATE OF EXAM: 06/18/2019 COMPARISON: Chest x-ray of the same date HISTORY: mass, chest pain CT DLP: 324.3 mGycm. Automated Exposure Control for Dose Reduction was Utilized. CONTRAST: CTA scan of the thorax is performed with IV Contrast, patient injected with 100 mL of Isovue 370, pul monary embolism protocol. MIP Images are created on CT scanner and reviewed. FINDINGS: LUNGS: Paraseptal emphysematous changes are seen. Consolidation in the right upper lobe likely repres ents consolidation surrounding multiple blebs versus less likely cavitary lesion. Somewhat rounded mu ltifocal opacities of the right middle lobe and bilateral lower lobes (right greater than left) are l ikely infectious or inflammatory background mild emphysematous change. No pleural effusion or pneumot horax. MEDIASTINUM: There is satisfactory enhancement of the pulmonary artery and its branches, there is no CT evidence for pulmonary embolism. There are no greater than 1 cm hilar or mediastinal lymph nodes. No cardiomegaly or pericardial effusion is seen. OTHER: No additional significant abnormality is seen. IMPRESSION: 1. Multifocal nodular opacities involving the right lower lobe, left lower lobe and right middle lobe and confluent opacity in the right upper lobe likely represent multifocal pneumonia. Given the nodul ar morphology follow-up is recommended in 3 months after treatment to ensure resolution. 2. No evidence of pulmonary embolism.
[2019-06-18] MEDS ORDERED: LEVOFLOXACIN 750MG-D5W PMX 750 MG in DEXTROSE/WATER 1 150ML.BAG IVPB STA (14:15)
[2019-06-18] MEDS ORDERED: PNEUMONIA PROTOCOL UTILIZED 1 EACH MISC PO PRN (14:15)
[2019-06-18] MEDS ORDERED: INSULIN ASPART (NovoLOG) 100 UNIT/ML VIAL SQ ONE (15:37)
[2019-06-18 15:39] LABS: Glucose,Whole Blood 303 mg/dL (75-99)
[2019-06-18] MEDS ORDERED: IPRATROPIUM-ALBUTEROL 3 ML NEB INHALATION SCH (16:00)
[2019-06-18] MEDS ORDERED: IPRATROPIUM 0.5 MG/2.5 ML NEBU INHALATION PRN (16:27)
[2019-06-18] MEDS ORDERED: SUMAtriptan SUCCINATE 50 MG TAB PO PRN (16:27)
[2019-06-18] MEDS ORDERED: ALBUTEROL INHALER 60 PUFF/8 GM INHALER INHALATION PRN (16:27)
[2019-06-18] MEDS ORDERED: ALBUTEROL NEBULIZED 2.5 MG/3 ML INHALATION PRN (16:27)
[2019-06-18] MEDS ORDERED: IPRATROPIUM-ALBUTEROL 3 ML NEB INHALATION PRN (16:49)
[2019-06-18 17:07] LABS: Glucose,Whole Blood 274 mg/dL (75-99)
[2019-06-18] MEDS: INSULIN ASPART (NovoLOG) 100 UNIT/ML VIAL SQ SCH ×3 (17:26→21:19)
[2019-06-18] MEDS: PIPERACILLIN-TAZOBACTAM 3.375 GM in SODIUM CHLORIDE 0.9% 100 ML IVPB SCH (20:15)
[2019-06-18 21:08] LABS: Glucose,Whole Blood 210 mg/dL (75-99)
[2019-06-18] MEDS: HEPARIN SODIUM,PORCINE 5,000 UNIT/ML 1 ML VIAL SQ SCH (21:10)
[2019-06-18] MEDS: BACLOFEN 10 MG TAB PO SCH (21:10)
[2019-06-18] MEDS: FAMOTIDINE 20 MG TAB PO SCH (21:11)
[2019-06-18] MEDS: ATORVASTATIN 20 MG TAB PO SCH (21:11)
[2019-06-18] MEDS: PHENYTOIN SODIUM EXTENDED 100 MG CAP PO SCH (21:11)
[2019-06-18] MEDS: GABAPENTIN 300 MG CAP PO SCH (21:11)
[2019-06-18] MEDS: INSULIN DETEMIR (LEVEMIR) 100 UNIT/ML SYR SQ SCH (21:14)
--- NOTE | 2019-06-18 22:32 | HP ---
HISTORY AND PHYSICAL DATE OF SERVICE: 06/18/2019. CHIEF COMPLAINT: Chest pain. HISTORY OF PRESENT ILLNESS: This is a 53-year-old gentleman with a past medical history of diabetes, hypertension, seizure disorder, closed head injury, migraines, MRSA being followed by Dr. Evangelista in the outpatient setting, not feeling well over the past several days. Patient had increasing shortness of breath and cough. The patient has continued to smoke and because of increasing difficulty, the patient came to [facility] and admitted to the hospital for further evaluation and treatment. Patient also had a headache and vomiting also. The white count is 10.3. Glucose was elevated. A chest x-ray was done which showed masslike right infrahilar consolidation. A CT of the chest was also done. CTA of the chest showed multifocal murtaza opacities involving the right lower lobe, left lower lobe and right middle lobe and confirmed in the right upper lobe indicating multifocal pneumonia and the patient admitted for further evaluation and treatment. There is no history of fever, rigors or chills. No history of headache, loss of consciousness or seizures at this time. PAST MEDICAL HISTORY: Past medical history of diabetes, hypertension, seizure disorder, closed head injury, migraines, MRSA. MEDICATIONS: Prior to admission include home medications are: 1. Incruse Ellipta 1 daily. 2. Imitrex 50 mg b.i.d. p.r.n. 3. Dilantin 100 mg p.o. t.i.d. 4. Loratadine 10 mg p.o. daily. 5. Zestril 5 mg p.o. daily. 6. Ativan 0.5 mg t.i.d. p.r.n. 7. Lispro 10 units a.c. t.i.d. 8. Lantus 50 units subcu b.i.d. 9. Neurontin 300 mg p.o. b.i.d. 10.Fluticasone salmeterol 2 puffs b.i.d. 11.Famotidine 20 mg p.o. b.i.d. 12.Baclofen 10 mg p.o. b.i.d. 13.Lipitor 20 mg q.h.s. 14.Ventolin 2.5 q.i.d. t.i.d. p.r.n. 15.Ventolin HFA 2 puffs q.i.d. p.r.n. ALLERGIES: KEFLEX AND CODEINE. FAMILY HISTORY: History of cancer in the family. SOCIAL HISTORY: History of smoking, continued ongoing. History of THC. REVIEW OF SYSTEMS: ENT: No diminished vision. No diminished hearing. CARDIOVASCULAR: S1, S2. RESPIRATORY SYSTEM: As mentioned earlier. GI no nausea or vomiting. no dysuria or hematuria. Nervous system: No numbness or weakness. Allergy/Immunology: No asthma or hayfever. Musculoskeletal as mentioned earlier. HEMATOLOGY/ONCOLOGY: No history of anemia. ENDOCRINE: Diabetes. CONSTITUTIONAL: As mentioned earlier. DERMATOLOGY: Negative. RHEUMATOLOGY: Negative. PSYCHIATRY: As mentioned earlier. PHYSICAL EXAMINATION: Alert and oriented x3. Pulse is 76. Blood pressure 120/70, respirations 16, temperature 98 degrees, pulse ox 97% on room air. HEENT: Conjunctivae normal. NECK: No JVD. CARDIOVASCULAR: S1, S2 muffled. RESPIRATORY SYSTEM: Breath sounds diminished at the bases. Scattered rhonchi and crackles. ABDOMEN: Soft, nontender. Legs are no edema. No swelling. CENTRAL NERVOUS SYSTEM: No focal deficits. LAB STUDIES: WBC 10.3, hemoglobin 12.4, sodium 132, glucose 329. ASSESSMENT: 1. Acute multifocal pneumonia, rule out cavitation cavitary pneumonia with failure of outpatient treatment. 2. Diabetes mellitus type 2, uncontrolled with hyperglycemia. 3. Anemia, normocytic anemia of chronic disease. 4. Mild thrombocytopenia. 5. Hypertension. 6. Hyperlipidemia. 7. History of seizure disorder. 8. History of closed-head injury. 9. History of migraine. 10.History of MRSA. 11.History of degenerative joint disease. 12.Continued ongoing nicotine dependence. 13.History of THC. RECOMMENDATIONS AND DISCUSSION: This 53-year-old gentleman who presented with multiple complex medical issues, we will monitor the patient closely, continue the current medications, management and symptomatic treatment. We will initiate broad-spectrum IV antibiotics. Obtain cultures. Sputum culture. Pulmonary consultation. Resume the home medications. DVT prophylaxis. Monitor blood sugars closely. Prognosis guarded because of multiple complex medical issues. Exact etiology of the multiple lesions are unknown at this time. I would also recommend C-ANCA and p-ANCA testing as well. Otherwise DESMOND testing also. The prognosis guarded. Further recommendations to follow. Discussed with the patient who understands and agrees. Influenza testing also ordered. MMODL / IJN: [id number] / [place]
[2019-06-18] MEDS: SALMETEROL INHALATION SCH (23:18)
[2019-06-18] MEDS: FLUTICASONE INHALATION SCH (23:18)
[2019-06-19] MEDS: PIPERACILLIN-TAZOBACTAM 3.375 GM in SODIUM CHLORIDE 0.9% 100 ML IVPB SCH ×3 (03:17→19:57)
[2019-06-19 07:16] LABS: Glucose,Whole Blood 64 mg/dL (75-99)
[2019-06-19 07:28] LABS: Basophils % (A) 0 %; Eosinophils # (A) 0.1 k/uL (0-0.7); Eosinophils % (A) 2 %; Lymphocytes # (A) 1.4 k/uL (1.0-4.8); Lymphocytes % (A) 26 %; MCH 31.1 pg (25.0-35.0); MCHC 32.5 g/dL (31.0-37.0); MCV 95.9 fL (80.0-100.0); Mean Platelet Volume 7.6; Monocytes # (A) 0.3 k/uL (0-1.0); Monocytes % (A) 6 %; Neutrophils # (A) 3.4 k/uL (1.3-7.7); Neutrophils % (A) 65 %; Platelet Count 139 k/uL (150-450); RBC 3.86 m/uL (4.30-5.90); RDW 12.4 % (11.5-15.5); WBC 5.3 k/uL (3.8-10.6)
[2019-06-19] MEDS ORDERED: PANTOPRAZOLE 40 MG TABLET PO SCH (07:30)
[2019-06-19 07:36] LABS: African American GFR (CKD) >90 (>60 ml/min/1.73 sqM); Anion Gap 5 mmol/L; Blood Urea Nitrogen 17 mg/dL (9-20); Calcium 8.4 mg/dL (8.4-10.2); Carbon Dioxide 24 mmol/L (22-30); Chloride 110 mmol/L (98-107); Glucose 52 mg/dL (74-99); Non-African American GFR(CKD) >90 (>60 ml/min/1.73 sqM); Potassium 3.8 mmol/L (3.5-5.1); Sodium 139 mmol/L (137-145)
[2019-06-19 07:39] LABS: Glucose,Whole Blood 91 mg/dL (75-99)
[2019-06-19] MEDS: INSULIN ASPART (NovoLOG) 100 UNIT/ML VIAL SQ SCH ×7 (07:48→21:17)
[2019-06-19] MEDS: LEVOFLOXACIN 500MG-D5W PMX 500 MG in DEXTROSE/WATER 1 100ML.BAG IVPB SCH (08:11)
[2019-06-19] MEDS: HEPARIN SODIUM,PORCINE 5,000 UNIT/ML 1 ML VIAL SQ SCH ×2 (08:11→21:17)
[2019-06-19] MEDS: LORATADINE 10 MG TAB PO SCH (08:11)
[2019-06-19] MEDS: GABAPENTIN 300 MG CAP PO SCH ×2 (08:11→21:17)
[2019-06-19] MEDS: LISINOPRIL 5 MG TAB PO SCH (08:11)
[2019-06-19] MEDS: BACLOFEN 10 MG TAB PO SCH ×2 (08:11→21:17)
[2019-06-19] MEDS: FAMOTIDINE 20 MG TAB PO SCH ×2 (08:11→21:17)
[2019-06-19] MEDS: PHENYTOIN SODIUM EXTENDED 100 MG CAP PO SCH ×3 (08:11→21:17)
[2019-06-19] MEDS: INSULIN DETEMIR (LEVEMIR) 100 UNIT/ML SYR SQ SCH ×2 (08:12→21:18)
[2019-06-19] MEDS: IPRATROPIUM-ALBUTEROL 3 ML NEB INHALATION PRN ×3 (08:18→19:41)
[2019-06-19] MEDS: IPRATROPIUM 0.5 MG/2.5 ML NEBU INHALATION SCH ×4 (08:18→19:42)
--- NOTE | 2019-06-19 08:58 | XR ---
EXAMINATION TYPE: XR chest 2V DATE OF EXAM: 06/19/2019 COMPARISON: Chest x-ray and CTA chest from yesterday. HISTORY: Pneumonia. TECHNIQUE: Frontal and lateral views of the chest are obtained. FINDINGS: There is background chronic emphysematous change. Areas of multifocal groundglass and reti culonodular opacities on CT less well seen on x-ray. Persistent lateral right upper lung consolidatio n. Persistent right lower lobe focal consolidation or overlying EKG leads. No pleural effusion or pne umothorax bilaterally. The cardiac silhouette size remains within normal limits. The osseous struct ures are intact. IMPRESSION: Bilateral multifocal acute infiltrates are thought to remain present. .
--- NOTE | 2019-06-19 10:28 | P.CNPUL ---
History of Present Illness Consult date: 06/19/19 Requesting physician: Gregg Lee Reason for consult: dyspnea, cough, chest pain Chief complaint: Severe coughing spells, dyspnea and right-sided chest pain History of present illness: This is a 53-year-old white male patient of Dr. Evangelista, with past medical history of diabetes mellitus type 2, hypertension, hyperlipidemia, seizure disorder, closed head injury, migraine headaches, current every day 6 smoker, carries [id number] smoking history, MRSA infection, and marijuana use. Patient pre sented to the emergency department 06/18/2019 with complaints of severe coughing spells, chills, and right-sided sharp chest discomfort with coughing and deep breathing. Patient states he has been having increased coughing and chills for last few days. He was taking left over antibiotics from last summer that was given to him by his PCP for infection related to a cat bite. He was unsure what he was taking. He states his cough is dry, and he is not able to clear any sputum, denied any hemoptysis. Chest x-ray showed peribronchial cuffing, and masslike right infrahilar consolidation, that was not previously present from the chest x-ray in November 2018. CT angios Chest showed multifocal nodular opacities involving the right lower lobe, left lower lobe and right middle lobe and confluent opacity in the right upper lobe likely representing multifocal pneumonia. No evidence of pulmonary embolism. Admission lab work showed a white blood cell count of 10.3, hemoglobin is 12.5, coagulation profile was within normal limits, sodium was 132, the rest of the left with a renal profile were within normal limits, serum glucose was 329, troponins were negative 3, 50s were within normal limits, proBNP was normal at 90, influenza screen was nondetected. DESMOND screen was positive. Admits to 25 pound weight loss in the last month. Patient has been afebrile while in the hospital, his pulse ox is 98% on room air, he is hemodynamically stable, seems fairly comfortable other than occasional chest pain right side of his chest with deep breathing and coughing, he was started on empiric Levaquin and Zosyn, was given a liter bolus in the emergency department and was admitted for further management. Review of Systems All systems: negative Constitutional: Reports chills, Reports weight loss, Denies fever Eyes: denies blurred vision, denies pain Ears, nose, mouth and throat: Denies headache, Denies sore throat Cardiovascular: Reports chest pain, Denies shortness of breath Respiratory: Reports dyspnea, Denies cough Gastrointestinal: Denies abdominal pain, Denies diarrhea, Denies nausea, Denies vomiting Musculoskeletal: Denies myalgias Integumentary: Denies pruritus, Denies rash Neurological: Denies numbness, Denies weakness Psychiatric: Denies anxiety, Denies depression Endocrine: Denies fatigue, Denies weight change Past Medical History Past Medical History: Diabetes Mellitus, Hyperlipidemia, Hypertension, Seizure Disorder Additional Past Medical History / Comment(s): Closed Head Injury, migraines History of Any Multi-Drug Resistant Organisms: MRSA Date of last positivie culture/infection: 1999 MDRO Source:: R hip Past Surgical History: Orthopedic Surgery Additional Past Surgical History / Comment(s): right leg Past Anesthesia/Blood Transfusion Reactions: No Reported Reaction Past Psychological History: No Psychological Hx Reported Additional Psychological History / Comment(s): single. Lives with family. No travel Smoking Status: Current every day smoker Past Alcohol Use History: None Reported Past Drug Use History: Marijuana - Past Family History Father Family Medical History: Cancer Mother Family Medical History: Cancer Medications and Allergies Home Medications Medication Instructions Recorded Confirmed Type Lisinopril [Zestril] 5 mg PO DAILY 03/20/14 06/18/19 History Atorvastatin [Lipitor] 20 mg PO HS 01/05/16 06/18/19 History Albuterol Inhaler [Ventolin Hfa 2 puff INHALATION RT-QID PRN 03/25/17 06/18/19 History Inhaler] Phenytoin Sodium Extended 100 mg PO TID 04/28/17 06/18/19 History [Dilantin] Baclofen 10 mg PO BID 05/25/17 06/18/19 History Insulin Glargine [Lantus] 15 unit SQ BID 08/10/17 06/18/19 History Albuterol Nebulized [Ventolin 2.5 mg INHALATION RT-TID PRN 11/17/18 06/18/19 History Nebulized] Umeclidinium [place] [Incruse 1 puff INHALATION RT-DAILY 11/17/18 06/18/19 History Ellipta] SUMAtriptan SUCCINATE [Imitrex] 50 mg PO BID PRN 11/18/18 06/18/19 History Fluticasone/Salmeterol 2 puff INHALATION RT-BID 12/13/18 06/18/19 History [Fluticasone-Salmeterol 113-14] Insulin Lispro [Admelog] 10 unit SQ AC-TID 12/13/18 06/18/19 History Loratadine 10 mg PO DAILY 12/13/18 06/18/19 History Famotidine 20 mg PO BID 06/18/19 06/18/19 History Gabapentin [Neurontin] 300 mg PO BID 06/18/19 06/18/19 History Ipratropium Nebulized [Atrovent 0.5 mg INHALATION RT-TID PRN 06/18/19 06/18/19 History Nebulized 0.2 MG/ML] Allergies Allergy/AdvReac Type Severity Reaction Status Date / Time cephalexin [From Keflex] AdvReac Nausea & Verified 06/18/19 12:01 Vomiting codeine AdvReac Abdominal Verified 06/18/19 12:01 Pain Physical Exam Vitals: Vital Signs Temp Pulse Pulse Resp BP BP Pulse Ox 06/19/19 08:28 76 06/19/19 08:20 72 06/19/19 06:10 98.0 F 74 18 131/83 98 06/19/19 01:35 97.5 F L 73 136/79 99 06/18/19 20:15 16 06/18/19 19:41 99 06/18/19 19:15 97.8 F 70 18 105/58 99 06/18/19 17:00 98.0 F 76 16 120/70 97 06/18/19 16:50 18 06/18/19 16:10 76 06/18/19 16:02 80 06/18/19 15:31 99.4 F 76 18 130/79 95 06/18/19 13:24 82 06/18/19 13:20 80 18 120/79 100 06/18/19 13:10 71 06/18/19 12:02 97.6 F 96 18 112/71 98 Intake and Output 06/18/19 06/19/19 06/19/19 22:59 06:59 14:59 Intake Total 200 Balance 200 Intake: Oral 200 Other: Voiding Method Toilet Toilet # Voids 1 2 Weight 61.235 kg GENERAL EXAM: Alert, pleasant, 53-year-old white male in room air, with a pulse ox of 98% comfortable in no apparent distress. HEAD: Normocephalic/atraumatic. EYES: Normal reaction of pupils, equal size. Conjunctiva pink, sclera white. NOSE: Clear with pink turbinates. THROAT: No erythema or exudates. NECK: No masses, no JVD, no thyroid enlargement, no adenopathy. CHEST: No chest wall deformity. Symmetrical expansion. LUNGS: Equal air entry with coarse inspiratory crackles over right lower mid and upper lung, posteriorly, overall diminished breath sounds bilaterally CVS: Regular rate and rhythm, normal S1 and S2, no gallops, no murmurs, no rubs ABDOMEN: Soft, nontender. No hepatosplenomegaly, normal bowel sounds, no guarding or rigidity. EXTREMITIES: No clubbing, no edema, no cyanosis, 2+ pulses and upper and lower extremities. MUSCULOSKELETAL: Muscle strength and tone normal. SPINE: No scoliosis or deformity SKIN: No rashes CENTRAL NERVOUS SYSTEM: Alert and oriented -3. No focal deficits, tone is normal in all 4 extremities. PSYCHIATRIC: Alert and oriented -3. Appropriate affect. Intact judgment and insight. Results - Laboratory Findings CBC and BMP: 06/19/19 06:52 06/19/19 06:52 PT/INR, D-dimer PT 9.7 sec (9.0-12.0) 06/18/19 12:45 INR 0.9 (<1.2) 06/18/19 12:45 Abnormal lab findings: Abnormal Labs 06/18/19 06/18/19 06/18/19 12:45 12:45 15:36 RBC 3.91 L Hgb 12.5 L Hct 37.0 L Plt Count 136 L Neutrophils # 8.5 H ESR Sodium 132 L Chloride Glucose 329 H POC Glucose (mg/dL) 303 H C-Reactive Protein DESMOND Screen 06/18/19 06/18/19 06/18/19 17:05 19:10 19:10 RBC Hgb Hct Plt Count Neutrophils # ESR 22 H Sodium Chloride Glucose POC Glucose (mg/dL) 274 H C-Reactive Protein 43.0 H DESMOND Screen 06/18/19 06/18/19 06/19/19 19:10 21:07 06:52 RBC 3.86 L Hgb 12.0 L Hct 37.0 L Plt Count 139 L Neutrophils # ESR Sodium Chloride Glucose POC Glucose (mg/dL) 210 H C-Reactive Protein DESMOND Screen POSITIVE H 06/19/19 06/19/19 06:52 07:12 RBC Hgb Hct Plt Count Neutrophils # ESR Sodium Chloride 110 H Glucose 52 L POC Glucose (mg/dL) 64 L C-Reactive Protein DESMOND Screen - Diagnostic Findings Chest x-ray: report reviewed, image reviewed CT scan - chest: report reviewed, image reviewed Assessment and Plan Assessment: Assessment: #1. Possibility of acute multifocal pneumonia involving both lungs, CT angios chest showed multifocal nodular opacities involving the right lower lobe, left lower lobe and right middle lobe and confluent opacity in the right upper lobe. No evidence of pulmonary embolism #2. Sharp pleuritic right-sided chest pain and severe coughing spells related to the above, troponins were negative #3. [id number] smoking history, continues to smoke #5. 25 pound weight loss in the last month #4. Hypertension #5. Hyperlipidemia #6. Diabetes mellitus type 2, insulin-dependent #7. Close head injury and seizure disorder #8. Migraine headaches #9. Previous history of MRSA infection #10. Marijuana use, edibles and smoking #11. History of degenerative joint disease Plan: Continue with Levaquin and Zosyn, we'll try to send a sputum culture, procalcitonin level, no fever or chills, no leukocytosis, CT angios chest was reviewed showing multifocal nodular opacities, that could represent multifocal pneumonia. Patient also admits to 25 pound weight loss in the last month, has extensive history of smoking. He may need a bronchoscopy with biopsies. Continue breathing treatments, will start Symbicort, patient is normally on Advair and Inkruse Ellipta. Patient is also having difficulty with health insu michael coverage, and is currently uninsured. Social work will be consulted. I performed a history & physical examination of the patient and discussed their management with my nurse practitioner, Maribell Leyva. I reviewed the nurse practitioner's note and agree with the documented findings and plan of care. Lung sounds are positive for inspiratory crackles. The findings and the impression was discussed with the patient. I attest to the documentation by the nurse practitioner. Time with Patient: Greater than 30
[2019-06-19 11:02] LABS: Glucose,Whole Blood 186 mg/dL (75-99)
[2019-06-19 11:35] LABS: ANA Pattern Speckled
[2019-06-19] MEDS: FLUTICASONE INHALATION SCH ×2 (14:50→21:06)
[2019-06-19] MEDS: SALMETEROL INHALATION SCH ×2 (14:50→21:06)
[2019-06-19 16:55] LABS: Glucose,Whole Blood 188 mg/dL (75-99)
--- NOTE | 2019-06-19 19:26 | PN ---
PROGRESS NOTE DATE OF SERVICE: 06/19/2019. This 53-year-old gentleman who was admitted with acute multifocal pneumonia is being closely monitored. Pulmonary is following the patient closely. Dr. Molina has seen the patient. Chest CTA was reviewed. No chest pain. No palpitations. No fever. EXAM: Alert and oriented times three. Pulse 85. Blood pressure 120/70, respiration 20, temperature 97.8, pulse ox 97% on room air. HEENT is conjunctivae normal. Neck: No JVD. Cardiovascular: S1, S2. RESPIRATORY: Breath sounds diminished in the bases. Bilateral scattered rhonchi and crackles. ABDOMEN are soft, nontender. No mass palpable. Legs are no edema. No swelling. CENTRAL NERVOUS SYSTEM: No focal deficits. LABS: Noted. C-reactive protein is 43. DESMOND is positive, is only possibly 1 in 80 with a speckled pattern. ASSESSMENT: 1. Acute multifocal pneumonia, rule out cavitation and early cavitary pneumonia with failure of outpatient treatment. 2. Diabetes mellitus type 2, uncontrolled with hyperglycemia. 3. Anemia, normocytic anemia of chronic disease. 4. Mild thrombocytopenia. 5. Hypertension. 6. Hyperlipidemia. 7. History of seizure disorder. 8. History of closed-head injury. 9. History of migraine. 10.History of MRSA. 11.History of degenerative joint disease. 12.Continued ongoing nicotine dependence. 13.History of THC. RECOMMENDATIONS AND DISCUSSION: Recommend to continue current medications, symptomatic treatment. Otherwise, at this time, I would continue with antibiotics. Closely follow with Pulmonary. Guarded prognosis. Further recommendations to follow. MMODL / IJN: [id number] /
[2019-06-19] MEDS ORDERED: SYMBICORT 160-4.5 MCG INHALER INHALATION SCH (20:00)
[2019-06-19 20:58] LABS: Glucose,Whole Blood 142 mg/dL (75-99)
[2019-06-19] MEDS: ATORVASTATIN 20 MG TAB PO SCH (21:17)
[2019-06-20] MEDS: PIPERACILLIN-TAZOBACTAM 3.375 GM in SODIUM CHLORIDE 0.9% 100 ML IVPB SCH ×3 (03:21→18:03)
[2019-06-20 06:48] LABS: Glucose,Whole Blood 393 mg/dL (75-99)
[2019-06-20 07:25] LABS: Basophils % (A) 0 %; Eosinophils # (A) 0.2 k/uL (0-0.7); Eosinophils % (A) 3 %; HCT 34.8 % (39.0-53.0); HGB 11.9 gm/dL (13.0-17.5); Lymphocytes # (A) 1.3 k/uL (1.0-4.8); Lymphocytes % (A) 27 %; MCH 32.6 pg (25.0-35.0); MCHC 34.1 g/dL (31.0-37.0); MCV 95.6 fL (80.0-100.0); Mean Platelet Volume 6.9; Monocytes # (A) 0.3 k/uL (0-1.0); Monocytes % (A) 6 %; Neutrophils # (A) 2.9 k/uL (1.3-7.7); Neutrophils % (A) 62 %; Platelet Count 155 k/uL (150-450); RBC 3.64 m/uL (4.30-5.90); RDW 12.5 % (11.5-15.5); WBC 4.7 k/uL (3.8-10.6)
[2019-06-20] MEDS: IPRATROPIUM 0.5 MG/2.5 ML NEBU INHALATION SCH ×4 (07:32→19:16)
[2019-06-20 07:57] LABS: African American GFR (CKD) >90 (>60 ml/min/1.73 sqM); Anion Gap 8 mmol/L; Blood Urea Nitrogen 17 mg/dL (9-20); Calcium 8.6 mg/dL (8.4-10.2); Carbon Dioxide 20 mmol/L (22-30); Chloride 108 mmol/L (98-107); Glucose 375 mg/dL (74-99); Non-African American GFR(CKD) >90 (>60 ml/min/1.73 sqM); Potassium 4.7 mmol/L (3.5-5.1); Sodium 136 mmol/L (137-145)
[2019-06-20] MEDS: GABAPENTIN 300 MG CAP PO SCH ×2 (08:07→20:22)
[2019-06-20] MEDS: HEPARIN SODIUM,PORCINE 5,000 UNIT/ML 1 ML VIAL SQ SCH ×2 (08:07→20:21)
[2019-06-20] MEDS: BACLOFEN 10 MG TAB PO SCH ×2 (08:07→20:22)
[2019-06-20] MEDS: INSULIN DETEMIR (LEVEMIR) 100 UNIT/ML SYR SQ SCH ×2 (08:08→20:37)
[2019-06-20] MEDS: LORATADINE 10 MG TAB PO SCH (08:08)
[2019-06-20] MEDS: INSULIN ASPART (NovoLOG) 100 UNIT/ML VIAL SQ SCH ×7 (08:08→20:37)
[2019-06-20] MEDS: LISINOPRIL 5 MG TAB PO SCH (08:08)
[2019-06-20] MEDS: FAMOTIDINE 20 MG TAB PO SCH ×2 (08:08→20:22)
[2019-06-20] MEDS: LEVOFLOXACIN 500MG-D5W PMX 500 MG in DEXTROSE/WATER 1 100ML.BAG IVPB SCH (08:09)
[2019-06-20] MEDS: PHENYTOIN SODIUM EXTENDED 100 MG CAP PO SCH ×3 (08:11→22:35)
--- NOTE | 2019-06-20 10:27 | P.PN ---
Subjective Progress Note Date: 06/20/19 Principal diagnosis: Multifocal nodular infiltrates involving both lungs, cough, right-sided chest pain This is a 53-year-old white male patient of Dr. Evangelista, with past medical history of diabetes mellitus type 2, hypertension, hyperlipidemia, seizure disorder, closed head injury, migraine headaches, current every day 6 smoker, carries [id number] smoking history, MRSA infection, and marijuana use. Patient presented to the emergency department 06/18/2019 with complaints of severe coughing spells, chills, and right-sided sharp chest discomfort with coughing and deep breathing. Patient states he has been having increased coughing and chills for last few days. He was taking left over antibiotics from last summer that was given to him by his PCP for infection related to a cat bite. He was unsure what he was taking. He states his cough is dry, and he is not able to c lear any sputum, denied any hemoptysis. Chest x-ray showed peribronchial cuffing, and masslike right infrahilar consolidation, that was not previously present from the chest x-ray in November 2018. CT angios Chest showed multifocal nodular opacities involving the right lower lobe, left lower lobe and right middle lobe and confluent opacity in the right upper lobe likely representing multifocal pneumonia. No evidence of pulmonary embolism. Admission lab work showed a white blood cell count of 10.3, hemoglobin is 12.5, coagulation profile was within normal limits, sodium was 132, the rest of the left with a renal profile were within normal limits, serum glucose was 329, troponins were negative 3, 50s were within normal limits, proBNP was normal at 90, influenza screen was nondetected. DESMOND screen was positive. Admits to 25 pound weight loss in the last month. Patient has been afebrile while in the hospital, his pulse ox is 98% on room air, he is hemodynamically stable, seems fairly comfortable other than occasional chest pain right side of his chest with deep breathing and coughing, he was started on empiric Levaquin and Zosyn, was given a liter bolus in the emergency department and was admitted for further management. On 06/20/2019 patient seen in follow-up on medical surgical floor. He is resting comfortably in bed, he denies any right-sided chest pain today, denies any shortness of breath, vital signs are stable, he has been afebrile, room air pulse ox is 99%. No significant cough or phlegm production, no hemoptysis. He was unable to produce a sputum specimen for culture, his been nothing by mouth after midnight and she scheduled for bronchoscopy with possibility of transbronchial biopsies. Pro-calcitonin level came back low suggesting that the abnormalities noted on the chest x-ray and that CAT scan of the chest are not related to an infectious etiology. DESMOND titer and p-ANCA were elevated suggesting possibility of connective tissue disease involving the lungs such as granulomatosis with polyangiitis. Objective - Vital Signs Vital signs: Vital Signs Temp 98.0 F 06/20/19 08:11 Pulse 69 06/20/19 08:11 Resp 17 06/20/19 08:11 BP 132/81 06/20/19 08:11 Pulse Ox 99 06/20/19 08:11 Intake & Output 06/19/19 06/20/19 06/20/19 18:59 06:59 18:59 Intake Total 200 440 Output Total 120 Balance 200 320 Intake: Intake, IV Titration 200 Amount Piperacillin-Tazobactam 3 200 .375 gm In Sodium Chloride 0.9% 100 ml @ 25 mls/hr IVPB Q8H [facility] Rx#: [id number] Oral 200 240 Output: Urine 120 Other: Voiding Method Toilet Toilet # Voids 2 2 - Exam GENERAL EXAM: Alert, pleasant, 53-year-old white male in room air, with a pulse ox of 98% comfortable in no apparent distress. HEAD: Normocephalic/atraumatic. EYES: Normal reaction of pupils, equal size. Conjunctiva pink, sclera white. NOSE: Clear with pink turbinates. THROAT: No erythema or exudates. NECK: No masses, no JVD, no thyroid enlargement, no adenopathy. CHEST: No chest wall deformity. Symmetrical expansion. LUNGS: Equal air entry with coarse inspiratory crackles over right lower mid and upper lung, posteriorly, overall diminished breath sounds bilaterally CVS: Regular rate and rhythm, normal S1 and S2, no gallops, no murmurs, no rubs ABDOMEN: Soft, nontender. No hepatosplenomegaly, normal bowel sounds, no guarding or rigidity. EXTREMITIES: No clubbing, no edema, no cyanosis, 2+ pulses and upper and lower extremities. MUSCULOSKELETAL: Muscle strength and tone normal. SPINE: No scoliosis or deformity SKIN: No rashes CENTRAL NERVOUS SYSTEM: Alert and oriented -3. No focal deficits, tone is normal in all 4 extremities. PSYCHIATRIC: Alert and oriented -3. Appropriate affect. Intact judgment and insight. - Labs CBC & Chem 7: 06/20/19 07:07 06/20/19 07:07 Labs: Abnormal Lab Results - Last 24 Hours (Table) 06/19/19 06/19/19 06/19/19 Range/Units 11:00 16:54 20:57 RBC (4.30-5.90) m/uL Hgb (13.0-17.5) gm/dL Hct (39.0-53.0) % Sodium (137-145) mmol/L Chloride (98-107) mmol/L Carbon Dioxide (22-30) mmol/L Glucose (74-99) mg/dL POC Glucose (mg/dL) 186 H 188 H 142 H (75-99) mg/dL 06/20/19 06/20/19 06/20/19 Range/Units 06:47 07:07 07:07 RBC 3.64 L (4.30-5.90) m/uL Hgb 11.9 L (13.0-17.5) gm/dL Hct 34.8 L (39.0-53.0) % Sodium 136 L (137-145) mmol/L Chloride 108 H (98-107) mmol/L Carbon Dioxide 20 L (22-30) mmol/L Glucose 375 H (74-99) mg/dL POC Glucose (mg/dL) 393 H (75-99) mg/dL Microbiology - Last 24 Hours (Table) 06/19/19 14:25 Gram Stain - Preliminary Sputum 06/18/19 14:47 Blood Culture - Preliminary Blood No Growth after 24 hours Assessment and Plan Assessment: Assessment: #1. Multifocal nodular opacities involving the right lower lobe, left lower lobe and right middle lobe and confluent opacity in the right upper lobe with the possibility of underlying pneumonia although it is not likely given the low pro-calcitonin level. Rule out connective tissue disorder such as granulomatosis with polyangiitis based on elevated DESMOND and p-ANCA. No evidence of pulmonary embolism #2. Sharp pleuritic right-sided chest pain and severe coughing spells related to the above, troponins were negative #3. [id number] smoking history, continues to smoke #5. 25 pound weight loss in the last month #4. Hypertension #5. Hyperlipidemia #6. Diabetes mellitus type 2, insulin-dependent #7. Close head injury and seizure disorder #8. Migraine headaches #9. Previous history of MRSA infection #10. Marijuana use, edibles and smoking #11. History of degenerative joint disease Plan: Continue current medical treatment, continue IV steroids, no complaints of chest pain, no complaints of coughing spells, no phlegm production, patient's DESMOND and ANCA titers are elevated, suggesting possibility of underlying connective tissue disorder involving the lungs, possibly related to granulomatosis with polyangiitis. We'll proceed with bronchoscopy with BAL and biopsies. Send urinalysis, obtain ESR level. We'll continue to follow I performed a history & physical examination of the patient and discussed their management with my nurse practitioner, Maribell Leyva. I reviewed the nurse practitioner's note and agree with the documented findings and plan of care. Lung sounds are positive for inspiratory crackles. The findings and the impression was discussed with the patient. I attest to the documentation by the nurse practitioner. Time with Patient: Less than 30
[2019-06-20 11:43] LABS: Glucose,Whole Blood 179 mg/dL (75-99)
[2019-06-20] MEDS ORDERED: PROPOFOL 10 MG/ML 20 ML VIAL IV ONE (12:32)
[2019-06-20] MEDS ORDERED: IV FLUID CONTINUATION 900 ML IV ONE (12:34)
[2019-06-20] MEDS ORDERED: LIDOCAINE 2% INJ 20 MG/ML INTRATRACH ONE (12:58)
--- NOTE | 2019-06-20 13:34 | FL ---
EXAMINATION TYPE: FL bronchoscopy DATE OF EXAM: 06/20/2019 CLINICAL HISTORY: Fluoroscopic documentation during bronchoscopy and biopsy TECHNIQUE: Fluoroscopy. COMPARISON: None. FINDINGS: Fluoroscopic guidance was provided during procedure performed by Dr. Molina. A total of 1 0 seconds of fluoroscopic time was utilized during the procedure and 1 spot images was acquired. IMPRESSION: As Above.
[2019-06-20 14:06] LABS: C-ANCA <1:20 Titer (<1:20)
--- NOTE | 2019-06-20 14:07 | XR ---
EXAMINATION TYPE: XR chest 1V portable DATE OF EXAM: 06/20/2019 COMPARISON: 06/19/2019 HISTORY: That is post bronchoscopy with right site of biopsy TECHNIQUE: Single frontal view of the chest is obtained. FINDINGS: Improved multifocal patchy opacities. There is no pulmonary vascular congestion, pleural ef fusion, or pneumothorax seen. The cardiac silhouette size is within normal limits. Old healed right rib fracture posteriorly. The osseous structures are intact. IMPRESSION: Nopostprocedural pneumothorax status post bronchoscopy and right-sided biopsy. Overall i mproved aeration of the lungs.
--- NOTE | 2019-06-20 15:18 | PCN ---
PROCEDURE NOTE PROCEDURE PERFORMED: Bronchoscopy, bronchoalveolar lavage of the right lower lobe, clearing of secretions from the left lower lobe, and multiple transbronchial biopsies done under fluoroscopy of the right lower lobe. PREOPERATIVE DIAGNOSIS: Pneumonia with nodular infiltrates. POSTOPERATIVE DIAGNOSIS: Pneumonia. The differential diagnosis includes granulomatous disease, malignancy, and/or organizing pneumonia. ANESTHESIA USED: IV conscious sedation. PROCEDURE DESCRIPTION: The patient was prepared according to the bronchoscopy protocol. He was brought into the bronchoscopy suite, placed in a supine position, given IV conscious sedation, and we monitored in the meantime his O2 saturation continuously, cardiac rhythm was continuously monitored, blood pressure was intermittently monitored. After adequate IV conscious sedation, the bronchoscope was inserted through the right naris, down to the area of the vocal cords. Vocal cords were noted to be patent and free of any lesions. Lidocaine was applied over the vocal cords, and the bronchoscope was advanced further down to the trachea. There was a thorough examination done of the trachea, christiano, right upper lobe, right middle lobe, right lower lobe, left upper lobe, lingula and left lower lobe. There was definitely evidence of purulent secretions, especially in the right lower lobe and the left lower lobe. Lavage of the right lower lobe was done, and the lavage fluid was sent for different diagnostic studies. Then, the secretions, which were noted to be purulent in the left lower lobe and lingula were also cleared by suctioning and those were discarded. Then, under fluoroscopy guidance, multiple transbronchial biopsies were done, mostly of the lateral segment of the right lower lobe, and these were done under fluoroscopy guidance. There was hardly any blood loss, the bronchoscopy and transbronchial biopsies were done uneventfully, procedure was well tolerated, and no complications. Chest x-ray was ordered postoperatively to rule out pneumothorax. MMODL / IJN: [id number] /
[2019-06-20 16:59] LABS: Glucose,Whole Blood 114 mg/dL (75-99)
[2019-06-20 18:22] LABS: Appearance,Urine Clear (Clear); Bilirubin,Urine Negative (Negative); Blood,Urine Negative (Negative); Color,Urine Yellow; Glucose,Urine (UA) 4+ (Negative); Ketones,Urine Negative (Negative); Leukocyte Esterase,Urine Negative (Negative); Nitrite,Urine Negative (Negative); PH, Urine 5.5 (5.0-8.0); Protein,Urine Negative (Negative); Specific Gravity,Urine 1.025 (1.001-1.035); Urobilinogen,Urine <2.0 mg/dL (<2.0)
[2019-06-20] MEDS: FLUTICASONE INHALATION SCH ×2 (20:12→22:35)
[2019-06-20] MEDS: SALMETEROL INHALATION SCH ×2 (20:12→22:35)
[2019-06-20] MEDS: ATORVASTATIN 20 MG TAB PO SCH (20:22)
[2019-06-20 20:31] LABS: Glucose,Whole Blood 462 mg/dL (75-99)
[2019-06-20 21:27] LABS: Appearance,BF Cloudy; Color,BF Colorless; Nucleated Cells, Body Fluid 270 /uL; RBC, Body Fluid 0 /uL
[2019-06-20 21:29] LABS: Glucose,Whole Blood 425 mg/dL (75-99)
--- NOTE | 2019-06-20 22:00 | PN ---
PROGRESS NOTE DATE OF SERVICE: 06/20/2019. This 53-year-old gentleman who was admitted with acute multifocal pneumonia is on IV antibiotics. Dr. Molina is planning bronchoscopy today. No chest pain. No palpitations. No fever. Right-sided biopsy also. No chest pain. No palpitations. No fever. EXAM: Alert and oriented x3. Pulse 75. Blood pressure 109/74, respiration 17. Temperature 97.6, pulse ox 97% on room air. HEENT: Conjunctivae normal. NECK: No JVD. CARDIOVASCULAR: S1, S2 muffled. RESPIRATORY: Breath sounds diminished in the bases. A few scattered rhonchi and crackles. Abdomen is soft, nontender. No mass palpable. LEGS: No edema. No swelling. CENTRAL NERVOUS SYSTEM: No focal deficits. LABS: WBC 4.7, hemoglobin 11.9. Sodium 136. ASSESSMENT: 1. Acute multifocal pneumonia, rule out early cavitary pneumonia with failure of outpatient treatment. 2. Rule out granulomatous disease, malignancy or organism pneumonia. 3. Diabetes mellitus type 2, uncontrolled with hyperglycemia. 4. Anemia, normocytic anemia of chronic disease. 5. Thrombocytopenia. 6. Hypertension. 7. Hyperlipidemia. 8. History of seizure disorder. 9. History of closed-head injury. 10.History of migraines. 11.History of MRSA. 12.History of degenerative joint disease. 13.History of continued ongoing nicotine dependence. 14.History of THC. RECOMMENDATIONS AND DISCUSSION: Recommend to continue current medications, management and symptomatic treatment. Continue the antibiotics. Continue with antibiotics. Continue the bronchodilators. Closely follow with Pulmonary. Await biopsy report. Further recommendations to follow. MMODL / IJN: [id number] /
[2019-06-20] MEDS ORDERED: INSULIN ASPART (NovoLOG) 100 UNIT/ML VIAL SQ ONE (22:07)
[2019-06-20 22:18] LABS: Glucose,Whole Blood 284 mg/dL (75-99)
[2019-06-20 23:45] LABS: Glucose,Whole Blood 133 mg/dL (75-99)
[2019-06-21] LABS: Mononuclear WBC,Body Fluid 4 %; Polynuclear WBC,Body Fluid 96 %; Total Cells Counted,Body Fluid 100
[2019-06-21] MEDS: PIPERACILLIN-TAZOBACTAM 3.375 GM in SODIUM CHLORIDE 0.9% 100 ML IVPB SCH ×2 (04:21→10:51)
[2019-06-21 06:46] LABS: Glucose,Whole Blood 59 mg/dL (75-99)
[2019-06-21 07:20] LABS: Glucose,Whole Blood 126 mg/dL (75-99)
[2019-06-21] MEDS: INSULIN ASPART (NovoLOG) 100 UNIT/ML VIAL SQ SCH ×4 (07:21→12:08)
[2019-06-21] MEDS: HEPARIN SODIUM,PORCINE 5,000 UNIT/ML 1 ML VIAL SQ SCH (07:25)
[2019-06-21] MEDS: FAMOTIDINE 20 MG TAB PO SCH (07:26)
[2019-06-21] MEDS: PHENYTOIN SODIUM EXTENDED 100 MG CAP PO SCH (07:26)
[2019-06-21] MEDS: LORATADINE 10 MG TAB PO SCH (07:26)
[2019-06-21] MEDS: LISINOPRIL 5 MG TAB PO SCH (07:26)
[2019-06-21] MEDS: GABAPENTIN 300 MG CAP PO SCH (07:26)
[2019-06-21] MEDS: BACLOFEN 10 MG TAB PO SCH (07:26)
[2019-06-21] MEDS: INSULIN DETEMIR (LEVEMIR) 100 UNIT/ML SYR SQ SCH (07:27)
[2019-06-21 08:06] VITALS: BP 121/72; PULSE 67; RESP 17; TEMP 97.6
[2019-06-21 08:24] LABS: Basophils % (A) 0 %; Eosinophils # (A) 0.1 k/uL (0-0.7); Eosinophils % (A) 2 %; HCT 35.3 % (39.0-53.0); HGB 11.5 gm/dL (13.0-17.5); Lymphocytes # (A) 1.2 k/uL (1.0-4.8); Lymphocytes % (A) 31 %; MCH 30.9 pg (25.0-35.0); MCHC 32.7 g/dL (31.0-37.0); MCV 94.7 fL (80.0-100.0); Mean Platelet Volume 7.7; Monocytes # (A) 0.2 k/uL (0-1.0); Monocytes % (A) 5 %; Neutrophils # (A) 2.4 k/uL (1.3-7.7); Neutrophils % (A) 60 %; Platelet Count 182 k/uL (150-450); RBC 3.73 m/uL (4.30-5.90); RDW 12.4 % (11.5-15.5); WBC 4.1 k/uL (3.8-10.6)
[2019-06-21 08:45] LABS: African American GFR (CKD) >90 (>60 ml/min/1.73 sqM); Anion Gap 6 mmol/L; Blood Urea Nitrogen 15 mg/dL (9-20); Calcium 8.2 mg/dL (8.4-10.2); Carbon Dioxide 25 mmol/L (22-30); Chloride 106 mmol/L (98-107); Glucose 280 mg/dL (74-99); Non-African American GFR(CKD) >90 (>60 ml/min/1.73 sqM); Potassium 4.2 mmol/L (3.5-5.1); Sodium 137 mmol/L (137-145)
[2019-06-21] MEDS: LEVOFLOXACIN 500MG-D5W PMX 500 MG in DEXTROSE/WATER 1 100ML.BAG IVPB SCH (09:02)
--- NOTE | 2019-06-21 09:07 | P.PN ---
Subjective Progress Note Date: 06/21/19 Principal diagnosis: Multifocal nodular infiltrates involving both lungs, cough, right-sided chest pain This is a 53-year-old white male patient of Dr. Evangelista, with past medical history of diabetes mellitus type 2, hypertension, hyperlipidemia, seizure disorder, closed head injury, migraine headaches, current every day 6 smoker, carries [id number] smoking history, MRSA infection, and marijuana use. Patient presented to the emergency department 06/18/2019 with complaints of severe coughing spells, chills, and right-sided sharp chest discomfort with coughing and deep breathing. Patient states he has been having increased coughing and chills for last few days. He was taking left over antibiotics from last summer that was given to him by his PCP for infection related to a cat bite. He was unsure what he was taking. He states his cough is dry, and he is not able to c lear any sputum, denied any hemoptysis. Chest x-ray showed peribronchial cuffing, and masslike right infrahilar consolidation, that was not previously present from the chest x-ray in November 2018. CT angios Chest showed multifocal nodular opacities involving the right lower lobe, left lower lobe and right middle lobe and confluent opacity in the right upper lobe likely representing multifocal pneumonia. No evidence of pulmonary embolism. Admission lab work showed a white blood cell count of 10.3, hemoglobin is 12.5, coagulation profile was within normal limits, sodium was 132, the rest of the left with a renal profile were within normal limits, serum glucose was 329, troponins were negative 3, 50s were within normal limits, proBNP was normal at 90, influenza screen was nondetected. DESMOND screen was positive. Admits to 25 pound weight loss in the last month. Patient has been afebrile while in the hospital, his pulse ox is 98% on room air, he is hemodynamically stable, seems fairly comfortable other than occasional chest pain right side of his chest with deep breathing and coughing, he was started on empiric Levaquin and Zosyn, was given a liter bolus in the emergency department and was admitted for further management. On 06/20/2019 patient seen in follow-up on medical surgical floor. He is resting comfortably in bed, he denies any right-sided chest pain today, denies any shortness of breath, vital signs are stable, he has been afebrile, room air pulse ox is 99%. No significant cough or phlegm production, no hemoptysis. He was unable to produce a sputum specimen for culture, his been nothing by mouth after midnight and she scheduled for bronchoscopy with possibility of transbronchial biopsies. Pro-calcitonin level came back low suggesting that the abnormalities noted on the chest x-ray and that CAT scan of the chest are not related to an infectious etiology. DESMOND titer and p-ANCA were elevated suggesting possibility of connective tissue disease involving the lungs such as granulomatosis with polyangiitis. On 06/21/2019 patient seen in follow-up on medical surgical floor. Yesterday he underwent bronchoscopy with BAL and transbronchial biopsies right lower lobe. Significant amount of purulent secretions were removed during the bronchoscopy, and bronchial wash cultures are pending at this time. Patient has had no fever or chills overnight, no coughing spells, no hemoptysis, no complaints of chest pain. On a combination of Levaquin and Zosyn, IV steroids and breathing treatments, DESMOND screen was positive but c-ANCA and p-ANCA titers were negative, making it unlikely that his pulmonary infiltrates are related to connective tissue disease Objective - Vital Signs Vital signs: Vital Signs Temp 97.6 F 06/21/19 06:58 Pulse 67 06/21/19 06:58 Resp 17 06/21/19 06:58 BP 121/72 06/21/19 06:58 Pulse Ox 99 06/21/19 06:58 Intake & Output 06/20/19 06/21/19 06/21/19 18:59 06:59 18:59 Intake Total 200 100 Balance 200 100 Intake: IV 200 Levofloxacin 500Mg-D5w 100 Pmx 500 mg In Dextrose/ Water 1 100ml.bag @ 100 mls/hr IVPB Q24H [facility] Rx#: [id number] Piperacillin-Tazobactam 3 100 .375 gm In Sodium Chloride 0.9% 100 ml @ 25 mls/hr IVPB Q8H [facility] Rx#: [id number] Intake, IV Titration 100 Amount Piperacillin-Tazobactam 3 100 .375 gm In Sodium Chloride 0.9% 100 ml @ 25 mls/hr IVPB Q8H [facility] Rx#: [id number] Other: # Voids 2 - Exam GENERAL EXAM: Alert, pleasant, 53-year-old white male in room air, with a pulse ox of 98% comfortable in no apparent distress. HEAD: Normocephalic/atraumatic. EYES: Normal reaction of pupils, equal size. Conjunctiva pink, sclera white. NOSE: Clear with pink turbinates. THROAT: No erythema or exudates. NECK: No masses, no JVD, no thyroid enlargement, no adenopathy. CHEST: No chest wall deformity. Symmetrical expansion. LUNGS: Equal air entry with diminished breath sounds bilaterally, no rhonchi, no wheezing no rales CVS: Regular rate and rhythm, normal S1 and S2, no gallops, no murmurs, no rubs ABDOMEN: Soft, nontender. No hepatosplenomegaly, normal bowel sounds, no guarding or rigidity. EXTREMITIES: No clubbing, no edema, no cyanosis, 2+ pulses and upper and lower extremities. MUSCULOSKELETAL: Muscle strength and tone normal. SPINE: No scoliosis or deformity SKIN: No rashes CENTRAL NERVOUS SYSTEM: Alert and oriented -3. No focal deficits, tone is normal in all 4 extremities. PSYCHIATRIC: Alert and oriented -3. Appropriate affect. Intact judgment and insight. - Labs CBC & Chem 7: 06/21/19 08:08 06/21/19 08:08 Labs: Abnormal Lab Results - Last 24 Hours (Table) 06/20/19 06/20/19 06/20/19 Range/Units 11:39 16:57 17:50 RBC (4.30-5.90) m/uL Hgb (13.0-17.5) gm/dL Hct (39.0-53.0) % Glucose (74-99) mg/dL POC Glucose (mg/dL) 179 H 114 H (75-99) mg/dL Calcium (8.4-10.2) mg/dL Urine Glucose (UA) 4+ H (Negative) 06/20/19 06/20/19 06/20/19 Range/Units 20:28 21:28 22:15 RBC (4.30-5.90) m/uL Hgb (13.0-17.5) gm/dL Hct (39.0-53.0) % Glucose (74-99) mg/dL POC Glucose (mg/dL) 462 H 425 H 284 H (75-99) mg/dL Calcium (8.4-10.2) mg/dL Urine Glucose (UA) (Negative) 06/20/19 06/21/19 06/21/19 Range/Units 23:44 06:43 07:18 RBC (4.30-5.90) m/uL Hgb (13.0-17.5) gm/dL Hct (39.0-53.0) % Glucose (74-99) mg/dL POC Glucose (mg/dL) 133 H 59 L 126 H (75-99) mg/dL Calcium (8.4-10.2) mg/dL Urine Glucose (UA) (Negative) 06/21/19 06/21/19 Range/Units 08:08 08:08 RBC 3.73 L (4.30-5.90) m/uL Hgb 11.5 L (13.0-17.5) gm/dL Hct 35.3 L (39.0-53.0) % Glucose 280 H (74-99) mg/dL POC Glucose (mg/dL) (75-99) mg/dL Calcium 8.2 L (8.4-10.2) mg/dL Urine Glucose (UA) (Negative) Microbiology - Last 24 Hours (Table) 06/20/19 13:00 Gram Stain - Preliminary Bronchoalviolar Lavage - Right Bronchial Washings Culture - Preliminary 06/20/19 13:00 Fungal Culture - Preliminary Bronchoalviolar Lavage - Right 06/20/19 13:00 Acid Fast Bacilli Culture - Preliminary Bronchoalviolar Lavage - Right 06/18/19 14:47 Blood Culture - Preliminary Blood No Growth after 48 hours Assessment and Plan Assessment: Assessment: #1. Multifocal nodular opacities involving the right lower lobe, left lower lobe and right middle lobe and confluent opacity in the right upper lobe with the possibility of underlying pneumonia. Rule out connective tissue disorder, DESMOND level was elevated but the P-ANCA and C=ANCA levels were within normal limits #2. Sharp pleuritic right-sided chest pain and severe coughing spells related to the above, troponins were negative #3. [id number] smoking history, continues to smoke #5. 25 pound weight loss in the last month #4. Hypertension #5. Hyperlipidemia #6. Diabetes mellitus type 2, insulin-dependent #7. Close head injury and seizure disorder #8. Migraine headaches #9. Previous history of MRSA infection #10. Marijuana use, edibles and smoking #11. History of degenerative joint disease Plan: Patient is clinically stable, yesterday's chest x-ray following the bronchoscopy with BAL and biopsies already showed improvement in the appearance of multifocal bilateral infiltrates. P-ANCA and C-ANCA levels were within normal limits, awaiting final biopsy results. Multifocal infiltrates are most likely related to multifocal pneumonia rather than connective tissue disease. Patient had significant amount of purulent secretions in his bronchial airways, which were removed, cultures are pending, there have been no fever or chills, no complaints of cough or congestion, no hemoptysis. Patient is on room air, vital signs are stable, he is stable for discharge home today, and he will need outpatient follo w-up with Dr. Brown in one or 2 weeks in regards to the biopsies of his right lower lobe and bronchial wash cultures and a repeat chest x-ray. He can finish outpatient course of Levaquin and is on taper, and he can resume his regular inhalers and breathing treatments. I performed a history & physical examination of the patient and discussed their management with my nurse practitioner, Maribell Leyva. I reviewed the nurse practitioner's note and agree with the documented findings and plan of care. Lung sounds are positive for inspiratory crackles. The findings and the impression was discussed with the patient. I attest to the documentation by the nurse practitioner. Time with Patient: Less than 30
[2019-06-21] MEDS: IPRATROPIUM 0.5 MG/2.5 ML NEBU INHALATION SCH ×2 (11:17→11:25)
[2019-06-21 11:31] LABS: Glucose,Whole Blood 431 mg/dL (75-99)
[2019-06-21 12:57] LABS: Glucose,Whole Blood 293 mg/dL (75-99)
--- NOTE | 2019-06-22 07:18 | DS ---
DISCHARGE SUMMARY DATE OF SERVICE: 06/21/2019 FINAL DIAGNOSES: 1. Acute multifocal pneumonia, rule out cavitary pneumonia with failure of outpatient treatment. 2. Rule out granulomatous disease, malignancy, or organizing pneumonia. 3. Diabetes mellitus type 2, uncontrolled with hyperglycemia. 4. Anemia, normocytic anemia of chronic disease. 5. Thrombocytopenia. 6. Hypertension. 7. Hyperlipidemia. 8. History of seizure disorder. 9. history of closed-head injury. 10.History of migraine. 11.History of methicillin-resistant Staphylococcus aureus. 12.History of degenerative joint disease. 13.History of continued ongoing nicotine dependence. 14.History of THC. DISCHARGE DISPOSITION: The patient will be discharged in a stable condition with guarded prognosis. Total time taken: 35 minutes. HISTORY OF PRESENT ILLNESS: This is a 53-year-old gentleman with a past medical history of multiple medical problems who was admitted with multifocal pneumonia with failure of outpatient treatment. Dr. Molina saw the patient and treated with antibiotics. Dr. Molina also performed a bronchoscopy and biopsy done and cultures and final biopsy reports are pending at this time. The secretions were suctioned out by Dr. Molina. Please refer to Dr. Molina's notes and bronchoscopy notes for further details. The chest x-ray did not show much findings, mostly findings are noted in CT scan of the chest. On exam, vitals are stable. CARDIOVASCULAR: S1, S2. RESPIRATION: A few scattered rhonchi. ABDOMEN: Soft. NERVOUS SYSTEM: No focal deficits. Patient is extremely keen on going home. The patient will be discharged in a stable condition with guarded prognosis with the following advice and medications. 1. Diet is cardiac. 2. Activity is limited until followup. 3. Follow up with Dr. Evangelista in 2-3 days. DISCHARGE MEDICATIONS: 1. Insulin 10 units a.c. t.i.d. 2. Atrovent 0.5 t.i.d. p.r.n. 3. Baclofen 10 mg b.i.d. 4. Dilantin 100 mg. p.o. daily. 5. Famotidine 20 mg p.o. b.i.d. 6. Fluticasone salmeterol two puffs b.i.d. 7. Imitrex 250 mg b.i.d. p.r.n. 8. Incruse Ellipta 1 puff daily. 9. Lantus 50 units subcu b.i.d. 10.Lipitor 20 mg q.h.s. 11.Loratadine 10 mg p.o. daily. 12.Neurontin 300 mg p.o. b.i.d. 13.Ventolin HFA 2 puffs q.i.d. p.r.n. 14.Zestril 5 mg p.o. daily. 15.Levaquin 750 mg daily for 7 days. 16.Prednisone taper 40 mg daily for 3 days, 30 for 3 days, 20 for 3 days 10 for 3 days and then stop. Once again. the patient will be discharged in a stable condition with guarded prognosis. Accu-Cheks a.c. and at bedtime and results to Dr. Evangelista. RASHAD / NADYA: [id number] /
== END 2019-06-21 15:05 | disposition home health service (06) | DRG 168 ==
LOC: EC 11:58 → 4SSUR 14:16
PROVIDERS: ADMIT Hospitalist; ATTEND Hospitalist
PROC: 0B9F8ZX Drainage of Right Lower Lung Lobe, Via Natural or Artificial Opening Endoscopic, Diagnostic (ICD-10-PCS; principal; 2019-06-20 09:05)
PROC: 0BBF8ZX Excision of Right Lower Lung Lobe, Via Natural or Artificial Opening Endoscopic, Diagnostic (ICD-10-PCS; 2019-06-20 09:05)
PROC: 0BCB8ZZ Extirpation of Matter from Left Lower Lobe Bronchus, Via Natural or Artificial Opening Endoscopic (ICD-10-PCS; 2019-06-20 09:05)
DX: J18.8 Other pneumonia, unspecified organism (principal); J84.89 Other specified interstitial pulmonary diseases; F17.210 Nicotine dependence, cigarettes, uncomplicated; D63.8 Anemia in other chronic diseases classified elsewhere; D69.6 Thrombocytopenia, unspecified; E11.65 Type 2 diabetes mellitus with hyperglycemia; E78.5 Hyperlipidemia, unspecified; G40.909 Epilepsy, unspecified, not intractable, without status epilepticus; G43.909 Migraine, unspecified, not intractable, without status migrainosus; I10 Essential (primary) hypertension; Z87.820 Personal history of traumatic brain injury; Z79.4 Long term (current) use of insulin; Z79.899 Other long term (current) drug therapy; Z80.9 Family history of malignant neoplasm, unspecified; Z86.14 Personal history of Methicillin resistant Staphylococcus aureus infection; R63.4 Abnormal weight loss; Z68.21 Body mass index [BMI] 21.0-21.9, adult; Z88.1 Allergy status to other antibiotic agents; Z88.5 Allergy status to narcotic agent
CPT/HCPCS: 31622; 31624; 31625; 36415; 71045; 71046; 71275; 80048; 80053; 81003; 83690; 83735; 83880; 84145; 84484; 85025; 85610; 85652; 85730; 86038; 86039; 86140; 86255; 87040; 87070; 87102; 87116; 87205; 87206; 87252; 87496; 87498; 87502; 87529; 87634; 87798; 88108; 88305; 89050; 93005; 94640; 94760; 96361; 96365; 96375; 99285

== ENCOUNTER 2020-01-18 09:31 | Emergency (ER) | payer OTHER ==
[2020-01-18] MEDS ORDERED: SODIUM CHLORIDE 0.9% 1,000 ML IV STA (10:04)
[2020-01-18] MEDS ORDERED: KETOROLAC 30 MG/ML 1 ML VIAL IVP STA (10:04)
--- NOTE | 2020-01-18 10:08 | ED ---
General Adult HPI - General Chief complaint: Recheck/Abnormal Lab/Rx Stated complaint: UTI Time Seen by Provider: 01/18/20 09:57 Source: patient, RN notes reviewed, old records reviewed Mode of arrival: ambulatory Limitations: no limitations - History of Present Illness Initial comments: Patient is a 54-year-old male presents emergency department today with complaints of difficulty with urination and urinary hesitancy starting at 235 this morning. He also complains of some right lower quadrant abdominal pain that has been sharp and stabbing and intermittent in nature. Patient reports that he's had no previous history of kidney stones. Patient reports that he would stand to urinate but would be unsuccessful but then when he would lay down he would have the urgency to go again. Patient states that he's had no concern for section transmitted infections or penile discharge. He denies any changes in bowel habits including diarrhea or constipation. Patient states that he has had no fevers or chills. Patient reports he's had a history of urinary urinary retention in the past. Patient reports that over the past few weeks he has been having lower leg cramping intermittently and spasming for the past few weeks. He saw his primary care doctor who attributed the symptoms to be related to his cholesterol medication. He has now stopped that. Patient denies any back pain at this time. He denies any peripheral paresthesias. He denies saddle anesthesia. - Related Data Home Medications Medication Instructions Recorded Confirmed Lisinopril [Zestril] 5 mg PO DAILY 03/20/14 01/18/20 Atorvastatin [Lipitor] 20 mg PO HS 01/05/16 01/18/20 Phenytoin Sodium Extended 100 mg PO TID 04/28/17 01/18/20 [Dilantin] Baclofen 10 mg PO BID 05/25/17 01/18/20 Albuterol Nebulized [Ventolin 2.5 mg INHALATION RT-TID PRN 11/17/18 01/18/20 Nebulized] Umeclidinium [place] [Incruse 1 puff INHALATION RT-DAILY 11/17/18 01/18/20 Ellipta] SUMAtriptan SUCCINATE [Imitrex] 50 mg PO BID PRN 11/18/18 01/18/20 Insulin Lispro [Admelog] 15 unit SQ AC-TID 12/13/18 01/18/20 Loratadine 10 mg PO DAILY 12/13/18 01/18/20 Gabapentin [Neurontin] 300 mg PO TID 06/18/19 01/18/20 Albuterol Inhaler [Ventolin Hfa 2 puff INHALATION RT-Q4H PRN 01/18/20 01/18/20 Inhaler] Insulin Glargine,Hum.rec.anlog 30 unit SQ BID 01/18/20 01/18/20 [Basaglar Kwikpen U-100] Insulin Lispro [Admelog] 15 units SQ AC-TID 01/18/20 01/18/20 Ipratropium-Albuterol Nebulize 3 ml INHALATION RT-QID PRN 01/18/20 01/18/20 [Duoneb 0.5 mg-3 mg/3 ml Soln] Naproxen Sodium [Aleve] 220 mg PO DAILY 01/18/20 01/18/20 Allergies Allergy/AdvReac Type Severity Reaction Status Date / Time cephalexin [From Keflex] AdvReac Nausea & Verified 01/18/20 11:08 Vomiting codeine AdvReac Abdominal Verified 01/18/20 11:08 Pain Review of Systems ROS Statement: Those systems with pertinent positive or pertinent negative responses have been documented in the HPI. ROS Other: All systems not noted in ROS Statement are negative. Past Medical History Past Medical History: Diabetes Mellitus, Hyperlipidemia, Hypertension, Seizure Disorder Additional Past Medical History / Comment(s): Closed Head Injury, migraines History of Any Multi-Drug Resistant Organisms: MRSA Date of last positivie culture/infection: 1999 MDRO Source:: R hip Past Surgical History: Orthopedic Surgery Additional Past Surgical History / Comment(s): right leg Past Anesthesia/Blood Transfusion Reactions: No Reported Reaction Past Psychological History: No Psychological Hx Reported Smoking Status: Current every day smoker Past Alcohol Use History: None Reported Past Drug Use History: Marijuana - Past Family History Father Family Medical History: Cancer Mother Family Medical History: Cancer General Exam - General Exam Comments Initial Comments: Alert and oriented 54-year-old male. Limitations: no limitations General appearance: alert, in no apparent distress Head exam: Present: atraumatic, normocephalic, normal inspection Eye exam: Present: normal appearance, PERRL, EOMI. Absent: scleral icterus, conjunctival injection, periorbital swelling ENT exam: Present: normal exam, mucous membranes moist Neck exam: Present: normal inspection. Absent: tenderness, meningismus, lymphadenopathy Respiratory exam: Present: normal lung sounds bilaterally. Absent: respiratory distress, wheezes, rales, rhonchi, stridor Cardiovascular Exam: Present: regular rate, normal rhythm, normal heart sounds. Absent: systolic murmur, diastolic murmur, rubs, gallop, clicks GI/Abdominal exam: Present: soft, tenderness (Right lower quadrant tenderness, suprapubic tenderness), normal bowel sounds. Absent: distended, guarding, rebound, rigid Extremities exam: Present: normal inspection, full ROM, normal capillary refill. Absent: tenderness, pedal edema, joint swelling, calf tenderness Back exam: Present: normal inspection Neurological exam: Present: alert, oriented X3, CN II-XII intact Psychiatric exam: Present: normal affect, normal mood Course Vital Signs 01/18/20 01/18/20 01/18/20 09:37 11:38 13:20 Temperature 97 F L 98.1 F Pulse Rate 97 85 87 Respiratory 18 18 20 Rate Blood Pressure 106/74 142/96 135/68 O2 Sat by Pulse 98 98 99 Oximetry - Reevaluation(s) Reevaluation #1: 01/18/20 10:08 is able to urinate after my evaluation and we will obtain a postvoid residual after he urinates. Time: 10:13 Reevaluation #2: 01/18/20 10:13 Patient had bladder scan after urinating and Patient had approximately 519 mL of urine retained in the bladder. Flores catheter will be initiated. Does report contact any family history of urinary retention in the past. Medical Decision Making - Medical Decision Making Patient 4-year-old male presents emergency department today with concerns for urinary retention, suprapubic pain and complained of dysuria starting last night. He said history of urinary retention the past. Denies any back pain saddle anesthesias or other significant complaints of vomiting. Patient was able to urinate on his own but had a postvoid residual 500 mL. A Flores catheter was placed and approximate 100 mL of urine was removed. He states that he's had this happen in the past. Denies any new medications cause urinary retention. Most likely believed related to prostate hyperplasia. Patient at this time had a KUB x-ray showed some fecal stool burden. He did report he had normal bowel movements today. I advised the Patient that he needed to follow up with urology to have a Flores catheter removed. Patient is agreeable to this plan. His blood sugar was also noted to be elevated at 600. He states he did not take his insulin the past 2 days. Patient was given insulin bolus and blood sugar came down after IV fluids. I discussed following up with primary care doctor regards to this as well. All questions were answered. - Lab Data Result diagrams: 01/18/20 10:25 01/18/20 10:25 Lab Results 01/18/20 01/18/20 01/18/20 Range/Units 10:25 10:25 10:25 WBC 7.7 (3.8-10.6) k/uL RBC 4.41 (4.30-5.90) m/uL Hgb 13.8 (13.0-17.5) gm/dL Hct 43.4 (39.0-53.0) % MCV 98.5 (80.0-100.0) fL MCH 31.2 (25.0-35.0) pg MCHC 31.7 (31.0-37.0) g/dL RDW 12.4 (11.5-15.5) % Plt Count 176 (150-450) k/uL Neutrophils % 80 % Lymphocytes % 13 % Monocytes % 5 % Eosinophils % 1 % Basophils % 0 % Neutrophils # 6.1 (1.3-7.7) k/uL Lymphocytes # 1.0 (1.0-4.8) k/uL Monocytes # 0.4 (0-1.0) k/uL Eosinophils # 0.0 (0-0.7) k/uL Basophils # 0.0 (0-0.2) k/uL PT 9.4 (9.0-12.0) sec INR 0.9 (<1.2) APTT 20.6 L (22.0-30.0) sec Sodium (137-145) mmol/L Potassium (3.5-5.1) mmol/L Chloride (98-107) mmol/L Carbon Dioxide (22-30) mmol/L Anion Gap mmol/L BUN (9-20) mg/dL Creatinine (0.66-1.25) mg/dL Est GFR (CKD-EPI)AfAm (>60 ml/min/1.73 sqM) Est GFR (CKD-EPI)NonAf (>60 ml/min/1.73 sqM) Glucose (74-99) mg/dL POC Glucose (mg/dL) (75-99) mg/dL POC Glu Clinical Unit Educator ID Calcium (8.4-10.2) mg/dL Total Bilirubin (0.2-1.3) mg/dL AST (17-59) U/L ALT (4-49) U/L Alkaline Phosphatase (38-126) U/L Total Protein (6.3-8.2) g/dL Albumin (3.5-5.0) g/dL Amylase (30-110) U/L Lipase (23-300) U/L Urine Color Light Yellow Urine Appearance Clear (Clear) Urine pH 5.5 (5.0-8.0) Ur Specific [place] 1.025 (1.001-1.035) Urine Protein Negative (Negative) Urine Glucose (UA) 4+ H (Negative) Urine Ketones Trace H (Negative) Urine Blood Small H (Negative) Urine Nitrite Negative (Negative) Urine Bilirubin Negative (Negative) Urine Urobilinogen <2.0 (<2.0) mg/dL Ur Leukocyte Esterase Negative (Negative) Urine RBC 1 (0-5) /hpf Urine Mucus Rare H (None) /hpf 01/18/20 01/18/20 01/18/20 Range/Units 10:25 12:03 13:23 WBC (3.8-10.6) k/uL RBC (4.30-5.90) m/uL Hgb (13.0-17.5) gm/dL Hct (39.0-53.0) % MCV (80.0-100.0) fL MCH (25.0-35.0) pg MCHC (31.0-37.0) g/dL RDW (11.5-15.5) % Plt Count (150-450) k/uL Neutrophils % % Lymphocytes % % Monocytes % % Eosinophils % % Basophils % % Neutrophils # (1.3-7.7) k/uL Lymphocytes # (1.0-4.8) k/uL Monocytes # (0-1.0) k/uL Eosinophils # (0-0.7) k/uL Basophils # (0-0.2) k/uL PT (9.0-12.0) sec INR (<1.2) APTT (22.0-30.0) sec Sodium 131 L (137-145) mmol/L Potassium 5.1 (3.5-5.1) mmol/L Chloride 96 L (98-107) mmol/L Carbon Dioxide 26 (22-30) mmol/L Anion Gap 9 mmol/L BUN 33 H (9-20) mg/dL Creatinine 0.79 (0.66-1.25) mg/dL Est GFR (CKD-EPI)AfAm >90 (>60 ml/min/1.73 sqM) Est GFR (CKD-EPI)NonAf >90 (>60 ml/min/1.73 sqM) Glucose 648 H* (74-99) mg/dL POC Glucose (mg/dL) 575 H 478 H (75-99) mg/dL POC Glu Clinical Unit Educator ID Sandy Garcias [place] Calcium 9.7 (8.4-10.2) mg/dL Total Bilirubin 1.0 (0.2-1.3) mg/dL AST 46 (17-59) U/L ALT 54 H (4-49) U/L Alkaline Phosphatase 210 H (38-126) U/L Total Protein 6.8 (6.3-8.2) g/dL Albumin 4.1 (3.5-5.0) g/dL Amylase 55 (30-110) U/L Lipase 121 (23-300) U/L Urine Color Urine Appearance (Clear) Urine pH (5.0-8.0) Ur Specific [place] (1.001-1.035) Urine Protein (Negative) Urine Glucose (UA) (Negative) Urine Ketones (Negative) Urine Blood (Negative) Urine Nitrite (Negative) Urine Bilirubin (Negative) Urine Urobilinogen (<2.0) mg/dL Ur Leukocyte Esterase (Negative) Urine RBC (0-5) /hpf Urine Mucus (None) /hpf - Radiology Data Radiology results: report reviewed KUB shows evidence of fecal stasis. Postop changes described. Disposition Clinical Impression: Urinary retention, Hyperglycemia Disposition: HOME SELF-CARE Condition: Good Instructions (If sedation given, give patient instructions): Urinary Retention in Men (ED), Enlarged Prostate (BPH) (ED) Additional Instructions: Patient advised to follow-up with Dr. Andrade from urology to have the Flores catheter removed next week. Patient should return to emergency department if any alarming signs or symptoms occur. Patient should dose insulin as prescribed by her primary care physician. Is patient prescribed a controlled substance at d/c from ED?: No Referrals: Alexy Evangelista MD [Primary Care Provider] - 1-2 days Kevin Andrade MD [STAFF PHYSICIAN] - 1-2 days Time of Disposition: 12:46
[2020-01-18 10:55] LABS: Appearance,Urine Clear (Clear); Bilirubin,Urine Negative (Negative); Blood,Urine Small (Negative); Color,Urine Light Yellow; Glucose,Urine (UA) 4+ (Negative); Ketones,Urine Trace (Negative); Leukocyte Esterase,Urine Negative (Negative); Mucus,Urine Rare /hpf; Nitrite,Urine Negative (Negative); PH, Urine 5.5 (5.0-8.0); Protein,Urine Negative (Negative); RBC,Urine 1 /hpf (0-5); Specific Gravity,Urine 1.025 (1.001-1.035); Urobilinogen,Urine <2.0 mg/dL (<2.0)
[2020-01-18 11:00] LABS: Basophils % (A) 0 %; Eosinophils % (A) 1 %; HCT 43.4 % (39.0-53.0); HGB 13.8 gm/dL (13.0-17.5); Lymphocytes % (A) 13 %; MCH 31.2 pg (25.0-35.0); MCHC 31.7 g/dL (31.0-37.0); MCV 98.5 fL (80.0-100.0); Mean Platelet Volume 8.5; Monocytes # (A) 0.4 k/uL (0-1.0); Monocytes % (A) 5 %; Neutrophils # (A) 6.1 k/uL (1.3-7.7); Neutrophils % (A) 80 %; Platelet Count 176 k/uL (150-450); RBC 4.41 m/uL (4.30-5.90); RDW 12.4 % (11.5-15.5); WBC 7.7 k/uL (3.8-10.6)
[2020-01-18 11:07] LABS: ALT 54 U/L (4-49); AST 46 U/L (17-59); African American GFR (CKD) >90 (>60 ml/min/1.73 sqM); Albumin 4.1 g/dL (3.5-5.0); Alkaline Phosphatase 210 U/L (38-126); Amylase 55 U/L (30-110); Anion Gap 9 mmol/L; Blood Urea Nitrogen 33 mg/dL (9-20); Calcium 9.7 mg/dL (8.4-10.2); Carbon Dioxide 26 mmol/L (22-30); Chloride 96 mmol/L (98-107); Lipase 121 U/L (23-300); Non-African American GFR(CKD) >90 (>60 ml/min/1.73 sqM); Potassium 5.1 mmol/L (3.5-5.1); Sodium 131 mmol/L (137-145); Total Protein 6.8 g/dL (6.3-8.2)
--- NOTE | 2020-01-18 11:11 | XR ---
KUB HISTORY: Abdominal pain Frontal KUB submitted on 2 images Correlated prior exam 03/16/2010 Postop changes noted to the right femur. Urinary catheter is thought to be in place. Heterotopic new bone about the right hip is again seen and is stable. Probable phleboliths present over the scrotal r egions. There is retained fecal debris throughout the distribution of the colon. Degenerative disc ch anges are present in the visualized spine. No evident bowel obstruction or pneumoperitoneum. Lung bas es are clear. IMPRESSION: Correlate for fecal stasis. Postop and postprocedural changes as described.
[2020-01-18 11:26] LABS: Glucose 648 mg/dL (74-99); INR 0.9 (<1.2); Prothrombin Time 9.4 sec (9.0-12.0)
[2020-01-18] MEDS ORDERED: INSULIN REGULAR 100 UNIT/ML VIAL IV ONE (11:32)
[2020-01-18 11:35] LABS: Partial Thromboplastin Time 20.6 sec (22.0-30.0)
[2020-01-18 12:05] LABS: Glucose,Whole Blood 575 mg/dL (75-99)
[2020-01-18 13:27] LABS: Glucose,Whole Blood 478 mg/dL (75-99)
[2020-01-18 13:42] VITALS: BP 135/68; PULSE 87; RESP 20; TEMP 98.1
== END 2020-01-18 13:43 | disposition home or self-care (01) ==
LOC: EC 09:31
DX: E11.65 Type 2 diabetes mellitus with hyperglycemia (principal); R19.5 Other fecal abnormalities; E78.5 Hyperlipidemia, unspecified; I10 Essential (primary) hypertension; G40.909 Epilepsy, unspecified, not intractable, without status epilepticus; G43.909 Migraine, unspecified, not intractable, without status migrainosus; F17.200 Nicotine dependence, unspecified, uncomplicated; Z79.899 Other long term (current) drug therapy; Z79.4 Long term (current) use of insulin; Z88.1 Allergy status to other antibiotic agents; Z88.5 Allergy status to narcotic agent; N39.0 Urinary tract infection, site not specified; Z86.14 Personal history of Methicillin resistant Staphylococcus aureus infection
CPT/HCPCS: 51798; 36415; 80053; 82150; 83690; 85025; 85610; 85730; 81001; 74018; 99284; 96374; 96361; 51702; J1885

== ENCOUNTER 2020-05-28 16:57 | Emergency (ER) | payer OTHER ==
--- NOTE | 2020-05-28 17:22 | ED ---
Altered Mental Status HPI - General Chief Complaint: Recheck/Abnormal Lab/Rx Stated Complaint: diabetic Time Seen by Provider: 05/28/20 17:09 Source: patient, RN notes reviewed, old records reviewed Mode of arrival: EMS Limitations: no limitations - History of Present Illness Initial Comments: This is a 54-year-old male DF for evaluation patient coming in for possible placement by his roommate friend. Patient is unsure what medications he was in by. Patient is very sleepy and spends most is days very sleepy. Patient has no complaints states his blood sugar has been running high. Otherwise aside from feeling fatigued has no complaints MD Complaint: weakness, other (Fatigue) -: days(s) Severity: mild Consistency of Symptoms: waxing and waning Context: diabetes Associated Symptoms: denies other symptoms - Related Data Home Medications Medication Instructions Recorded Confirmed lisinopriL [Zestril] 5 mg PO DAILY 03/20/14 05/28/20 Atorvastatin [Lipitor] 20 mg PO HS 01/05/16 05/28/20 Phenytoin Sodium Extended 100 mg PO TID 04/28/17 05/28/20 [Dilantin] Albuterol Nebulized [Ventolin 2.5 mg INHALATION RT-TID PRN 11/17/18 05/28/20 Nebulized] Umeclidinium [place] [Incruse 1 puff INHALATION RT-DAILY 11/17/18 05/28/20 Ellipta] SUMAtriptan succinate [Imitrex] 50 mg PO BID PRN 11/18/18 05/28/20 Loratadine 10 mg PO DAILY 12/13/18 05/28/20 Albuterol Inhaler [Ventolin Hfa 2 puff INHALATION RT-Q4H PRN 01/18/20 05/28/20 Inhaler] Ipratropium-Albuterol Nebulize 3 ml INHALATION RT-QID PRN 01/18/20 05/28/20 [Duoneb 0.5 mg-3 mg/3 ml Soln] Baclofen [Lioresal] 20 mg PO TID 05/28/20 05/28/20 Famotidine 20 mg PO BID 05/28/20 05/28/20 Fluticasone Nasal [place] [Flonase 2 spr EA NOSTRIL DAILY PRN 05/28/20 05/28/20 Nasal [place]] Gabapentin [Neurontin] 400 mg PO TID 05/28/20 05/28/20 INSULIN LISPRO (humaLOG) [humaLOG] 15 units SQ AC-TID 05/28/20 05/28/20 Insulin Glargine,Hum.rec.anlog 20 unit SQ BID 05/28/20 05/28/20 [Lantus Solostar] Tiotropium 18 Mcg/Puff [Spiriva] 1 puff INHALATION RT-DAILY 05/28/20 05/28/20 Allergies Allergy/AdvReac Type Severity Reaction Status Date / Time cephalexin [From Keflex] AdvReac Nausea & Verified 05/28/20 20:34 Vomiting codeine AdvReac Abdominal Verified 05/28/20 20:34 Pain Review of Systems ROS Statement: Those systems with pertinent positive or pertinent negative responses have been documented in the HPI. ROS Other: All systems not noted in ROS Statement are negative. Past Medical History Past Medical History: Diabetes Mellitus, Hyperlipidemia, Hypertension, Seizure Disorder Additional Past Medical History / Comment(s): Closed Head Injury, migraines History of Any Multi-Drug Resistant Organisms: MRSA Date of last positivie culture/infection: 1999 MDRO Source:: R hip Past Surgical History: Orthopedic Surgery Additional Past Surgical History / Comment(s): right leg Past Anesthesia/Blood Transfusion Reactions: No Reported Reaction Past Psychological History: No Psychological Hx Reported Smoking Status: Current every day smoker Past Alcohol Use History: None Reported Past Drug Use History: Marijuana - Past Family History Father Family Medical History: Cancer Mother Family Medical History: Cancer General Exam Limitations: no limitations General appearance: alert, in no apparent distress Head exam: Present: atraumatic, normocephalic, normal inspection Eye exam: Present: normal appearance, PERRL, EOMI. Absent: scleral icterus, conjunctival injection, periorbital swelling ENT exam: Present: normal exam, mucous membranes moist Neck exam: Present: normal inspection. Absent: tenderness, meningismus, lymphadenopathy Respiratory exam: Present: normal lung sounds bilaterally. Absent: respiratory distress, wheezes, rales, rhonchi, stridor Cardiovascular Exam: Present: regular rate, normal rhythm, normal heart sounds. Absent: systolic murmur, diastolic murmur, rubs, gallop, clicks GI/Abdominal exam: Present: soft, normal bowel sounds. Absent: distended, tenderness, guarding, rebound, rigid Extremities exam: Present: normal inspection, full ROM, normal capillary refill. Absent: tenderness, pedal edema, joint swelling, calf tenderness Back exam: Present: normal inspection Neurological exam: Present: alert, oriented X3, CN II-XII intact Psychiatric exam: Present: normal affect, normal mood Skin exam: Present: warm, dry, intact, normal color. Absent: rash Course Vital Signs 05/28/20 05/28/20 17:00 18:55 Temperature 97.8 F Pulse Rate 98 94 Respiratory 16 16 Rate Blood Pressure 141/84 154/97 O2 Sat by Pulse 99 100 Oximetry - Reevaluation(s) Reevaluation #1: 05/28/20 20:45 Medical records reviewed Reevaluation #2: 05/28/20 20:45 Patient without significant complaints currently blood sugar is improved patient feels improved awake and alert Reevaluation #3: 05/28/20 20:45 Spoke with patient regarding findings and questions have been answered Medical Decision Making - Medical Decision Making 54 male DF for evaluation of weakness and fatigue. Lab values computed tomography scan negative. Blood sugar is improved here in the ER and can be discharged home - Lab Data Result diagrams: 05/28/20 17:57 05/28/20 17:57 Lab Results 05/28/20 05/28/20 05/28/20 Range/Units 17:57 17:57 17:57 WBC 7.1 (3.8-10.6) k/uL RBC 4.40 (4.30-5.90) m/uL Hgb 14.4 (13.0-17.5) gm/dL Hct 43.8 (39.0-53.0) % MCV 99.7 (80.0-100.0) fL MCH 32.7 (25.0-35.0) pg MCHC 32.8 (31.0-37.0) g/dL RDW 12.6 (11.5-15.5) % Plt Count 249 (150-450) k/uL MPV 7.6 Neutrophils % 78 % Lymphocytes % 16 % Monocytes % 3 % Eosinophils % 1 % Basophils % 1 % Neutrophils # 5.5 (1.3-7.7) k/uL Lymphocytes # 1.1 (1.0-4.8) k/uL Monocytes # 0.2 (0-1.0) k/uL Eosinophils # 0.1 (0-0.7) k/uL Basophils # 0.0 (0-0.2) k/uL Sodium 133 L (137-145) mmol/L Potassium 4.8 (3.5-5.1) mmol/L Chloride 103 (98-107) mmol/L Carbon Dioxide 16 L (22-30) mmol/L Anion Gap 14 mmol/L BUN 33 H (9-20) mg/dL Creatinine 0.90 (0.66-1.25) mg/dL Est GFR (CKD-EPI)AfAm >90 (>60 ml/min/1.73 sqM) Est GFR (CKD-EPI)NonAf >90 (>60 ml/min/1.73 sqM) Glucose 537 H* (74-99) mg/dL POC Glucose (mg/dL) (75-99) mg/dL POC Glu Wire Weaver ID Calcium 8.9 (8.4-10.2) mg/dL Phosphorus 4.9 H (2.5-4.5) mg/dL Magnesium 2.3 (1.6-2.3) mg/dL Total Bilirubin 0.7 (0.2-1.3) mg/dL AST 53 (17-59) U/L ALT 48 (4-49) U/L Alkaline Phosphatase 248 H (38-126) U/L Creatine Kinase 388 H (55-170) U/L Troponin I (0.000-0.034) ng/mL Total Protein 6.6 (6.3-8.2) g/dL Albumin 4.0 (3.5-5.0) g/dL TSH 0.200 L (0.465-4.680) mIU/L Urine Color Colorless Urine Appearance Clear (Clear) Urine pH 5.0 (5.0-8.0) Ur Specific [place] 1.025 (1.001-1.035) Urine Protein Negative (Negative) Urine Glucose (UA) 4+ H (Negative) Urine Ketones 2+ H (Negative) Urine Blood Negative (Negative) Urine Nitrite Positive (Negative) Urine Bilirubin Negative (Negative) Urine Urobilinogen <2.0 (<2.0) mg/dL Ur Leukocyte Esterase Moderate H (Negative) Urine RBC 2 (0-5) /hpf Urine WBC 31 H (0-5) /hpf Urine WBC Clumps Few H (None) /hpf Ur Squamous Epith Cells <1 (0-4) /hpf Urine Bacteria Occasional H (None) /hpf Urine Mucus Rare H (None) /hpf Salicylates <1.0 mg/dL Urine Opiates Screen Not Detected (NotDetected) Ur Oxycodone Screen Not Detected (NotDetected) Urine Methadone Screen Not Detected (NotDetected) Ur Propoxyphene Screen Not Detected (NotDetected) Acetaminophen <10.0 ug/mL Ur Barbiturates Screen Not Detected (NotDetected) U Tricyclic Antidepress Not Detected (NotDetected) Ur Phencyclidine Scrn Not Detected (NotDetected) Ur Amphetamines Screen Detected H (NotDetected) U Methamphetamines Scrn Not Detected (NotDetected) U Benzodiazepines Scrn Not Detected (NotDetected) Urine Cocaine Screen Not Detected (NotDetected) U Marijuana (THC) Screen Not Detected (NotDetected) Serum Alcohol <10 mg/dL 05/28/20 05/28/20 Range/Units 17:57 20:33 WBC (3.8-10.6) k/uL RBC (4.30-5.90) m/uL Hgb (13.0-17.5) gm/dL Hct (39.0-53.0) % MCV (80.0-100.0) fL MCH (25.0-35.0) pg MCHC (31.0-37.0) g/dL RDW (11.5-15.5) % Plt Count (150-450) k/uL MPV Neutrophils % % Lymphocytes % % Monocytes % % Eosinophils % % Basophils % % Neutrophils # (1.3-7.7) k/uL Lymphocytes # (1.0-4.8) k/uL Monocytes # (0-1.0) k/uL Eosinophils # (0-0.7) k/uL Basophils # (0-0.2) k/uL Sodium (137-145) mmol/L Potassium (3.5-5.1) mmol/L Chloride (98-107) mmol/L Carbon Dioxide (22-30) mmol/L Anion Gap mmol/L BUN (9-20) mg/dL Creatinine (0.66-1.25) mg/dL Est GFR (CKD-EPI)AfAm (>60 ml/min/1.73 sqM) Est GFR (CKD-EPI)NonAf (>60 ml/min/1.73 sqM) Glucose (74-99) mg/dL POC Glucose (mg/dL) 362 H (75-99) mg/dL POC Glu Wire Weaver ID Sandy Garcias Calcium (8.4-10.2) mg/dL Phosphorus (2.5-4.5) mg/dL Magnesium (1.6-2.3) mg/dL Total Bilirubin (0.2-1.3) mg/dL AST (17-59) U/L ALT (4-49) U/L Alkaline Phosphatase (38-126) U/L Creatine Kinase (55-170) U/L Troponin I <0.012 (0.000-0.034) ng/mL Total Protein (6.3-8.2) g/dL Albumin (3.5-5.0) g/dL TSH (0.465-4.680) mIU/L Urine Color Urine Appearance (Clear) Urine pH (5.0-8.0) Ur Specific [place] (1.001-1.035) Urine Protein (Negative) Urine Glucose (UA) (Negative) Urine Ketones (Negative) Urine Blood (Negative) Urine Nitrite (Negative) Urine Bilirubin (Negative) Urine Urobilinogen (<2.0) mg/dL Ur Leukocyte Esterase (Negative) Urine RBC (0-5) /hpf Urine WBC (0-5) /hpf Urine WBC Clumps (None) /hpf Ur Squamous Epith Cells (0-4) /hpf Urine Bacteria (None) /hpf Urine Mucus (None) /hpf Salicylates mg/dL Urine Opiates Screen (NotDetected) Ur Oxycodone Screen (NotDetected) Urine Methadone Screen (NotDetected) Ur Propoxyphene Screen (NotDetected) Acetaminophen ug/mL Ur Barbiturates Screen (NotDetected) U Tricyclic Antidepress (NotDetected) Ur Phencyclidine Scrn (NotDetected) Ur Amphetamines Screen (NotDetected) U Methamphetamines Scrn (NotDetected) U Benzodiazepines Scrn (NotDetected) Urine Cocaine Screen (NotDetected) U Marijuana (THC) Screen (NotDetected) Serum Alcohol mg/dL - EKG Data -: EKG Interpreted by Me (EKG is sinus tachycardia 106 [place] 172 QRS 88 QTc 464) - Radiology Data Radiology results: report reviewed (CT brain negative for acute disease), image reviewed Disposition Clinical Impression: Fatigue Disposition: HOME SELF-CARE Condition: Good Instructions (If sedation given, give patient instructions): Fatigue (ED) Is patient prescribed a controlled substance at d/c from ED?: No Referrals: Alexy Evangelista MD [Primary Care Provider] - 1-2 days
[2020-05-28] MEDS ORDERED: SODIUM CHLORIDE 0.9% 1,000 ML IV STA (17:43)
[2020-05-28 18:13] LABS: Basophils % (A) 1 %; Eosinophils # (A) 0.1 k/uL (0-0.7); Eosinophils % (A) 1 %; HCT 43.8 % (39.0-53.0); HGB 14.4 gm/dL (13.0-17.5); Lymphocytes # (A) 1.1 k/uL (1.0-4.8); Lymphocytes % (A) 16 %; MCH 32.7 pg (25.0-35.0); MCHC 32.8 g/dL (31.0-37.0); MCV 99.7 fL (80.0-100.0); Mean Platelet Volume 7.6; Monocytes # (A) 0.2 k/uL (0-1.0); Monocytes % (A) 3 %; Neutrophils # (A) 5.5 k/uL (1.3-7.7); Neutrophils % (A) 78 %; Platelet Count 249 k/uL (150-450); RDW 12.6 % (11.5-15.5); WBC 7.1 k/uL (3.8-10.6)
[2020-05-28 18:18] LABS: Appearance,Urine Clear (Clear); Bacteria,Urine Occasional /hpf; Bilirubin,Urine Negative (Negative); Blood,Urine Negative (Negative); Color,Urine Colorless; Glucose,Urine (UA) 4+ (Negative); Leukocyte Esterase,Urine Moderate (Negative); Mucus,Urine Rare /hpf; Nitrite,Urine Positive (Negative); Protein,Urine Negative (Negative); RBC,Urine 2 /hpf (0-5); Specific Gravity,Urine 1.025 (1.001-1.035); Squamous Epithelial Cell,Urine <1 /hpf (0-4); Urobilinogen,Urine <2.0 mg/dL (<2.0); WBC,Urine 31 /hpf (0-5)
[2020-05-28 18:26] LABS: ALT 48 U/L (4-49); AST 53 U/L (17-59); Acetaminophen <10.0 ug/mL; African American GFR (CKD) >90 (>60 ml/min/1.73 sqM); Alcohol <10 mg/dL; Alkaline Phosphatase 248 U/L (38-126); Anion Gap 14 mmol/L; Blood Urea Nitrogen 33 mg/dL (9-20); Calcium 8.9 mg/dL (8.4-10.2); Carbon Dioxide 16 mmol/L (22-30); Chloride 103 mmol/L (98-107); Creatine Kinase 388 U/L (55-170); Magnesium 2.3 mg/dL (1.6-2.3); Non-African American GFR(CKD) >90 (>60 ml/min/1.73 sqM); Phosphorus 4.9 mg/dL (2.5-4.5); Potassium 4.8 mmol/L (3.5-5.1); Salicylate <1.0 mg/dL; Sodium 133 mmol/L (137-145); Total Bilirubin 0.7 mg/dL (0.2-1.3); Total Protein 6.6 g/dL (6.3-8.2)
[2020-05-28 18:30] LABS: Amphetamine Screen,Urine Detected (NotDetected); Barbiturate Screen,Urine Not Detected (NotDetected); Benzodiazepines Screen,Urine Not Detected (NotDetected); Cocaine Screen,Urine Not Detected (NotDetected); Methadone Screen, Urine Not Detected (NotDetected); Opiate Screen,Urine Not Detected (NotDetected); Oxycodone Screen, Urine Not Detected (NotDetected); Phencyclidine Screen,Urine Not Detected (NotDetected); Tricyclic Antidepressant,Urine Not Detected (NotDetected); Urn Cannabinoid Scrn Not Detected (NotDetected)
[2020-05-28 18:36] LABS: Ketones,Urine 2+ (Negative)
[2020-05-28 18:38] LABS: Glucose 537 mg/dL (74-99)
--- NOTE | 2020-05-28 19:27 | CT ---
EXAMINATION TYPE: CT brain wo con DATE OF EXAM: 05/28/2020 COMPARISON: HISTORY: Patient unresponsive at time of scan. CT DLP: 1158.4 mGycm Automated exposure control for dose reduction was used. Images were obtained of the brain without contrast. There is cerebral atrophy. There is no mass effect nor midline shift. There is no sign of intracrania l hemorrhage. The calvarium is intact. There is normal aeration of the mastoid sinuses. There is muco marcelo thickening in the maxillary and ethmoid sinuses. IMPRESSION: Mild atrophy. No acute intracranial abnormality. Sinusitis. Brain unchanged compared to old exam.
[2020-05-28 20:36] LABS: Glucose,Whole Blood 362 mg/dL (75-99)
[2020-05-28] MEDS ORDERED: AZITHROMYCIN 500 MG TAB PO STA (20:40)
[2020-05-28] MEDS ORDERED: LEVOFLOXACIN 500 MG TAB PO STA (20:41)
[2020-05-28] MEDS ORDERED: INSULIN REGULAR 100 UNIT/ML VIAL IV ONE (20:44)
[2020-05-28 21:36] VITALS: RESP 18
[2020-05-28 22:37] VITALS: BP 156/98; PULSE 96; TEMP 97.6
== END 2020-05-28 22:00 | disposition home or self-care (01) ==
LOC: EC 16:57
DX: R53.83 Other fatigue (principal); R53.1 Weakness; E11.65 Type 2 diabetes mellitus with hyperglycemia; E78.5 Hyperlipidemia, unspecified; I10 Essential (primary) hypertension; G40.909 Epilepsy, unspecified, not intractable, without status epilepticus; F17.200 Nicotine dependence, unspecified, uncomplicated; Z79.4 Long term (current) use of insulin; Z79.899 Other long term (current) drug therapy; Z88.1 Allergy status to other antibiotic agents; Z88.5 Allergy status to narcotic agent; Z86.14 Personal history of Methicillin resistant Staphylococcus aureus infection; Z86.69 Personal history of other diseases of the nervous system and sense organs
CPT/HCPCS: 36415; 93005; 80053; 82550; 83735; 84100; 84443; 84484; 85025; 81001; 80306; 83520; 87086; 70450; 99285; 96360; G0480 ×2; 80320; 80329